=== PATIENT | female | born 1955 | race Two or more races ===

== ENCOUNTER 2020-07-03 10:24 | Outpatient (REF) | payer OTHER, SELFPAY ==
--- NOTE | ~2020-07-03 | XR_ITS ---
EXAMINATION: XR CHEST XR KNEE, LEFT XR SHOULDER, LEFT CLINICAL INFORMATION: Pain left knee and left shoulder. Chest pain. COMPARISON: None TECHNIQUE: 2 views chest. 4 views left knee and 4 views left shoulder. FINDINGS: LEFT SHOULDER: The glenohumeral joint space is normal. There is mild reduction of left AC joint space. No fracture, dislocation, loose bodies, or soft tissue calcification seen. LEFT KNEE: There is mild loss of medial and patellofemoral compartment joint space. No visible acute fracture, dislocation or lytic process seen. No abnormal joint effusion seen. CHEST 2 VIEWS: The lungs are well expanded and clear. The heart size and pulmonary vascularity are normal. There is cement augmentation of T12, T9 and T8 vertebrae for compression fracture. XR/XR chest 2V IMPRESSION: Mild degenerative changes left AC joint. The left shoulder joint is otherwise unremarkable. Mild degenerative changes medial and patellofemoral compartment left knee. No acute fracture, dislocation or subluxation seen. No acute cardiopulmonary process seen in the chest. There is cement augmentation for compression fractures, as described above.
--- NOTE | ~2020-07-03 | XR_ITS ---
EXAMINATION: XR CHEST XR KNEE, LEFT XR SHOULDER, LEFT CLINICAL INFORMATION: Pain left knee and left shoulder. Chest pain. COMPARISON: None TECHNIQUE: 2 views chest. 4 views left knee and 4 views left shoulder. FINDINGS: LEFT SHOULDER: The glenohumeral joint space is normal. There is mild reduction of left AC joint space. No fracture, dislocation, loose bodies, or soft tissue calcification seen. LEFT KNEE: There is mild loss of medial and patellofemoral compartment joint space. No visible acute fracture, dislocation or lytic process seen. No abnormal joint effusion seen. CHEST 2 VIEWS: The lungs are well expanded and clear. The heart size and pulmonary vascularity are normal. There is cement augmentation of T12, T9 and T8 vertebrae for compression fracture. XR/XR knee LT 4V IMPRESSION: Mild degenerative changes left AC joint. The left shoulder joint is otherwise unremarkable. Mild degenerative changes medial and patellofemoral compartment left knee. No acute fracture, dislocation or subluxation seen. No acute cardiopulmonary process seen in the chest. There is cement augmentation for compression fractures, as described above.
--- NOTE | ~2020-07-03 | XR_ITS ---
EXAMINATION: XR CHEST XR KNEE, LEFT XR SHOULDER, LEFT CLINICAL INFORMATION: Pain left knee and left shoulder. Chest pain. COMPARISON: None TECHNIQUE: 2 views chest. 4 views left knee and 4 views left shoulder. FINDINGS: LEFT SHOULDER: The glenohumeral joint space is normal. There is mild reduction of left AC joint space. No fracture, dislocation, loose bodies, or soft tissue calcification seen. LEFT KNEE: There is mild loss of medial and patellofemoral compartment joint space. No visible acute fracture, dislocation or lytic process seen. No abnormal joint effusion seen. CHEST 2 VIEWS: The lungs are well expanded and clear. The heart size and pulmonary vascularity are normal. There is cement augmentation of T12, T9 and T8 vertebrae for compression fracture. XR/XR shoulder LT min 2V IMPRESSION: Mild degenerative changes left AC joint. The left shoulder joint is otherwise unremarkable. Mild degenerative changes medial and patellofemoral compartment left knee. No acute fracture, dislocation or subluxation seen. No acute cardiopulmonary process seen in the chest. There is cement augmentation for compression fractures, as described above.
[2020-07-03 10:58] LABS: Basophils Percent Auto 0.2 % (0-2); Eosinophils Absolute Auto 0.6 X10*3/uL (0.0-0.4); Eosinophils Percent Auto 9.5 % (0-4); Hematocrit 43.4 % (37-47); Hemoglobin 14.1 g/dl (12.0-16.0); Imm Gran Abs Auto 0.03 X10*3/uL (0.00-0.03); Imm Gran Pct Auto 0.5 % (0.0-0.4); Lymphocytes Absolute Auto 0.7 X10*3/uL (1.2-4.9); Lymphocytes Percent Auto 10.6 % (20-40); MANUAL DIFF FLAG SCAN; Mean Corpuscular HGB Conc 32.5 g/dl (31.0-35.0); Mean Corpuscular Hemoglobin 30.8 pg (27.0-33.0); Mean Corpuscular Volume 94.8 fL (80-98); Mean Platelet Volume 10.2 fL (9.4-12.3); Monocytes Absolute Auto 0.5 X10*3/uL (0.1-1.2); Monocytes Percent Auto 6.9 % (2-11); Neutrophils Absolute Auto 4.7 X10*3/uL (2.0-8.3); Neutrophils Percent Auto 72.3 % (45-73); Platelet Count 158 X10*3/uL (160-400); Red Blood Count 4.58 X10*6/uL (4.20-5.50); Red Cell Distribution Width 12.6 % (11.0-16.0); SCAN SMEAR FLAG 1; White Blood Count 6.5 X10*3/uL (4.8-10.8)
[2020-07-03 11:27] LABS: Alanine Aminotransferase 16 U/L (0-31); Albumin Level 4.3 g/dL (3.5-5.0); Alkaline Phosphatase 92 U/L (39-117); Anion Gap 15 (12-20); Aspartate Amino Transferase 19 U/L (5-31); Bilirubin Total 0.7 mg/dL (0.0-1.0); Blood Urea Nitrogen 15 mg/dL (9-16); Calcium 9.1 mg/dL (8.4-10.2); Carbon Dioxide 25 mmol/L (22-29); Chloride 106 mmol/L (96-108); Estimated Glomerular Filt Rate > 60; Glucose Random 109 mg/dL (60-115); Magnesium 1.8 mg/dL (1.6-2.6); Potassium 4.1 mmol/L (3.3-5.1); Sodium 142 mmol/L (135-145); Total Protein 7.2 g/dL (6.5-8.0)
[2020-07-03 11:28] LABS: SLIDE REVIEW VERIFIED
[2020-07-03 11:51] LABS: TSH reflex Free T4 0.83 uIU/mL (0.32-4.0)
[2020-07-03 12:03] LABS: Erythrocyte Sedimentation Rate 21 MM/HR (0-20)
== END 2020-07-03 10:25 | disposition home or self-care (01) ==
LOC: HO.LAB 10:24
PROVIDERS: PCP Physician Assistant; Visit Provider Internal Medicine
DX: R25.2 Cramp and spasm (principal); R07.89 Other chest pain; M25.562 Pain in left knee; M25.512 Pain in left shoulder; I10 Essential (primary) hypertension; M79.7 Fibromyalgia; E78.00 Pure hypercholesterolemia, unspecified
CPT/HCPCS: 36415; 71046; 73030; 73564; 80053; 83735; 84443; 85025; 85652

== ENCOUNTER 2021-01-08 10:02 | Outpatient (REF) | payer OTHER, SELFPAY ==
[2021-01-08 11:13] LABS: B Type Natriuretic Peptide 43 pg/mL (<100)
[2021-01-08 11:27] LABS: Alanine Aminotransferase 34 U/L (0-31); Albumin Level 4.3 g/dL (3.5-5.0); Alkaline Phosphatase 75 U/L (39-117); Anion Gap 13 (12-20); Aspartate Amino Transferase 39 U/L (5-31); Bilirubin Total 0.2 mg/dL (0.0-1.0); Blood Urea Nitrogen 18 mg/dL (9-16); C Reactive Protein 0.55 mg/dL (< or = 0.50); Calcium 9.7 mg/dL (8.4-10.2); Carbon Dioxide 25 mmol/L (22-29); Chloride 109 mmol/L (96-108); Cholesterol 222 mg/dL; Estimated Glomerular Filt Rate > 60; Glucose Fasting 105 mg/dL (60-99); HDL Cholesterol 56 mg/dL; LDL Cholesterol Calculated 130 mg/dl; Rheumatoid Factor < 15.0 IU/mL (<15.0); Sodium 142 mmol/L (135-145); Total Protein 7.2 g/dL (6.5-8.0); Triglycerides 184 mg/dL
[2021-01-08 11:38] LABS: TSH reflex Free T4 0.76 uIU/mL (0.32-4.0)
[2021-01-08 11:44] LABS: Erythrocyte Sedimentation Rate 13 MM/HR (0-20)
[2021-01-11 19:41] LABS: Anti Nuclear Antibody Pattern Nuclear, Homogeneous; Anti Nuclear Antibody Screen POSITIVE (NEGATIVE); Anti Nuclear Antibody Titer 1:40 titer
== END 2021-01-08 10:03 | disposition home or self-care (01) ==
LOC: HO.LAB 10:02
PROVIDERS: PCP Physician Assistant; Visit Provider Physician Assistant
DX: J42 Unspecified chronic bronchitis (principal); M35.3 Polymyalgia rheumatica; I10 Essential (primary) hypertension; E66.9 Obesity, unspecified
CPT/HCPCS: 36415; 80053; 80061; 83880; 84443; 85652; 86038; 86039; 86140; 86431

== ENCOUNTER 2021-01-24 14:53 | Outpatient (REF) | payer OTHER, SELFPAY ==
--- NOTE | ~2021-01-24 | MM_ITS ---
EXAMINATION: MM SCREENING DIGITAL BREAST TOMOSYNTHESIS, BILATERAL CLINICAL INFORMATION: Screening. Asymptomatic. The lifetime risk of breast cancer based on the Tyrer-Cuzick Model is 5%. COMPARISON: Mammography: 03/14/2018, 12/10/2015 TECHNIQUE: Digital breast tomosynthesis is performed in both the craniocaudal and mediolateral oblique views along with computer-aided detection (CAD). Synthesized 2D images are generated from the tomosynthesis. Additional left MLO view is provided. FINDINGS: There are scattered areas of fibroglandular density (ACR BI-RADS breast composition Category b). There are no significant masses, abnormal calcifications, or other abnormalities. Parenchymal pattern is similar to prior study. The axilla and skin contours are unremarkable. MM/MM tomosynthesis screening BI IMPRESSION: No mammographic evidence of malignancy. ASSESSMENT: BI-RADS 1: Negative RECOMMENDATION: Routine annual mammography screening. This patient's information was entered into a reminder system with a target due date for their next mammogram.
== END 2021-01-24 14:54 | disposition home or self-care (01) ==
LOC: HO.MAMMO 14:53
PROVIDERS: Visit Provider Physician Assistant
DX: Z12.31 Encounter for screening mammogram for malignant neoplasm of breast (principal)
CPT/HCPCS: 77063; 77067

== ENCOUNTER 2021-03-02 10:05 | Outpatient (REF) | payer OTHER, SELFPAY ==
--- NOTE | ~2021-03-02 | XR_ITS ---
EXAMINATION: XR CHEST CLINICAL INFORMATION: Chronic bronchitis COMPARISON: Previous chest x-ray June 2020 TECHNIQUE: 2 views of the chest were obtained. FINDINGS: The cardiac and mediastinal contours are stable. The lungs are clear. There is no pleural effusion or pneumothorax. There is increased thoracic kyphosis. There are multiple old thoracic vertebral body compression fractures and post vertebroplasty change. This is similar to most recent exam June 2020. XR/XR chest 2V IMPRESSION: No evidence for acute disease in the chest.
[2021-03-02 11:21] LABS: C Reactive Protein 5.91 mg/dL (< or = 0.50)
[2021-03-02 12:02] LABS: Erythrocyte Sedimentation Rate 44 MM/HR (0-20)
== END 2021-03-02 10:06 | disposition home or self-care (01) ==
LOC: HO.XRAY 10:05
PROVIDERS: PCP Physician Assistant; Visit Provider Physician Assistant
DX: M35.3 Polymyalgia rheumatica (principal); J42 Unspecified chronic bronchitis
CPT/HCPCS: 36415; 71046; 85652; 86140

== ENCOUNTER 2021-06-03 13:40 | Outpatient (REF) | payer OTHER, SELFPAY ==
[2021-06-03 14:31] LABS: C Reactive Protein 1.11 mg/dL (< or = 0.50)
[2021-06-03 14:46] LABS: Erythrocyte Sedimentation Rate 23 MM/HR (0-20)
== END 2021-06-03 13:41 | disposition home or self-care (01) ==
LOC: HO.LAB 13:40
PROVIDERS: PCP Physician Assistant; Visit Provider Physician Assistant
DX: M35.3 Polymyalgia rheumatica (principal)
CPT/HCPCS: 36415; 85652; 86140

== ENCOUNTER → 2021-07-15 09:29 | Outpatient (REF) | payer OTHER, SELFPAY ==
--- NOTE | 2021-07-15 09:32 | CA_ITS ---
Acquisition Time: 2021-07-15 09:47:41 Total Exercise Time: 00:01:21 Test Indications: sob Medications: SEE CHART Protocol: GRAHAM Max HR: 130 BPM 84% of Pred: 154 BPM Max BP: 225/090 mmHG Max Work Load: 3.4 METS Exercise stress test with exercise 1 min 21 sec of Graham protocol, achieving 85% MPHR, with severe shortness of breath and need to stop exercise, no chest discomfort, with isolated PVC, with hypertensive response to exercise with max BP 225/90, with nondiagnostic EKG for ischemia due to suboptimal exercise time, however no ischemic changes noted at achieved workload. In recovery her breathing gradually improved to baseline. BP normalized. Test reviewed with Dr aLke. Message sent to Neville Cosby with report and recommendation for a pharmacological nuclear stress test. Referred By: Carlos Cosby Overread By: CARLA CHANDLER
== END ==
LOC: HO.CARD 09:29
PROVIDERS: PCP Physician Assistant; Visit Provider Physician Assistant
DX: R06.02 Shortness of breath (principal)
CPT/HCPCS: 93017

== ENCOUNTER 2021-08-29 15:21 | Outpatient (REF) | payer OTHER, SELFPAY ==
--- NOTE | 2021-08-29 08:25 | PFT_ITS ---
FLOWS: FEV1 of 42% of predicted at 0.85 L. FVC of 62% of predicted at 1.61 L. FEV1 to FVC ratio of 0.53. No bronchodilator response. LUNG VOLUMES: Total lung capacity 83% of predicted at 3.73 L. Residual volume 115% of predicted at 2.21 L. Slow vital capacity 60% of predicted at 1.52 L. Expiratory reserve volume 34% of predicted at 0.20 L. Diffusion capacity is severely decreased, diffusion capacity adjust to being moderately decreased after correction for alveolar ventilation. IMPRESSION: Severe obstructive ventilatory defect with no bronchodilator response. Decreased expiratory reserve volume suggests extrathoracic restriction likely secondary to abdominal obesity. Decreased diffusion capacity suggests emphysema. MD ADA Marquez/MODL / [id number]
== END 2021-08-29 15:22 | disposition home or self-care (01) ==
LOC: HO.RESP 15:21
PROVIDERS: PCP Physician Assistant; Visit Provider Physician Assistant
DX: J42 Unspecified chronic bronchitis (principal); R06.02 Shortness of breath
CPT/HCPCS: 94060; 94618; 94727; 94729

== ENCOUNTER → 2021-08-30 15:22 | Outpatient (BNVA) | payer OTHER, SELFPAY | PROVIDERS: PCP Physician Assistant; Visit Provider Internal Medicine Pulmonary Disease | DX: J42 Unspecified chronic bronchitis (principal) ==

== ENCOUNTER → 2021-10-06 10:44 | Outpatient (BNVA) | payer OTHER, SELFPAY | PROVIDERS: PCP Physician Assistant; Visit Provider Internal Medicine Pulmonary Disease | DX: J42 Unspecified chronic bronchitis (principal) | CPT/HCPCS: 94618 ==

== ENCOUNTER 2021-11-25 10:43 | Outpatient (REF) | payer OTHER, SELFPAY ==
--- NOTE | ~2021-11-25 | XR_ITS ---
EXAMINATION: XR CHEST XR SCAPULA-LEFT XR THORACIC SPINE CLINICAL INFORMATION: Unspecified chronic bronchitis and radiculopathy thoracic region. COMPARISON: Chest radiograph done on 03/02/2021. TECHNIQUE: 2 views of the chest, 2 views, 3 images of the thoracic spine and 2 views of the left scapula were obtained. FINDINGS: CHEST: Persistent stable prominent bronchovascular markings are present bilaterally throughout both lung burr, may represent peribronchiolar thickening related to clinically known chronic bronchitis. No evidence of any superimposed dense airspace consolidation. The cardiac mediastinal silhouette is within normal limit. No evidence of any pleural effusion or pneumothorax. Overall, no significant change. THORACIC SPINE: Post vertebral augmentation-related changes are noted at mid to lower thoracic spine, similar to prior study dated 03/02/2021. Moderate diffuse osteopenia. No evidence of any new compression fracture. Multilevel moderate degenerative spondylosis. The posterior appendages are intact. The paraspinal soft tissues are unremarkable. LEFT SCAPULA: Moderate diffuse osteopenia. The scapula is intact. Soft tissues are unremarkable. XR/XR thoracic spine 2V IMPRESSION: 1. The chest radiograph shows no significant change since most recent prior study dated 03/02/2021. Reidentified diffuse bronchovascular prominence, most consistent with clinically known chronic bronchitis. 2. The radiographs of the thoracic spine and the left scapula shows moderate diffuse osteopenia and superimposed post vertebral augmentation-related changes at mid to lower thoracic spine, similar to prior study dated 03/02/2021. 3. Specifically, no radiographic evidence of any new compression fracture at the thoracic spine or displaced left scapular fracture.
--- NOTE | ~2021-11-25 | XR_ITS ---
EXAMINATION: XR CHEST XR SCAPULA-LEFT XR THORACIC SPINE CLINICAL INFORMATION: Unspecified chronic bronchitis and radiculopathy thoracic region. COMPARISON: Chest radiograph done on 03/02/2021. TECHNIQUE: 2 views of the chest, 2 views, 3 images of the thoracic spine and 2 views of the left scapula were obtained. FINDINGS: CHEST: Persistent stable prominent bronchovascular markings are present bilaterally throughout both lung burr, may represent peribronchiolar thickening related to clinically known chronic bronchitis. No evidence of any superimposed dense airspace consolidation. The cardiac mediastinal silhouette is within normal limit. No evidence of any pleural effusion or pneumothorax. Overall, no significant change. THORACIC SPINE: Post vertebral augmentation-related changes are noted at mid to lower thoracic spine, similar to prior study dated 03/02/2021. Moderate diffuse osteopenia. No evidence of any new compression fracture. Multilevel moderate degenerative spondylosis. The posterior appendages are intact. The paraspinal soft tissues are unremarkable. LEFT SCAPULA: Moderate diffuse osteopenia. The scapula is intact. Soft tissues are unremarkable. XR/XR scapula LT IMPRESSION: 1. The chest radiograph shows no significant change since most recent prior study dated 03/02/2021. Reidentified diffuse bronchovascular prominence, most consistent with clinically known chronic bronchitis. 2. The radiographs of the thoracic spine and the left scapula shows moderate diffuse osteopenia and superimposed post vertebral augmentation-related changes at mid to lower thoracic spine, similar to prior study dated 03/02/2021. 3. Specifically, no radiographic evidence of any new compression fracture at the thoracic spine or displaced left scapular fracture.
--- NOTE | ~2021-11-25 | XR_ITS ---
EXAMINATION: XR CHEST XR SCAPULA-LEFT XR THORACIC SPINE CLINICAL INFORMATION: Unspecified chronic bronchitis and radiculopathy thoracic region. COMPARISON: Chest radiograph done on 03/02/2021. TECHNIQUE: 2 views of the chest, 2 views, 3 images of the thoracic spine and 2 views of the left scapula were obtained. FINDINGS: CHEST: Persistent stable prominent bronchovascular markings are present bilaterally throughout both lung burr, may represent peribronchiolar thickening related to clinically known chronic bronchitis. No evidence of any superimposed dense airspace consolidation. The cardiac mediastinal silhouette is within normal limit. No evidence of any pleural effusion or pneumothorax. Overall, no significant change. THORACIC SPINE: Post vertebral augmentation-related changes are noted at mid to lower thoracic spine, similar to prior study dated 03/02/2021. Moderate diffuse osteopenia. No evidence of any new compression fracture. Multilevel moderate degenerative spondylosis. The posterior appendages are intact. The paraspinal soft tissues are unremarkable. LEFT SCAPULA: Moderate diffuse osteopenia. The scapula is intact. Soft tissues are unremarkable. XR/XR chest 2V IMPRESSION: 1. The chest radiograph shows no significant change since most recent prior study dated 03/02/2021. Reidentified diffuse bronchovascular prominence, most consistent with clinically known chronic bronchitis. 2. The radiographs of the thoracic spine and the left scapula shows moderate diffuse osteopenia and superimposed post vertebral augmentation-related changes at mid to lower thoracic spine, similar to prior study dated 03/02/2021. 3. Specifically, no radiographic evidence of any new compression fracture at the thoracic spine or displaced left scapular fracture.
== END 2021-11-25 10:44 | disposition home or self-care (01) ==
LOC: HO.XRAY 10:43
PROVIDERS: PCP Physician Assistant; Visit Provider Physician Assistant
DX: M54.14 Radiculopathy, thoracic region (principal); J42 Unspecified chronic bronchitis
CPT/HCPCS: 71046; 72070; 73010

== ENCOUNTER 2022-02-17 14:29 | Outpatient (REF) | payer MEDICARE, SELFPAY ==
--- NOTE | ~2022-02-17 | CT_ITS ---
EXAMINATION: CT CHEST SCREENING CLINICAL INFORMATION: Former smoker. Quit 3 years ago. 48 pack year history. COMPARISON: Previous chest x-ray November 2021 TECHNIQUE: Multidetector volumetric CT imaging of the chest is performed without contrast using low dose technique. Additional 2D coronal and sagittal reformatted images and axial 3D maximum intensity projection (MIP) images are generated on the CT workstation. This CT examination was performed using dose optimization techniques as appropriate, variously including the following: *Automated exposure control *Adjustment of mA and/or kV according to patient size (this includes techniques or standardized protocols for targeted exams where dose is matched to indication/reason for exam; i.e. extremities or head) *Use of iterative reconstruction technique DLP: 63 mGy-cm FINDINGS: LUNGS: Emphysema. Azygos lobe. Multiple small calcified pulmonary nodules suggestive of calcified granulomas largest measuring 2 to 3 mm. 2 small 2 mm noncalcified left upper lobe nodules axial image 72 and 75 series 5. 3 mm peripheral or subpleural right upper lobe nodule adjacent to the fissure axial image 216 series 5. Scarring or subsegmental atelectasis in the anterior segment of the right upper lobe. Volume loss to the right middle lobe and atelectasis. Segmental atelectasis at the left lung base in the left lower lobe and lingula. MEDIASTINUM: The mediastinum is normal. CORONARY ARTERY CALCIFICATION: Mild PLEURA: There is no pleural effusion. No pleural mass or thickening. AXILLA: No lymphadenopathy. UPPER ABDOMEN: Low-attenuation lesions exophytic to the lateral right kidney, question representing cysts. These are new from previous CT of the abdomen and pelvis October 2012 OSSEOUS STRUCTURES: T12, T9 and T8 vertebral body impression fractures and augmentation. There is posterior extrusion of cement at the T9 level. T10 mild to moderate compression fracture. CT/CT lung screening IMPRESSION: Emphysema. Small calcified and noncalcified pulmonary nodules. Volume loss and atelectasis of the right middle lobe. Subsegmental versus right upper lobe and left lung base. New low-attenuation lesions exophytic to the lateral right kidney. Follow-up renal ultrasound recommended. Multiple compression fractures and evidence of cement augmentation. ASSESSMENT: Lung-RADS category 2: Benign Previous cement augmentation. RECOMMENDATION: Annual low-dose chest CT follow-up recommended
== END 2022-02-17 14:30 | disposition home or self-care (01) ==
LOC: HO.CT 14:29
PROVIDERS: Visit Provider Physician Assistant Medical
DX: Z12.2 Encounter for screening for malignant neoplasm of respiratory organs (principal); Z87.891 Personal history of nicotine dependence
CPT/HCPCS: 71271; G0296

== ENCOUNTER 2022-03-15 09:28 | Outpatient (REF) | payer MEDICARE, SELFPAY ==
--- NOTE | ~2022-03-15 | MM_ITS ---
EXAMINATION: BONE DENSITOMETRY CLINICAL INDICATION: Asymptomatic menopausal state. Status post vertebral augmentation 3 levels thoracic spine. COMPARISON: Previous BD dated 07/25/2018 and baseline BD dated 12/10/2015. CT chest 02/17/2022. TECHNIQUE: Using a [employer] DXA System (software version: 13.1) manufactured by [employer], dual-energy x-ray absorptiometry was performed of the lumbar spine and left hip. The images are of good technical quality. Summary results are attached. FINDINGS: AP SPINE L1-L4: Current: BMD 0.770 g/cm2, Z-score -2.2, T-score -3.4, osteoporosis, 0.9% increase from previous, 8.7% decrease from baseline (<5% change is not significant). Prior: BMD 0.763 g/cm2. Baseline: BMD 0.843 g/cm2. LEFT FEMUR, NECK: Current: BMD 0.725 g/cm2, Z-score -1.0, T-score -2.3, osteopenia. Prior: BMD 0.696 g/cm2. Baseline: BMD 0.818 g/cm2. LEFT FEMUR, TOTAL: Current: BMD 0.746 g/cm2, Z-score -1.1, T-score -2.1, osteopenia, 1.2% increase from previous, 9.2% decrease from baseline (<5% change is not significant). Prior: BMD 0.737 g/cm2. Baseline: BMD 0.822 g/cm2. IDENTIFIED RISK FACTORS: Osteoporosis. Secondary osteoporosis (early menopause). HISTORY OF FRACTURE: Compression fracture thoracic spine with vertebral augmentation T8, T9, T12. MEDICATIONS: None listed. MM/XR DEXA axial skeleton IMPRESSION: 1. DIAGNOSIS: Severe osteoporosis based on the lowest T-score value of -3.4 in the lumbar spine and history thoracic vertebral compression fractures applying World Health Organization criteria. 2. 10-YEAR FRACTURE RISK PREDICTION, FRAX: According to the guidelines, FRAX calculation should only be performed on patients in the osteopenia bone density category.?Therefore, FRAX was not performed on this patient.? 3. Treatment Recommendations: NOF guidelines recommend consideration for treatment in postmenopausal women and men age 50 and older presenting with the following: -A hip or vertebral (clinical or morphometric) fracture. -T-score less than or equal to -2.5 at the femoral neck or spine after appropriate evaluation to exclude secondary causes. -Low bone mass at the hip or spine and a 10-year fracture probability by FRAX of greater than or equal to 3% for hip fracture or greater than or equal to 20% for major osteoporotic fracture based on the [place] adapted WHO algorithm. 4. Other Recommendations: All treatment decisions require clinical judgment and consideration of individual patient factors, including patient preferences, comorbidities, previous drug use, risk factors not captured in the FRAX model (e.g. frailty, falls, vitamin D deficiency, increased bone turnover, interval significant decline in bone density) and possible under or overestimation of fracture risk by FRAX. Additional medical evaluation for secondary cause of low bone mineral density may be appropriate. FUTURE SCAN RECOMMENDATION: People with diagnosed cases of osteoporosis or at high risk for fracture should have regular bone mineral density tests. For patients eligible for Medicare, routine testing is allowed once every 2 years. The testing frequency can be increased to one year for patients who have rapidly progressing disease, those who are receiving or discontinuing medical therapy to restore bone mass, or have additional risk factors.
--- NOTE | 2022-03-15 10:11 | ECG_ITS ---
Test Reason : z00.00 Blood Pressure : / mmHG Vent. Rate : 096 BPM Atrial Rate : 096 BPM P-R Int : 124 ms QRS Dur : 098 ms QT Int : 354 ms P-R-T Axes : 073 -23 038 degrees QTc Int : 447 ms Normal sinus rhythm Incomplete right bundle branch block Borderline ECG When compared to the previous EKG of Incomplete right bundle branch block is present Referred By: Carlos Cosby Electronically Signed By:BASILIO LUIS MD
== END 2022-03-15 09:29 | disposition home or self-care (01) ==
LOC: HO.MAMMO 09:28
PROVIDERS: PCP Physician Assistant; Visit Provider Physician Assistant
DX: M80.00XD Age-related osteoporosis with current pathological fracture, unspecified site, subsequent encounter for fracture with routine healing (principal); Z78.0 Asymptomatic menopausal state; Z13.6 Encounter for screening for cardiovascular disorders
CPT/HCPCS: 77080; 93005

== ENCOUNTER 2022-03-28 10:18 | Outpatient (REF) | payer MEDICARE, SELFPAY ==
--- NOTE | ~2022-03-28 | MM_ITS ---
EXAMINATION: MM SCREENING DIGITAL BREAST TOMOSYNTHESIS, BILATERAL CLINICAL INFORMATION: Screening. Asymptomatic. The lifetime risk of breast cancer based on the Tyrer-Cuzick Model is 3.3%. COMPARISON: Mammography: January 24, 2021 and studies dating back to August 01, 2014 TECHNIQUE: Digital breast tomosynthesis is performed in both the craniocaudal and mediolateral oblique views along with computer-aided detection (CAD). Synthesized 2D images are generated from the tomosynthesis. FINDINGS: There are scattered areas of fibroglandular density (ACR BI-RADS breast composition Category b). There are no significant masses, abnormal calcifications, or other abnormalities. MM/MM tomosynthesis screening BI IMPRESSION: No significant change. ASSESSMENT: BI-RADS 1: Negative RECOMMENDATION: Routine annual mammography screening. This patient's information was entered into a reminder system with a target due date for their next mammogram.
== END 2022-03-28 10:19 | disposition home or self-care (01) ==
LOC: HO.MAMMO 10:18
PROVIDERS: Visit Provider Physician Assistant
DX: Z12.31 Encounter for screening mammogram for malignant neoplasm of breast (principal)
CPT/HCPCS: 77063; 77067

== ENCOUNTER → 2022-05-10 10:16 | Outpatient (BNVA) | payer MEDICARE, SELFPAY | PROVIDERS: PCP Physician Assistant; Visit Provider Nurse Practitioner Family | DX: Z12.11 Encounter for screening for malignant neoplasm of colon (principal); R19.7 Diarrhea, unspecified | CPT/HCPCS: 99202 ==

== ENCOUNTER → 2022-06-14 09:54 | Outpatient (BNVA) | payer MEDICARE, SELFPAY | PROVIDERS: PCP Physician Assistant; Referring Provider Physician Assistant; Visit Provider Nurse Practitioner Family | DX: Z01.818 Encounter for other preprocedural examination (principal); K59.04 Chronic idiopathic constipation | CPT/HCPCS: 99212 ==

== ENCOUNTER → 2022-07-06 11:38 | Outpatient (BNVA) | payer MEDICARE, SELFPAY | PROVIDERS: PCP Physician Assistant; Visit Provider Internal Medicine Pulmonary Disease | DX: Z01.811 Encounter for preprocedural respiratory examination (principal); J42 Unspecified chronic bronchitis; M54.9 Dorsalgia, unspecified; Z99.81 Dependence on supplemental oxygen | CPT/HCPCS: 99212 ==

== ENCOUNTER → 2022-08-22 10:33 | Outpatient (BNVA) | payer MEDICARE, SELFPAY | PROVIDERS: PCP Physician Assistant; Referring Provider Physician Assistant; Visit Provider Nurse Practitioner Family | DX: Z12.11 Encounter for screening for malignant neoplasm of colon (principal); K59.04 Chronic idiopathic constipation | CPT/HCPCS: 99212 ==

== ENCOUNTER 2022-09-09 10:15 | Outpatient (REF) | payer MEDICARE, SELFPAY ==
[2022-09-09 10:43] LABS: Hematocrit 43.4 % (37.0-47.0); Mean Corpuscular HGB Conc 32.3 g/dl (31.0-35.0); Mean Corpuscular Hemoglobin 31.4 pg (27.0-33.0); Mean Corpuscular Volume 97.3 fL (80.0-98.0); Mean Platelet Volume 10.3 fL (9.4-12.3); Platelet Count 179 X10*3/uL (160-400); Red Blood Count 4.46 X10*6/uL (4.20-5.50); Red Cell Distribution Width 12.4 % (11.0-16.0); White Blood Count 5.8 X10*3/uL (4.8-10.8)
[2022-09-09 11:21] LABS: Alanine Aminotransferase 20 U/L (0-31); Albumin Level 4.2 g/dL (3.5-5.0); Alkaline Phosphatase 93 U/L (39-117); Anion Gap 15 (12-20); Aspartate Amino Transferase 30 U/L (5-31); Bilirubin Total 0.5 mg/dL (0.0-1.0); Blood Urea Nitrogen 28 mg/dL (9-16); Calcium 9.6 mg/dL (8.4-10.2); Carbon Dioxide 23 mmol/L (22-29); Chloride 111 mmol/L (96-108); Estimated Glomerular Filt Rate 49; Glucose Fasting 121 mg/dL (60-99); Potassium 4.7 mmol/L (3.3-5.1); Sodium 144 mmol/L (135-145)
[2022-09-09 11:38] LABS: TSH reflex Free T4 0.98 uIU/mL (0.32-4.0)
[2022-09-09 12:01] LABS: Creatinine Urine 226.56 mg/dL; Microalbum/Creatinine Ratio Ur 35.7 ug/mg cr
== END 2022-09-09 10:16 | disposition home or self-care (01) ==
LOC: HO.XRAY 10:15
PROVIDERS: PCP Physician Assistant; Visit Provider Physician Assistant
DX: E66.9 Obesity, unspecified (principal); R53.83 Other fatigue; I10 Essential (primary) hypertension
CPT/HCPCS: 36415; 80053; 82043; 84443; 85027

== ENCOUNTER 2022-09-11 12:42 | Outpatient (REF) | payer MEDICARE, SELFPAY ==
--- NOTE | ~2022-09-11 | XR_ITS ---
EXAMINATION: XR SHOULDER, LEFT CLINICAL INFORMATION: M77.8 - Other enthesopathies, not elsewhere classified COMPARISON: None available. TECHNIQUE: AP external rotation, Grashey, scapular Y, and axillary views of the left shoulder. FINDINGS: Partially imaged mid thoracic kyphoplasty or vertebroplasty cement. The bones and soft tissues otherwise appear unremarkable. No fracture appreciated. Glenohumeral and acromioclavicular alignment is anatomic with normal joint space. No abnormal soft tissue calcifications. XR/XR shoulder LT min 2V IMPRESSION: Unremarkable plain film examination of the left shoulder.
== END 2022-09-11 12:43 | disposition home or self-care (01) ==
LOC: HO.XRAY 12:42
PROVIDERS: PCP Physician Assistant; Visit Provider Physician Assistant
DX: M77.8 Other enthesopathies, not elsewhere classified (principal)
CPT/HCPCS: 73030

== ENCOUNTER → 2022-09-26 11:14 | Outpatient (BNVA) | payer MEDICARE, SELFPAY | PROVIDERS: PCP Physician Assistant; Visit Provider Internal Medicine Pulmonary Disease | DX: J44.9 Chronic obstructive pulmonary disease, unspecified (principal); Z79.899 Other long term (current) drug therapy; Z99.81 Dependence on supplemental oxygen | CPT/HCPCS: 99212 ==

== ENCOUNTER 2022-11-30 10:36 | Outpatient (AMB) | payer MEDICARE, SELFPAY ==
[2022-11-30 10:39] VITALS: BP 130/72; PULSE 90; O2SAT 96; BMI 35.3
--- NOTE | 2022-11-30 10:39 | A.OFFPC_ITS ---
Vital Signs 11/30/22 10:39 Height 4 ft 10.27 in Weight 170 lb 8 oz BMI 35.3 BP 130/72 Blood Pressure Location Lt brachial Position Sitting Pulse 90 Pulse Source Pulse Oximeter Pulse Oximetry (%) 96 Oxygen Delivery Method Room Air Intake Visit Reasons: f/u HTN Intake Note: Patient is here to follow up on HTN. 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 Accompanied by: Self / Same As Patient Allergies morphine Allergy (Unknown, Verified 11/30/22 11:06) Unknown Medication List - Last Reconciled 11/30/22 by Carlos Cosby PA-C acetaminophen ER (Mapap Arthritis Pain) 650 mg PO Q8H PRN albuterol sulfate 90 mcg/actuation 2 puffs inhalation Q6H PRN 30 days alendronate (Fosamax) 70 mg PO QWEEK 12 weeks aspirin 81 mg PO DAILY bisacodyl (Dulcolax (bisacodyl)) 10 mg (2 x 5 mg) PO ONCE 1 day blood pressure monitor As directed blood pressure test kit-medium As directed ibuprofen 600 mg PO TID PRN 30 days lisinopril-hydrochlorothiazide 20-12.5 mg 1 tab PO DAILY 90 days polyethylene glycol 3350 (Miralax) 238 grams PO ONCE sertraline 50 mg PO DAILY 90 days Stiolto Respimat 2.5-2.5 mcg/actuation (tiotropium-olodaterol) 2 puffs inhalation DAILY 30 days NS tramadol 50 mg PO BEDTIME 10 days Tobacco use date assessed: 08/28/22 Fall risk assessment: No Falls in past year Last assessed Fall Risk: 11/30/22 Dental Screening Dental Screen Date: 11/30/22 Did you have a dental visit in the last 12 months?: Yes Did you have a dental problem in the last 6 months where you did not have access to dental care?: No Was dental information given to patient?: Patient has dentist HPI f/u HTN HPI Details Patient is a 66-year-old female here today for follow-up visit.? Patient's past medical history significant for hypertension, bilateral shoulder pain, COPD, lumbar Radiculopathy, obesity. Patient recently send for cardiac stress test though was able to finish the test due to shortness of breath and hypertensive response. Now has repeat nuclear cardiac stress pending. Concern--> has been physical therapy for left shoulder which has been getting better. reports not having right shoulder pain and decreased range of motion is asking to go to physical therapy for right shoulder. .. Hypertension:? At last visit we are noted elevated blood pressure. Started on lisinopril hydrochlorothiazide as combo agent. Blood pressure much improved and will continue this medication. l .. COPD:? Was a former smoker.? Patient has followed up with pulmonology and was started on an oral and supplemental oxygen.? 6 minute walking test showed hypoxemia and need for supplemental oxygen.? Has been started on maintenance inh aler and feels her breathing has been much improved. ? Has not been able to wear her supplemental oxygen due to still working in her O2 canister is too large.? Does use supplemental oxygen at home. [facility] Medical History (Updated 11/30/22 @ 12:45 by Carlos Cosby PA-C) Anxiety Back pain COPD (chronic obstructive pulmonary disease) Fatigue HTN (hypertension) Knee osteoarthritis Lumbar radiculopathy, chronic Obesity (BMI 30-39.9) Osteoporosis (~2015) Personal history of nicotine dependence PMR (polymyalgia rheumatica) Supplemental oxygen dependent Surgical History History of kyphoplasty (~2016) History of tubal ligation Family History Father Heart disease Diabetes mellitus Mother Stroke Social History Housing: House Alcohol intake: never Patient Tobacco Use Status: Former Tobacco user (2019) Quit Date: 2019 e-Cigarette/Vaping Use: Never Used Second Hand Smoke Exposure: No service: No Current occupational status: employed Cognitive needs: No Hearing needs: No Vision needs: No Questionnaire Thrive Questionnaire Date Thrive assessed: 08/28/22 FANG-7 AMB Questionnaire FANG-7 Date FANG - 7 assessed: 08/28/22 Source: Developed by Drs. Lester Pompa, Angeli Huerta, Colin Hugo and colleagues, with an educational grupo from [employer]. Review of Systems Const Denies headache(s) Eyes Denies loss of vision ENT Denies vertigo, Denies dizziness, Denies headache(s) and Denies sore throat Card Denies chest pain, Denies leg edema and Denies lightheadedness Resp Denies cough, Denies hemoptysis and Denies wheezing GI Denies abdominal pain, Denies melena, Denies constipation, Denies diarrhea and Denies vomiting Denies urinary frequency, Denies dysuria and Denies urinary urgency Musc Denies arthralgias, Denies joint swelling, Denies numbness and Denies tingling Neuro Denies Abnormal speech present, Denies behavioral changes, Denies vertigo, Denies dizziness, Denies headache(s), Denies loss of vision, Denies memory loss, Denies numbness and Denies tingling Psych Denies anxiety, Denies behavioral changes, Denies depression, Denies memory loss and Denies panic attacks Herberth/Lymph Denies easy bleeding and Denies easy bruising Aller/Immun Denies wheezing Physical exam (Primary Care) Vital Signs: Last Vital Signs Pulse 90 11/30/22 10:39 BP 130/72 11/30/22 10:39 Pulse Ox 96 11/30/22 10:39 Oxygen Delivery Method Room Air 11/30/22 10:39 BMI result Body Mass Index 35.3 Tobacco/Smoking Status: Tobacco use Status Tobacco use date assessed 08/28/22 11/30/22 10:40 Patient Tobacco Use Status Former Tobacco user (2019) 11/30/22 10:40 e-Cigarette/Vaping Use Never Used 11/30/22 10:40 Thrive Assessment: Date of Thrive Assessment Date Thrive assessed 08/28/22 11/30/22 10:40 Const General: healthy appearing, no acute distress, alert and awake Nutritional Appearance: well nourished Orientation/consciousness: oriented to person, oriented to place and oriented to time [facility] Ears: TM's normal bilaterally General nose exam: Normal nasal mucous membranes and turbinates present Eyes Conjunctivae: conjunctivae normal Sclerae: sclerae normal Pupils: Equal, round and reactive pupils present Neck Neck: Yes no lymphadenopathy and Yes no JVD Thyroid: Thyroid normal Carotids: no bruits Resp Effort & Inspection: normal respiratory effort and not tachypneic Auscultation: no crackles, no rales, no rhonchi and no wheezes Cardio Rate: regular rate Rhythm: regular rhythm Heart sounds: no murmurs and normal S1 and S2 GI Palpation (GI): Soft to palpation, nontender, no hepatomegaly and no splenomegaly Auscultation: normal bowel sounds Skin General skin exam: no rashes or lesions noted and dry skin Neuro General: oriented to person, oriented to place and oriented to time Cranial nerves: Yes Equal, round and reactive pupils present Speech: No Abnormal speech present Gait exam (Neuro): Normal gait present Motor exam (neuro): no tremor noted Extrem Right upper extremity: full ROM Left upper extremity: full ROM Right lower extremity: full ROM; no edema Left lower extremity: full ROM; no edema Psych Mental Status: mental status grossly normal Speech and movement: Normal speech and movement present Affect: normal affect Attitude: cooperative Thought process: Normal thought process present Assessment and Plan Assessment & Plan (1) HTN (hypertension): Code(s): I10 - Essential (primary) hypertension Qualifiers: Hypertension type: primary hypertension Qualified Code(s): I10 - Essential (primary) hypertension Plan: Patient's blood pressure much improved since adjusting her blood pressure medication. Reports less shortness of breath and chest discomfort. Of note did Graham protocol stress test that did show hypertensive response and shortness of breath. Has been rescheduled for nuclear stress test. (2) Right shoulder tendinitis: Code(s): M77.8 - Other enthesopathies, not elsewhere classified Plan: Patient has been in physical therapy for her left shoulder tendinitis which has been getting better. Unfortunately has started having right shoulder pain and d ecreased range of motion and would like to do physical therapy for right shoulder. (3) COPD (chronic obstructive pulmonary disease): Code(s): J44.9 - Chronic obstructive pulmonary disease, unspecified Qualifiers: COPD type: chronic bronchitis Chronic bronchitis type: unspecified Qualified Code(s): J42 - Unspecified chronic bronchitis Plan: Patient has stop smoking. Is followed by pulmonology. Continues on maintenance inhaler and only p.r.n. use of her albuterol inhaler. Patient denies any recent exacerbations in her COPD. (4) Borderline high cholesterol: Code(s): E78.9 - Disorder of lipoprotein metabolism, unspecified Plan: Most recent lipid panel showing borderline high total cholesterol. Will recheck fasting lipid panel (5) Abnormal stress test: Code(s): R94.39 - Abnormal result of other cardiovascular function study Plan: As per HPI patient did our abnormal stress test for with symptoms of shortness of breath and hypertensive response. Now will be going for nuclear stress test. Orders: Orders PT Evaluation and Treatment Today M77.8 - Other enthesopathies, not elsewhere classified Microalbumin, Random (w Creat) Today I10 - Essential (primary) hypertension Comprehensive [place]. Panel Fast Today I10 - Essential (primary) hypertension Lipid Panel Today E78.9 - Disorder of lipoprotein metabolism, unspecified Medications: Discontinued polyethylene glycol 3350 (Miralax) As directed by gastroenterology department at [facility] Discontinued Reason: Doctor's Order 238 grams PO ONCE 238 grams 0RF Z12.11 - Encounter for screening for malignant neoplasm of colon Coding Level of Care Code Est Pt Level 4 (85860) Diagnoses HTN (hypertension) I10 Hypertension type: primary hypertension Right shoulder tendinitis M77.8 COPD (chronic obstructive pulmonary disease) J42 COPD type: chronic bronchitis Chronic bronchitis type: unspecified Borderline high cholesterol E78.9 Abnormal stress test R94.39
== END 2022-11-30 11:24 | disposition home or self-care (01) ==
PROVIDERS: Visit Provider Physician Assistant
DX: I10 Essential (primary) hypertension (principal); M77.8 Other enthesopathies, not elsewhere classified; J42 Unspecified chronic bronchitis; E78.9 Disorder of lipoprotein metabolism, unspecified; R94.39 Abnormal result of other cardiovascular function study
CPT/HCPCS: 99214

== ENCOUNTER 2022-12-01 12:00 | Outpatient (RCR) | payer MEDICARE, SELFPAY ==
--- NOTE | 2022-09-28 13:56 | MHC.PT.DC ---
[facility] [place] [facility] [place] Office [place] Office [address] Romeo Wynn [facility] [phone] F: [phone] F: [phone] F: [phone] F: [phone] Physical Therapy Discharge Report Diagnosis: other enthesopathies, not elsewhere classified Left shoulder tendonitis Date of Surgery: N/A Date of Evaluation: 09/27/22 Date of Discharge: Treatments to Date: 1 Cancellations to Date: No Shows to Date: Discharge Status: Discharge Summary: Pt is a pleasant 67yo F who presents to PT with L shoulder pain. She presents to PT with current impairments in pain, decreased L shoulder ROM, decreased L shoulder strength, soft tissue restrictions and impaired posture. She is limited functionally by lifting, overhead ADLs, reaching behind her back, and sleeping. She is an excellent candidate for skilled PT in order to address current impairments to facilitate return to PLOF. She is recommended to be seen 2x/week for 4 weeks and will be reassessed at that time. Electronically signed by: Please sign and return to therapist. Thank you for your referral.
--- NOTE | 2022-12-14 14:51 | MHC.PT.DC ---
[facility] [place] Office [place] Office [place] Office [address] Romeo Wynn [address] [phone] F: [phone] F: [phone] F: [phone] F: [phone] Physical Therapy Discharge Report Diagnosis: other enthesopathies, not elsewhere classified Left shoulder tendonitis Date of Surgery: N/A Date of Evaluation: 09/27/22 Date of Discharge: 12/14/22 Treatments to Date: 16 Cancellations to Date: No Shows to Date: Discharge Status: Improved Function Independent with HEP Discharge Summary: Pt was seen for skilled PT from 09/27/22-12/01/22. Her last scheduled and attended appointment was 12/01/22. She made progress with skilled PT however she continued to have some discomfort throughout L shoulder. She improved her score on SPADI outcome measure from 104/130 on initial PT evaluation to 24/130 at D/C. She is I with HEP. She has reached a functional plateau with skilled PT and is being D/C to HEP. Electronically signed by: Yary Davis, PT, DPT Please sign and return to therapist. Thank you for your referral.
== END 2022-12-14 14:50 | disposition home or self-care (01) ==
LOC: HO.PT 12:00
PROVIDERS: PCP Physician Assistant; Visit Provider Physician Assistant
DX: M77.8 Other enthesopathies, not elsewhere classified (principal)
CPT/HCPCS: 97110; 97112; 97140; 97162

== ENCOUNTER → 2022-12-08 09:52 | Outpatient (REF) | payer MEDICARE, SELFPAY ==
--- NOTE | ~2022-12-08 | NM_ITS ---
Lexiscan Myocardial perfusion study Indication: Abnormal stress test Technique: The patient was brought in for a Lexiscan perfusion study on 12/08/2022 and was injected 0.4 mg of Lexiscan intravenously. Within a minute of this injection 30 mCi of sestamibi was given intravenously. Images were obtained using the SPECT gamma camera interlaced with the gating device. Images were obtained in supine position. Resting perfusion study was performed on 12/12/2022. Patient was administered 30 mCi of sestamibi intravenously at rest. Images were then obtained in supine position. Images were processed with the software and compared side to side in short axis, horizontal long axis and vertical long axis views. Total DLP 160mGy-cm. Findings: Raw acquisition reviewed. Arms by the patient's side. The stress perfusion study showed no significant perfusion defects. Both uncorrected as well as CT attenuation corrected images were reviewed. The gated study shows normal LV systolic function with calculated LVEF of 71%. LV cavity is normal in size. The gated study shows normal wall thickening and contraction of segments. Resting study shows no significant perfusion defects. Gating at rest reveals normal wall motion with ejection fraction at 57%. The findings are consistent with no clear reversible or fixed perfusion defects. NM/NM cardiolite stress test Impression: 1. Myocardial perfusion imaging study shows normal myocardial perfusion. No evidence of any ischemia or infarction. 2. Gated LVEF is 71% during stress and 57% during rest. 3. Transient ischemic dilatation not present. EKG component of the test reported separately.
--- NOTE | 2022-12-08 09:55 | CA_ITS ---
Acquisition Time: 2022-12-08 09:55:45 Total Exercise Time: 00:02:00 Test Indications: Abnormal Treadmill Test Medications: ALBUTEROL ASA FOSAMAX LISINOPRIL/HCTZ SERTRALINE Protocol: LEXISCAN Max HR: 127 BPM 83% of Pred: 153 BPM Max BP: 146/084 mmHG Max Work Load: 1.0 METS Pharmacological stress test with Lexiscan injection while sitting and kicking her legs, with mild SOB, no chest discomfort, with isolated PVCs, with normotensve response to injection, with nondiagnostic EKGs. Aminophylline 75mg IVp given to reverse Lexiscan. Nuclear images pending. Test reviewed with Dr Connor. Referred By: Carlos Cosby Overread By: Annmarie Bowman
== END ==
LOC: HO.CARD 09:52
PROVIDERS: PCP Physician Assistant; Visit Provider Physician Assistant
DX: R94.39 Abnormal result of other cardiovascular function study (principal)
CPT/HCPCS: 78452; 93017; A9500; J0280; J2785

== ENCOUNTER → 2022-12-08 09:55 | Outpatient (BNV) | payer MEDICARE, SELFPAY | PROVIDERS: PCP Physician Assistant; Visit Provider Nurse Practitioner | DX: R06.02 Shortness of breath (principal); R94.39 Abnormal result of other cardiovascular function study | CPT/HCPCS: 78452; 93016; 93018 ==

== ENCOUNTER 2023-01-10 11:02 | Outpatient (AMB) | payer MEDICARE, SELFPAY ==
[2023-01-10 11:16] VITALS: BP 119/64; PULSE 99; O2SAT 89
--- NOTE | 2023-01-10 11:16 | A.OFFVIS_ITS ---
Intake Vital Signs 01/10/23 11:16 Weight 173 lb 1.006 oz BP 119/64 Blood Pressure Location Lt brachial Position Sitting Pulse 99 Pulse Source Doppler Pulse Oximetry (%) 89 L Oxygen Delivery Method Room Air Intake Visit Reasons: Asthma Allergies morphine Allergy (Unknown, Verified 01/10/23 11:20) Unknown HPI Asthma HPI Details 67-year-old lady, active 30+ pack-year s moker with underlying severe COPD supplemental oxygen 2-3 L dependent.? Patient previously has been using Stiolto with good control of his symptoms, however recently she is not able to use the set up appropriately. Though she denies any recent exacerbations. [facility] Medical History (Updated 11/30/22 @ 12:45 by Carlos Cosby PA-C) Fatigue Back pain Osteoporosis (~2015) Personal history of nicotine dependence Supplemental oxygen dependent PMR (polymyalgia rheumatica) HTN (hypertension) COPD (chronic obstructive pulmonary disease) Knee osteoarthritis Lumbar radiculopathy, chronic Obesity (BMI 30-39.9) Anxiety Surgical History History of kyphoplasty (~2016) History of tubal ligation Family History Father Heart disease Diabetes mellitus Mother Stroke Social History Housing: House Alcohol intake: never Patient Tobacco Use Status: Former Tobacco user (2019) Quit Date: 2019 e-Cigarette/Vaping Use: Never Used Second Hand Smoke Exposure: No service: No Current occupational status: employed Cognitive needs: No Hearing needs: No Vision needs: No Review of Systems Const Denies daytime sleepiness, Denies excessive sweating, Denies fatigue, Denies fever(s), Denies lethargy, Denies malaise, Denies night sweats, Denies snoring and Denies weight loss Eyes Denies blurry vision and Denies itchy eyes ENT Denies nasal congestion, Denies post nasal drip, Denies sinus pain, Denies sinus pressure and Denies other ( Thrush) Card Denies chest pain, Denies pedal edema, Denies dyspnea, Denies orthopnea and Denies paroxysmal nocturnal dyspnea Resp Denies cough, Denies hemoptysis, Denies excessive phlegm production, Denies dyspnea, Denies snoring and Denies wheezing GI Denies abdominal pain and Denies heartburn Musc Denies myalgias, Denies arthralgias and Denies joint swelling Skin/Breast Denies rash Neuro Denies memory loss and Denies seizure-like activity Psych Denies abnormal sleep pattern, Denies anxiety and Denies memory loss Endo Denies excessive sweating, Denies fatigue and Denies heat intolerance Herberth/Lymph Denies easy bruising Aller/Immun Denies itchy eyes, Denies seasonal rhinorrhea and Denies wheezing Physical Exam Vital Signs: Last Vital Signs Pulse 99 01/10/23 11:16 BP 119/64 01/10/23 11:16 Pulse Ox 89 L 01/10/23 11:16 Oxygen Delivery Method Room Air 01/10/23 11:16 Const General: no acute distress and alert Nutritional Appearance: not obese Orientation/consciousness: Other orientation findings ( oriented) HEENT Head: Yes atraumatic Eyes General: appearance normal, both eyes and all related structures Sclerae: sclerae normal EOM: EOMs intact bilaterally Neck Neck: Yes supple Lymphatic: no lymphadenopathy noted Resp Effort & Inspection: normal respiratory effort and no use of accessory muscles Auscultation: clear to auscultation bilaterally Cardio Rate: regular rate Rhythm: regular rhythm Heart sounds: no gallops, no murmurs and no rubs Skin General skin exam: other ( warm) Extrem General: No clubbing, No cyanosis and No edema Assessment & Plan Assessment & Plan (1) COPD (chronic obstructive pulmonary disease): Code(s): J44.9 - Chronic obstructive pulmonary disease, unspecified Qualifiers: COPD type: chronic bronchitis Chronic bronchitis type: unspecified Qualified Code(s): J42 - Unspecified chronic bronchitis Plan: Will switch Stiolto to BrezTri. Continue albuterol MDI. (2) Supplemental oxygen dependent: Code(s): Z99.81 - Dependence on supplemental oxygen Plan: Continues for mental oxygen to maintain O2 saturation of 88-92%. Medications: New Breztri Aerosphere 160-9-4.8 mcg/actuation (eegbafmlvo-ohmascqt-mslcmqwzzi) 2 inhalations inhalation BID 10.7 grams 6RF 30 days NS Discontinued Stiolto Respimat 2.5-2.5 mcg/actuation (tiotropium-olodaterol) Discontinued Reason: Doctor's Order 2 puffs inhalation DAILY 4 grams 6RF 30 days NS Coding Level of Care Code Est Pt Level 4 (39338) Diagnoses Chronic bronchitis, unspecified chronic bronchitis type J42 COPD type: chronic bronchitis Chronic bronchitis type: unspecified Supplemental oxygen dependent Z99.81
== END 2023-01-10 11:31 | disposition home or self-care (01) ==
PROVIDERS: PCP Physician Assistant; Visit Provider Internal Medicine Pulmonary Disease
DX: J42 Unspecified chronic bronchitis (principal); Z99.81 Dependence on supplemental oxygen
CPT/HCPCS: 99214

== ENCOUNTER → 2023-01-10 11:02 | Outpatient (BNVA) | payer MEDICARE, SELFPAY | PROVIDERS: Visit Provider Internal Medicine Pulmonary Disease | DX: J44.9 Chronic obstructive pulmonary disease, unspecified (principal); Z99.81 Dependence on supplemental oxygen | CPT/HCPCS: 99212 ==

== ENCOUNTER 2023-02-07 11:00 | Outpatient (RCR) | payer MEDICARE, SELFPAY ==
[2022-12-27 10:53] VITALS: BP 133/65; PULSE 82; O2SAT 88
--- NOTE | 2022-12-27 15:00 | MHC.PT.EP ---
[facility] [place] Office [place] Office [place] Office [address] [phone] F: [phone] F: [phone] F: [phone] F: [phone] Physical Therapy Plan of Care Date of Evaluation: 12/27/22 Date of Surgery: Diagnosis: RIGHT shoulder tendonitis (MD Dx) RIGHT shoulder subacromial impingement syndrome, adhesive capsulitis (PT Dx) (likely OA also present, and cannot rule out RTC tear) Assessment: Patient is a pleasant 67 y.o. female with PMHx of HTN, osteoporosis, and COPD on supplemental oxygen, who is referred to PT by Carlos Cosby PA-C. with Dx of RIGHT shoulder tendonitis. PT diagnosis is RIGHT shoulder subacromial impingement syndrome, adhesive capsulitis. likely OA also present, and cannot rule out RTC tear, would need imaging to confirm or refute. Patient impairments include pain, tightness, limited ROM in RIGHT shoulder, weakness R shoulder. Patient current functional limitations are lifting overhead, styling hair, unable to cook/clean, putting on undershirts. Patient will benefit from skilled PT to address aforementioned impairments and functional limitations to meet established goals. Frequency and Duration: The patient will be seen 2x/week for 4 weeks Short Term Goals: 2 weeks Patient demonstrates consistency and independence with HEP to self manage symptoms. Permastone Mechanic Goals: 4 weeks Patient presents with increased R shoulder flexion AROM 125 degrees to reach to style her hair. Patient presentes with increased R shoulder flexion 4/5 to be able to put items in refrigerator. Treatment Plan: Modalities to reduce pain, spasms and effusion. Manual therapy to restore motion and function. Therapeutic exercise to improve strength and flexibility. Neuromuscular re-education for posture and balance. Therapeutic activities to return to functional activities of daily living. Electronically signed by: Zeynep Mart, PT, DPT Please sign and return to therapist. Thank you for your referral.
--- NOTE | 2023-02-07 13:21 | MHC.PT.DC ---
[facility] [place] Office [place] Office [place] Office [address] Romeo Wynn [address] [phone] F: [phone] F: [phone] F: [phone] F: [phone] Physical Therapy Discharge Report Diagnosis: RIGHT shoulder tendonitis (MD Dx) RIGHT shoulder subacromial impingement syndrome, adhesive capsulitis (PT Dx) (likely OA also present, and cannot rule out RTC tear) Date of Surgery: Date of Evaluation: 12/27/22 Date of Discharge: 02/07/23 Treatments to Date: 8 Cancellations to Date: No Shows to Date: Discharge Status: Achieved Goals Improved Function Discharge Summary: Since patient has not brought in her supplemental oxygen and on RA her O2 SAT is 88-90% I have not had her perform exercises in PT. She does have an exercise program to improve posture, stretch neck and work on strengthening scapular stabilizers to improve GHJ mobility. We discuss that not using her oxygen causes more accessory muscle use and therefore overusing UT/LS and other muscles that help in respiration which makes them chronically tight, effecting her shoulder. She completed course of approved PT visits by insurance and has HEP. She does exhibit both improved R shoulder AROM and strength. Electronically signed by: Zeynep Mart, PT, DPT Please sign and return to therapist. Thank you for your referral.
== END 2023-02-07 13:21 | disposition home or self-care (01) ==
LOC: HO.PT 11:00
PROVIDERS: PCP Physician Assistant; Visit Provider Physician Assistant
DX: M77.8 Other enthesopathies, not elsewhere classified (principal)
CPT/HCPCS: 97035; 97110; 97140; 97162

== ENCOUNTER 2023-02-28 10:25 | Outpatient (AMB) | payer MEDICARE, SELFPAY ==
[2023-02-28 10:39] VITALS: BP 124/70; PULSE 88; O2SAT 92; BMI 35.2
--- NOTE | 2023-02-28 10:39 | AM.OFFVISMDC ---
Intake Vital Signs 02/28/23 10:39 Height 4 ft 10.27 in Weight 170 lb 2 oz BMI 35.2 BP 124/70 Blood Pressure Location Lt brachial Position Sitting Pulse 88 Pulse Source Pulse Oximeter Pulse Oximetry (%) 92 Oxygen Delivery Method Room Air Intake Visit Reasons: AWV Blanking Machine Operator Required: No Accompanied by: Self / Same As Patient Allergies morphine Allergy (Unknown, Verified 02/28/23 10:39) Unknown HPI AWV HPI Details Patient is a 67-year-old female here today for annual wellness visits. Concern--> reports she suffered a mechanical fall while moving into a new house and injuring her right flank and upper back. Has osteoporosis thus will get x-rays to evaluate for any fractures. Reviewed patient's tangirnaq of care Also reviewed and given a MOLST form Colonoscopy: Has not been able to be scheduled as she needed clearance from pulmonology due to her pulmonary disease. Mammogram: Has upcoming mammogram Vaccines: Needs pneumonia vaccine, up-to-date with flu, COVID HPI Comments History of Present Illness Details reviewed past medical history- yes reviewed surgical / hospitalization history- yes reviewed current medications- yes reviewed family history- yes home safety throw rugs? grab bars? raised toilet seat? working smoke detectors? activities of daily living difficulty bathing or showering? difficulty dressing? difficulty using the toilet? difficulty getting in and out of bed? difficulty walking? receives help from other person's with any of the above tasks? instrumental activities of daily living uses telephone - gets to place out of walking distance- go shopping for groceries- repairs own meals- does own minor home maintenance- does own laundry- does own housework- manages own money- currently takes medication- end of life planning discussed advanced directives- yes advanced directives on file? discussed wishes expressed in advanced directives. fall risk have you had any falls with injuries in the past year? have you had 2 or more falls in the past year? fall risk assessment: [facility] Medical History Fatigue Back pain Osteoporosis (~2015) Personal history of nicotine dependence Supplemental oxygen dependent PMR (polymyalgia rheumatica) HTN (hypertension) COPD (chronic obstructive pulmonary disease) Knee osteoarthritis Lumbar radiculopathy, chronic Obesity (BMI 30-39.9) Anxiety Surgical History History of kyphoplasty (~2017) History of tubal ligation Family History Father Heart disease Diabetes mellitus Mother Stroke Housing: House Alcohol intake: never Patient Tobacco Use Status: Former Tobacco user (2019) Quit Date: 2019 e-Cigarette/Vaping Use: Never Used Second Hand Smoke Exposure: No service: No Current occupational status: employed Cognitive needs: No Hearing needs: No Vision needs: No Questionnaire Medicare Wellness Checkup What [age] 65-69 What gender do you identify with?: female During the past 4 weeks, how much have you been bothered by emotional problems such as feeling anxious, depressed, irritable, sad or downhearted, and blue?: not at all During the past 4 weeks, has your physical & emotional health limited your social activities with family, friends, neighbors, or groups?: not at all During the past 4 weeks, how much bodily pain have you generally had?: moderate pain During the past 4 weeks, was someone available to help you if you needed & wanted help?: no, not at all During the past 4 weeks, what was the hardest physical activity you could do for at least 2 minutes?: very light Can you get to places out of walking distance without help? (For eg., can you travel alone on buses, taxis or drive your car?): No Can you go shopping for groceries or clothes without someone's help?: No Can you prepare your own meals?: No Can you do your housework without help?: No Because of any health problems, do you need the help of another person with your personal care needs such as eating, bathing, dressing or getting around the house?: No Can you handle your own money without help?: Yes During the past 4 weeks, how would you rate your health in general?: good During the past 4 weeks how have things been going for you?: good & bad parts about equal Are you having difficulties driving your car?: no Do you always fasten your seat belt when you are in a car?: yes, usually During past 4 weeks, have you been bothered by the following: never: Sexual problems?, Teeth or denture problems? and Problems using the telephone? and sometimes: Falling or dizzy when standing up, Trouble eating well? and Tiredness or fatigue? Have you fallen 2 or more times in the past year?: Yes Are you afraid of falling?: Yes Are you a smoker?: no During the past 4 weeks, how many drinks of wine, beer, or other alcoholic beverages did you have?: no alcohol at all Do you exercise for about 20 minutes 3 or more times a week?: no, I usually do not exercise this much Have you been given information to help with the following?: yes: Keeping track of your medications? and no: Hazards in your house that might hurt you? How often do you have trouble taking medicines the way you have been told to take them?: I always take medicine as prescribed How confident are you that you can control & manage most of your health problems?: I do not have any health problems What is your race?: or origin or descent Mini Mental State Exam (MMSE) Orientation What is the (year) (season) (date) (day) (month)?: year, season and date Where are we (state) (county) (town or city) (hospital) (floor)?: county and town or city Attention & Calculation (CHOOSE ONE) Spell WORLD backwards (DLROW): 5 letters Score Score: 10 Activity of Daily Living Bathing - sponge bath, tub bath or shower: receives no assistance (gets in/out by self, if usual bathing means Dressing - getting clothes from closets & drawers, including inner/outer garments & fasteners.: gets clothes & gets completely dressed without help Toileting - going to the 'toilet room' for urine/bowel elimination & cleaning self/arranging clothes: goes to toilet room, cleans self, arranges clothes without help Transfer: moves in & out of bed and chair without help (may use support object) Continence: controls urination/bowel movements completely by self Feeding: feeds self without help Total Score: 0 Information obtained from: patient Using telephone: independent Traveling: independent Shopping: independent Preparing meals: independent Housework: independent Taking medicine: independent Managing money: independent PHQ-9 Over the last 2 weeks, how often have you been bothered by any of the following problems? 1. Little interest or pleasure in doing things: several days 2. Feeling down, depressed, or hopeless: not at all 3. Trouble falling or staying asleep, or sleeping too much: several days 4. Feeling tired or having little energy: not at all 5. Poor appetite or overeating: several days 6. Feeling bad about yourself - or that you are a failure or have let yourself or your family down: not at all 7. Trouble concentrating on things, such as reading the newspaper or watching television: not at all 8. Moving or speaking so slowly that other people could have noticed. Or the opposite - being so fidgety or restless that you have been moving around a lot more than usual: not at all 9. Thoughts that you would be better off or of hurting yourself in some way: not at all Total score: 3 Depression Screening Interpretation: Negative Depression Screening Done: Yes 31317 - PHQ-9 Billing: Yes Source: Developed by Drs. Lester Pompa, Angeli Huerta, Colin Hugo and colleagues, with an educational grupo from [employer]. Physical Exam Vital Signs: Last Vital Signs Pulse 88 02/28/23 10:39 BP 124/70 02/28/23 10:39 Pulse Ox 92 02/28/23 10:39 Oxygen Delivery Method Room Air 02/28/23 10:39 BMI result Body Mass Index 35.2 HEENT Other: hearing screening whisper test- pass Eyes Other: vision screening- 20/ 20 OS OD OU Other: urinary incontinence? no Neuro Other: balance Romberg- normal tandem walk test- able walk-in turned test- able rise from sit to stand- within 2 sec Immunizations pneumoc 20-abraham conj-dip cr(PF) 0.5 mL IM syringe Performing Provider: Carlos Cosby PA-C [facility] Administered by: EMA George on 02/28/23 11:28 Dose Route Admin Location Dispensed Lot Number Expiration Date NDC Psychological Examiner 0.5 mL IM Left Deltoid 0.5 mL [id number] 01/07/24 [employer]/Moped VIS Given Date VIS Provided VIS Publication Date 02/28/23 Single Vaccine 21 Eligibility Eligibility Date Funding Source Not [facility] Eligible 02/28/23 Private Assessment & Plan Assessment & Plan (1) Medicare annual wellness visit, initial: Code(s): Z00.00 - Encounter for general adult medical examination without abnormal findings (2) Rib pain on left side: Code(s): R07.81 - Pleurodynia Plan: Injured left-sided ribs status post fall. (3) Thoracic spine pain: Code(s): M54.6 - Pain in thoracic spine (4) Osteoporosis: Onset Date: ~2015 Comment: (Bone Dexa Lumbar T-score: -2.8 on 12/10/15, -3.5 on 07/25/18), T-score -3.4- 02/2022- Code(s): M81.0 - Age-related osteoporosis without current pathological fracture Qualifiers: Encounter type: subsequent encounter Fracture healing: with routine healing Osteoporosis type: age-related Presence of current pathological fracture: with current pathological fracture Qualified Code(s): M80.00XD - Age-related osteoporosis with current pathological fracture, unspecified site, subsequent encounter for fracture with routine healing Plan: Advised to continue on weekly alendronate. Will recheck bone density in 2023 Orders: Orders XR ribs LT min 3V w CXR1V Today R07.81 - Pleurodynia XR thoracic spine 3V Today M54.6 - Pain in thoracic spine Pneumococcal 20 Immunization Today Z23 - Encounter for immunization Medications: Refilled tramadol 50 mg PO BEDTIME 10 days 10 tabs 0RF M54.14 - Radiculopathy, thoracic region alendronate (Fosamax) Take with water 30 minutes before 1st food for drink and avoid lying down 30 minutes after 70 mg PO QWEEK 12 weeks 12 tabs 2RF M80.00XD - Age-related osteoporosis with current pathological fracture, unspecified site, subsequent encounter for fracture with routine healing Quality Reporting (2019) Depression/Bipolar (159/160/161/177) PHQ-9: Total score: 3 Coding Level of Care Code Medicare First (G0438) Est Pt Level 3 (71232) Diagnoses Medicare annual wellness visit, initial Z00.00 Rib pain on left side R07.81 Thoracic spine pain M54.6 Age-related osteoporosis with current pathological fracture with routine healing, subsequent encounter M80.00XD Encounter type: subsequent encounter Fracture healing: with routine healing Osteoporosis type: age-related Presence of current pathological fracture: with current pathological fracture CPT Codes Advance Care Planning - Time spent: 1-15 minutes, not on file ([id number]) Advance Care Planning Advance Care Planning discussion: Exists, not on file Date of discussion: 02/28/23 Forms completed: [facility] Time spent: 1-15 minutes, not on file Actual minutes spent: 5 Did not discuss due to Cultural/Spiritual beliefs: No
== END 2023-02-28 11:27 | disposition home or self-care (01) ==
PROVIDERS: Visit Provider Physician Assistant
DX: Z00.00 Encounter for general adult medical examination without abnormal findings (principal); R07.81 Pleurodynia; M54.6 Pain in thoracic spine; M80.00XD Age-related osteoporosis with current pathological fracture, unspecified site, subsequent encounter for fracture with routine healing; Z23 Encounter for immunization
CPT/HCPCS: 1124F; 90471; 90677; 99213; G0438

== ENCOUNTER 2023-03-28 11:30 | Outpatient (AMB) | payer MEDICARE, SELFPAY ==
[2023-03-28 11:31] VITALS: BP 136/72; PULSE 88; O2SAT 92; BMI 35.1
--- NOTE | 2023-03-28 11:31 | A.OFFVIS_ITS ---
Intake Vital Signs 03/28/23 11:31 Height 4 ft 10.27 in Weight 169 lb 12.095 oz BMI 35.1 BP 136/72 Blood Pressure Location Lt brachial Position Sitting Pulse 88 Pulse Source Doppler Pulse Oximetry (%) 92 Oxygen Delivery Method Room Air Intake Visit Reasons: hypoxia Talent Acquisition Consultant Required: Yes Talent Acquisition Consultant Name: Nanci Castaneda Allergies morphine Allergy (Unknown, Verified 03/28/23 11:35) Unknown HPI hypoxia HPI Details 68-year-old lady, active 30+ pack-year s moker with underlying severe COPD supplemental oxygen 2-3 L dependent.? She continues on BrezTri and albuterol MDI with good control of her symptoms. She denies any recent exacerbations. [facility] Medical History (Updated 03/28/23 @ 11:35 by Shawn Garcia MD) Personal history of nicotine dependence Fatigue Back pain Osteoporosis (~2015) Supplemental oxygen dependent PMR (polymyalgia rheumatica) HTN (hypertension) COPD (chronic obstructive pulmonary disease) Knee osteoarthritis Lumbar radiculopathy, chronic Obesity (BMI 30-39.9) Anxiety Surgical History History of kyphoplasty (~2016) History of tubal ligation Family History Father Heart disease Diabetes mellitus Mother Stroke Social History Housing: House Alcohol intake: never Patient Tobacco Use Status: Former Tobacco user (2019) Quit Date: 2019 e-Cigarette/Vaping Use: Never Used Second Hand Smoke Exposure: No service: No Current occupational status: employed Cognitive needs: No Hearing needs: No Vision needs: No Review of Systems Const Denies daytime sleepiness, Denies excessive sweating, Denies fatigue, Denies fever(s), Denies lethargy, Denies malaise, Denies night sweats, Denies snoring and Denies weight loss Eyes Denies blurry vision and Denies itchy eyes ENT Denies nasal congestion, Denies post nasal drip, Denies sinus pain, Denies sinus pressure and Denies other ( Thrush) Card Denies chest pain, Denies pedal edema, Denies dyspnea, Denies orthopnea and Denies paroxysmal nocturnal dyspnea Resp Denies cough, Denies hemoptysis, Denies excessive phlegm production, Denies dyspnea, Denies snoring and Denies wheezing GI Denies abdominal pain and Denies heartburn Musc Denies myalgias, Denies arthralgias and Denies joint swelling Skin/Breast Denies rash Neuro Denies memory loss and Denies seizure-like activity Psych Denies abnormal sleep pattern, Denies anxiety and Denies memory loss Endo Denies excessive sweating, Denies fatigue and Denies heat intolerance Herberth/Lymph Denies easy bruising Aller/Immun Denies itchy eyes, Denies seasonal rhinorrhea and Denies wheezing Physical Exam Vital Signs: Last Vital Signs Pulse 88 03/28/23 11:31 BP 136/72 03/28/23 11:31 Pulse Ox 92 03/28/23 11:31 Oxygen Delivery Method Room Air 03/28/23 11:31 BMI result Body Mass Index 35.1 Const General: no acute distress and alert Nutritional Appearance: not obese Orientation/consciousness: Other orientation findings ( oriented) HEENT Head: Yes atraumatic Eyes General: appearance normal, both eyes and all related structures Sclerae: sclerae normal EOM: EOMs intact bilaterally Neck Neck: Yes supple Lymphatic: no lymphadenopathy noted Resp Effort & Inspection: normal respiratory effort and no use of accessory muscles Auscultation: clear to auscultation bilaterally Cardio Rate: regular rate Rhythm: regular rhythm Heart sounds: no gallops, no murmurs and no rubs Skin General skin exam: other ( warm) Extrem General: No clubbing, No cyanosis and No edema Assessment & Plan Assessment & Plan (1) COPD (chronic obstructive pulmonary disease): Code(s): J44.9 - Chronic obstructive pulmonary disease, unspecified Qualifiers: COPD type: chronic bronchitis Chronic bronchitis type: unspecified Qualified Code(s): J42 - Unspecified chronic bronchitis Plan: Well controlled on BrezTri and albuterol MDI. Will refer to Pulmonary Rehab. Continue current regimen. (2) Personal history of nicotine dependence: Comment: (former smoker - onset 21, 1/2ppd x 43yrs, 20pyh - quit 2020) Code(s): Z87.891 - Personal history of nicotine dependence Plan: Lung cancer screening CT chest ordered. (3) Supplemental oxygen dependent: Code(s): Z99.81 - Dependence on supplemental oxygen Plan: Continue supplemental oxygen to maintain O2 saturation of 88-92%. Orders: Orders CT lung screening Today Z87.891 - Personal history of nicotine dependence Coding Level of Care Code Est Pt Level 4 (25104) Diagnoses Chronic bronchitis, unspecified chronic bronchitis type J42 COPD type: chronic bronchitis Chronic bronchitis type: unspecified Personal history of nicotine dependence Z87.891 Supplemental oxygen dependent Z99.81
== END 2023-03-28 11:43 | disposition home or self-care (01) ==
PROVIDERS: PCP Physician Assistant; Visit Provider Internal Medicine Pulmonary Disease
DX: J42 Unspecified chronic bronchitis (principal); Z87.891 Personal history of nicotine dependence; Z99.81 Dependence on supplemental oxygen
CPT/HCPCS: 99214

== ENCOUNTER → 2023-03-28 11:30 | Outpatient (BNVA) | payer MEDICARE, SELFPAY | PROVIDERS: PCP Physician Assistant; Visit Provider Internal Medicine Pulmonary Disease | DX: J42 Unspecified chronic bronchitis (principal); Z87.891 Personal history of nicotine dependence; Z99.81 Dependence on supplemental oxygen | CPT/HCPCS: 99212 ==

== ENCOUNTER → 2023-04-04 10:45 | Outpatient (BNV) | payer MEDICARE, SELFPAY | PROVIDERS: PCP Physician Assistant; Visit Provider Radiology Diagnostic Radiology | DX: Z12.31 Encounter for screening mammogram for malignant neoplasm of breast (principal) | CPT/HCPCS: 77063; 77067 ==

== ENCOUNTER 2023-04-04 10:46 | Outpatient (REF) | payer MEDICARE, SELFPAY | END 2023-04-04 10:47 | disposition home or self-care (01) | LOC: HO.MAMMO 10:46 | PROVIDERS: PCP Physician Assistant; Visit Provider Physician Assistant | DX: Z12.31 Encounter for screening mammogram for malignant neoplasm of breast (principal) | CPT/HCPCS: 77063; 77067 ==

== ENCOUNTER 2023-05-07 12:44 | Outpatient (REF) | payer MEDICARE, SELFPAY ==
--- NOTE | ~2023-05-07 | CT_ITS ---
EXAMINATION: CT CHEST SCREENING CLINICAL INFORMATION: Former smoker, 50 pack year history, quit 1 year ago. COMPARISON: Previous CTs, most recent, 02/17/2022. TECHNIQUE: Multidetector volumetric CT imaging of the chest is performed without contrast using low dose technique. Additional 2D coronal and sagittal reformatted images and axial 3D maximum intensity projection (MIP) images are generated on the CT workstation. This CT examination was performed using dose optimization techniques as appropriate, variously including the following: *Automated exposure control *Adjustment of mA and/or kV according to patient size (this includes techniques or standardized protocols for targeted exams where dose is matched to indication/reason for exam; i.e. extremities or head) *Use of iterative reconstruction technique DLP: 56 mGy-cm FINDINGS: IRRIGATIONIST DESIGNER: No acute cardiopulmonary disease. Vertebroplasties. LUNGS: Trachea and bronchi are patent. Underlying emphysema and scattered atelectasis. Right middle lobe and lingular atelectasis. Scattered 2 mm nodules. No new or enlarging pulmonary nodules. MEDIASTINUM: Unremarkable thyroid. Nonenlarged heart. No pericardial effusion. Atherosclerotic calcifications nonaneurysmal aorta. Nonenlarged pulmonary arteries. CORONARY ARTERY CALCIFICATION: Mild. PLEURA: There is no pleural effusion. No pleural mass. Possible unchanged bilateral major fissural thickening, right greater than left, in association with right middle lobe and regular atelectasis. AXILLA: No lymphadenopathy. UPPER ABDOMEN: Tiny calcification right renal cortex, question nonobstructing renal calculus. Redemonstration right lateral exophytic low density renal lesions, likely cysts. OSSEOUS STRUCTURES: Stable T8, T9 and T12 compression deformities with vertebroplasty cement. Unchanged moderate T10 compression fracture. CT/CT lung screening IMPRESSION: Stable scattered 2 mm or less pulmonary nodules, emphysema, atelectasis. No new or enlarging pulmonary nodules. Nonobstructing right renal calculus and redemonstration exophytic right lateral renal lesions, likely cysts. ASSESSMENT: Lung-RADS category 2: Benign RECOMMENDATION: Routine annual low-dose CT screening in 12 months. Consider renal ultrasound for probable right cysts and nonobstructing renal calculus.
== END 2023-05-07 12:45 | disposition home or self-care (01) ==
LOC: HO.CT 12:44
PROVIDERS: PCP Physician Assistant; Visit Provider Internal Medicine Pulmonary Disease
DX: Z87.891 Personal history of nicotine dependence (principal)
CPT/HCPCS: 71271

== ENCOUNTER 2023-05-21 10:38 | Outpatient (AMB) | payer MEDICARE, SELFPAY ==
[2023-05-21 10:41] VITALS: BP 104/62; PULSE 94; O2SAT 90; BMI 35.0
--- NOTE | 2023-05-21 10:41 | MHC.OFFVIS ---
Intake Vital Signs 05/21/23 10:41 Height 4 ft 10.27 in Weight 169 lb BMI 35.0 BP 104/62 Blood Pressure Location Lt brachial Position Sitting Pulse 94 Pulse Source Doppler Pulse Oximetry (%) 90 L Oxygen Delivery Method Room Air Intake Visit Reasons: hypoxia Allergies morphine Allergy (Unknown, Verified 05/21/23 10:51) Unknown HPI hypoxia HPI Details 68-year-old lady, active 30+ pack-year smoker with underlying severe COPD supplemental oxygen 2-3 L dependent.? She continues on BrezTri and albuterol MDI with good control of her symptoms. She denies any recent exacerbations. She does complain that she can not use via oxygen tanks, they are too heavy for her. Patient also complains today of unrestful sleep, snoring, and daytime sleepiness. [facility] Medical History (Updated 05/21/23 @ 11:00 by Shawn Garcia MD) Personal history of nicotine dependence Fatigue Back pain Osteoporosis (~2015) Supplemental oxygen dependent PMR (polymyalgia rheumatica) HTN (hypertension) COPD (chronic obstructive pulmonary disease) Knee osteoarthritis Lumbar radiculopathy, chronic Obesity (BMI 30-39.9) Anxiety Surgical History History of kyphoplasty (~2016) History of tubal ligation Family History Father Heart disease Diabetes mellitus Mother Stroke Social History Housing: House Alcohol intake: never Patient Tobacco Use Status: Former Tobacco user (2019) Quit Date: 2019 e-Cigarette/Vaping Use: Never Used Second Hand Smoke Exposure: No service: No Current occupational status: employed Cognitive needs: No Hearing needs: No Vision needs: No Review of Systems Const Reports daytime sleepiness, Denies excessive sweating, Reports fatigue, Denies fever(s), Reports lethargy, Denies malaise, Denies night sweats, Reports snoring and Denies weight loss Eyes Denies blurry vision and Denies itchy eyes ENT Denies nasal congestion, Denies post nasal drip, Denies sinus pain, Denies sinus pressure and Denies other ( Thrush) Card Denies chest pain, Denies pedal edema, Denies dyspnea, Denies orthopnea and Denies paroxysmal nocturnal dyspnea Resp Denies cough, Denies hemoptysis, Denies excessive phlegm production, Denies dyspnea, Reports snoring and Denies wheezing GI Denies abdominal pain and Denies heartburn Musc Denies myalgias, Denies arthralgias and Denies joint swelling Skin/Breast Denies rash Neuro Denies memory loss and Denies seizure-like activity Psych Denies abnormal sleep pattern, Denies anxiety and Denies memory loss Endo Denies excessive sweating, Reports fatigue and Denies heat intolerance Herberth/Lymph Denies easy bruising Aller/Immun Denies itchy eyes, Denies seasonal rhinorrhea and Denies wheezing Physical Exam Vital Signs: Last Vital Signs Pulse 94 05/21/23 10:41 BP 104/62 05/21/23 10:41 Pulse Ox 90 L 05/21/23 10:41 Oxygen Delivery Method Room Air 05/21/23 10:41 BMI result Body Mass Index 35.0 Const General: no acute distress and alert Nutritional Appearance: obese Orientation/consciousness: Other orientation findings ( oriented) HEENT Head: Yes atraumatic Eyes General: appearance normal, both eyes and all related structures Sclerae: sclerae normal EOM: EOMs intact bilaterally Neck Neck: Yes supple Lymphatic: no lymphadenopathy noted Resp Effort & Inspection: normal respiratory effort and no use of accessory muscles Auscultation: clear to auscultation bilaterally Cardio Rate: regular rate Rhythm: regular rhythm Heart sounds: no gallops, no murmurs and no rubs Skin General skin exam: other ( warm) Extrem General: No clubbing, No cyanosis and No edema Assessment & Plan Assessment & Plan (1) COPD (chronic obstructive pulmonary disease): Code(s): J44.9 - Chronic obstructive pulmonary disease, unspecified Qualifiers: COPD type: chronic bronchitis Chronic bronchitis type: unspecified Qualified Code(s): J42 - Unspecified chronic bronchitis Plan: Baseline controlled on BrezTri and albuterol MDI. Continue current regimen. (2) Supplemental oxygen dependent: Code(s): Z99.81 - Dependence on supplemental oxygen Plan: Continue supplemental oxygen to maintain O2 saturation of 88-92%. Updated order for B-cylinders placed with [employer]. (3) MIKAYLA (obstructive sleep apnea): Code(s): G47.33 - Obstructive sleep apnea (adult) (pediatric) Plan: Unrestful sleep, snoring, daytime sleepiness. Drummond Sleepiness scale score of 15, will obtain home sleep study. Orders: Orders RT home sleep study Today G47.33 - Obstructive sleep apnea (adult) (pediatric) Coding Level of Care Code Est Pt Level 4 (74709) Diagnoses Chronic bronchitis, unspecified chronic bronchitis type J42 COPD type: chronic bronchitis Chronic bronchitis type: unspecified Supplemental oxygen dependent Z99.81 MIKAYLA (obstructive sleep apnea) G47.33
== END 2023-05-21 11:00 | disposition home or self-care (01) ==
PROVIDERS: PCP Physician Assistant; Visit Provider Internal Medicine Pulmonary Disease
DX: J42 Unspecified chronic bronchitis (principal); Z99.81 Dependence on supplemental oxygen; G47.33 Obstructive sleep apnea (adult) (pediatric)
CPT/HCPCS: 99214

== ENCOUNTER → 2023-05-21 10:38 | Outpatient (BNVA) | payer MEDICARE, SELFPAY | PROVIDERS: PCP Physician Assistant; Visit Provider Internal Medicine Pulmonary Disease | DX: J42 Unspecified chronic bronchitis (principal); G47.33 Obstructive sleep apnea (adult) (pediatric); Z99.81 Dependence on supplemental oxygen; Z87.891 Personal history of nicotine dependence | CPT/HCPCS: 99212 ==

== ENCOUNTER 2023-05-31 10:34 | Outpatient (AMB) | payer MEDICARE, SELFPAY ==
[2023-05-31 10:50] VITALS: BP 120/80; PULSE 90; O2SAT 95; BMI 34.4
--- NOTE | 2023-05-31 10:50 | MHC.PC.OV ---
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 Accompanied by: Self / Same As Patient Allergies morphine Allergy (Unknown, Verified 05/31/23 10:57) Unknown Medication List - Last Reconciled 05/31/23 by Carlos Cosby PA-C acetaminophen ER 650 mg PO Q8H PRN alendronate (Fosamax) 70 mg PO QWEEK 12 weeks bisacodyl (Dulcolax (bisacodyl)) 10 mg (2 x 5 mg) PO ONCE 1 day blood pressure monitor As directed blood pressure test kit-medium As directed [employer] 160-9-4.8 mcg/actuation (dzmmzjeagd-pcfxuzll-rqxnfxunbl) 2 inhalations inhalation BID 30 days NS ibuprofen 600 mg PO TID PRN 30 days lisinopril-hydrochlorothiazide 20-12.5 mg 1 tab PO DAILY 90 days sertraline 50 mg PO DAILY 90 days tramadol 50 mg PO BEDTIME 10 days Tobacco use date assessed: 05/31/23 Fall risk assessment: No Falls in past year Last assessed Fall Risk: 05/31/23 Dental Screening Dental Screen Date: 05/31/23 Did you have a dental visit in the last 12 months?: No Did you have a dental problem in the last 6 months where you did not have access to dental care?: No Was dental information given to patient?: No HPI f/u COPD/ IGM HPI Details Patient is a 68-year-old female here today for follow-up visit.? Patient's past medical history significant for hypertension, bilateral shoulder pain, COPD, lumbar Radiculopathy, obesity. Patient recently send for cardiac stress test though was able to finish the test due to shortness of breath and hypertensive response. Concern--> reports she continues to have frequent loose stools over the last year. She is concerned about this. She denies any upper abdominal pain vomiting or lower abdominal pain. Has tried tikm-yfy-sdexelh antidiarrhea medication though have not been effective. We reviewed her medication list and noted Fosamax may be a potential culprit for loose stool. .. Hypertension:? Patient's blood pressure acceptable today in office. Patient continues on lisinopril hydrochlorothiazide with good effect. .. COPD:? Was a former smoker.? Patient has followed up with pulmonology and was started on an oral and supplemental oxygen.? 6 minute walking test showed hypoxemia and need for supplemental oxygen.? Has been started on maintenance inhaler and feels her breathing has been much improved. ? Has not been able to wear her supplemental oxygen due to still working in her O2 canister is too large.? Does use supplemental oxygen at home. Has recently seen her auto bench mechanic order smaller oxygen canisters [facility] Medical History Personal history of nicotine dependence Fatigue Back pain Osteoporosis (~2015) Supplemental oxygen dependent PMR (polymyalgia rheumatica) HTN (hypertension) COPD (chronic obstructive pulmonary disease) Knee osteoarthritis Lumbar radiculopathy, chronic Obesity (BMI 30-39.9) Anxiety Surgical History History of kyphoplasty (~2016) History of tubal ligation Family History Father Heart disease Diabetes mellitus Mother Stroke Social History Housing: House Alcohol intake: never Patient Tobacco Use Status: Former Tobacco user (2019) Quit Date: 2019 e-Cigarette/Vaping Use: Never Used Second Hand Smoke Exposure: No service: No Current occupational status: employed Cognitive needs: No Hearing needs: No Vision needs: No Questionnaire PHQ-9 Over the last 2 weeks, how often have you been bothered by any of the following problems? 1. Little interest or pleasure in doing things: not at all 2. Feeling down, depressed, or hopeless: not at all 3. Trouble falling or staying asleep, or sleeping too much: not at all 4. Feeling tired or having little energy: not at all 5. Poor appetite or overeating: not at all 6. Feeling bad about yourself - or that you are a failure or have let yourself or your family down: not at all 7. Trouble concentrating on things, such as reading the newspaper or watching television: not at all 8. Moving or speaking so slowly that other people could have noticed. Or the opposite - being so fidgety or restless that you have been moving around a lot more than usual: not at all 9. Thoughts that you would be better off or of hurting yourself in some way: not at all Total score: 0 Depression Screening Interpretation: Negative Depression Screening Done: Yes 93734 - PHQ-9 Billing: Yes Source: Developed by Drs. Lester Pompa, Angeli Huerta, Colin Hugo and colleagues, with an educational grupo from [employer]. Thrive Questionnaire Date Thrive assessed: 05/31/23 I am a: Patient What is your living situation today?: I have a steady place to live Within the past 12 months, did the food you bought not last and you didn't have the money to get more?: Never true Within the past 12 months, did you worry whether your food would run out before you got money to buy more?: Never true Do you have trouble paying for medicines?: No Do you have trouble getting transportation to medical appointments?: No Do you have trouble paying your heating and electricity bill?: No Do you have trouble taking care of your child, family member or friend?: No Do you have trouble with day-to-day activities such as bathing, preparing meals, shopping, managing finances, etc.?: No Are you currently unemployed and looking for a job?: No Are you interested in more education?: No Please select the resources that you would like help with: None Currently or been in a relationship where the following occur: no concerns reported THRIVE Score: 0 AUDIT C Alcohol Use Questionnaire (AUDIT-C) 1. How often do you have a drink containing alcohol?: Never 3. How often do you have six or more drinks on one occasion?: Never Total Score: 0 FANG-7 AMB Questionnaire FANG-7 Date FANG - 7 assessed: 05/31/23 Feeling nervous, anxious, or on edge: 0 = Not at all Not being able to stop or control worryin = Not at all Worrying too much about different things: 0 = Not at all Trouble relaxin = Not at all Being so restless that it is hard to sit still: 0 = Not at all Becoming easily annoyed or irritable: 0 = Not at all Feeling afraid as if something awful might happen: 0 = Not at all Total FANG-7 score (0-4 normal; 5-9 mild; 10-14 moderate; 15-21 severe): 0 Source: Developed by Drs. Lester Pompa, Angeli Huerta, Colin Hugo and colleagues, with an educational grupo from [employer]. FANG-7 Assessment Billing FANG-7 Assessment Tool: FANG-7 Assessment 61591 Review of Systems Const Denies headache(s) Eyes Denies loss of vision ENT Denies vertigo, Denies dizziness, Denies headache(s) and Denies sore throat Card Denies chest pain, Denies leg edema and Denies lightheadedness Resp Denies cough, Denies hemoptysis and Denies wheezing GI Reports diarrhea and Reports loose stools Denies urinary frequency, Denies dysuria and Denies urinary urgency Musc Denies arthralgias, Denies joint swelling, Denies numbness and Denies tingling Neuro Denies Abnormal speech present, Denies behavioral changes, Denies vertigo, Denies dizziness, Denies headache(s), Denies loss of vision, Denies memory loss, Denies numbness and Denies tingling Psych Denies anxiety, Denies behavioral changes, Denies depression, Denies memory loss and Denies panic attacks Herberth/Lymph Denies easy bleeding and Denies easy bruising Aller/Immun Denies wheezing Physical exam (Primary Care) Vital Signs: Last Vital Signs Pulse 90 05/31/23 10:50 BP 120/80 05/31/23 10:50 Pulse Ox 95 05/31/23 10:50 Oxygen Delivery Method Room Air 05/31/23 10:50 BMI result Body Mass Index 34.4 Tobacco/Smoking Status: Tobacco use Status Tobacco use date assessed 05/31/23 05/31/23 10:54 Patient Tobacco Use Status Former Tobacco user (2019) 05/31/23 10:54 e-Cigarette/Vaping Use Never Used 05/31/23 10:54 PHQ-9: PHQ-9 Score PHQ-9: Total score 0 05/31/23 11:00 Depression Screening Interpretation: Negative Thrive Assessment: Date of Thrive Assessment Date Thrive assessed 05/31/23 05/31/23 10:54 Currently or been in a relationship where the following occur: no concerns reported Const General: healthy appearing, no acute distress, alert and awake Nutritional Appearance: well nourished Orientation/consciousness: oriented to person, oriented to place and oriented to time HENMT Ears: TM's normal bilaterally General nose exam: Normal nasal mucous membranes and turbinates present Eyes Conjunctivae: conjunctivae normal Sclerae: sclerae normal Pupils: Equal, round and reactive pupils present Neck Neck: Yes no lymphadenopathy and Yes no JVD Thyroid: Thyroid normal Carotids: no bruits Resp Effort & Inspection: normal respiratory effort and not tachypneic Auscultation: no crackles, no rales, no rhonchi and no wheezes Cardio Rate: regular rate Rhythm: regular rhythm Heart sounds: no murmurs and normal S1 and S2 GI Palpation (GI): Soft to palpation, nontender, no hepatomegaly and no splenomegaly Auscultation: normal bowel sounds Skin General skin exam: no rashes or lesions noted and dry skin Neuro General: oriented to person, oriented to place and oriented to time Cranial nerves: Yes Equal, round and reactive pupils present Speech: No Abnormal speech present Gait exam (Neuro): Normal gait present Motor exam (neuro): no tremor noted Extrem Right upper extremity: full ROM Left upper extremity: full ROM Right lower extremity: full ROM; no edema Left lower extremity: full ROM; no edema Psych Mental Status: mental status grossly normal Speech and movement: Normal speech and movement present Affect: normal affect Attitude: cooperative Thought process: Normal thought process present Assessment and Plan Assessment & Plan (1) HTN (hypertension): Code(s): I10 - Essential (primary) hypertension Qualifiers: Hypertension type: primary hypertension Qualified Code(s): I10 - Essential (primary) hypertension Plan: Patient's blood pressure much improved since adjusting her blood pressure medication. Reports less shortness of breath and chest discomfort. Blood pressures to remain below 140/90 (2) Frequent loose stools: Code(s): R19.7 - Diarrhea, unspecified Qualifiers: Diarrhea type: unspecified type Qualified Code(s): R19.7 - Diarrhea, unspecified Plan: Reports a year history of frequent loose stools. Has not been able to schedule colonoscopy with GI specialty. Has tried ljok-ano-lmboanc meds though have not been helpful. Reviewed patient's medication and noted Fosamax good have a side effect of loose stool. Will hold off on Fosamax for now and see if loose stools resolved. Will supply patient with loperamide and advised on stool bulking agent Metamucil to use on a daily basis. (3) COPD (chronic obstructive pulmonary disease): Code(s): J44.9 - Chronic obstructive pulmonary disease, unspecified Qualifiers: COPD type: chronic bronchitis Chronic bronchitis type: unspecified Qualified Code(s): J42 - Unspecified chronic bronchitis Plan: Patient has stop smoking. Is followed by pulmonology. Patient does desaturate upon exertion. She does use home supplemental oxygen. Continues on maintenance inhaler and only p.r.n. use of her albuterol inhaler. Patient denies any recent exacerbations in her COPD. (4) Borderline high cholesterol: Code(s): E78.9 - Disorder of lipoprotein metabolism, unspecified Plan: Most recent lipid panel showing borderline high total cholesterol. Will recheck fasting lipid panel Medications: New loperamide 2 mg PO Q8H 30 days 90 caps 0RF loose stool R19.7 - Diarrhea, unspecified Changed From acetaminophen ER (Mapap Arthritis Pain) 650 mg PO Q8H PRN 90 tabs 2RF pain To acetaminophen ER 650 mg PO Q8H PRN 90 tabs 2RF pain Refilled sertraline 50 mg PO DAILY 90 days 90 caps 2RF F41.9 - Anxiety disorder, unspecified lisinopril-hydrochlorothiazide 20-12.5 mg 1 tab PO DAILY 90 days 90 tabs 1RF I10 - Essential (primary) hypertension ibuprofen 600 mg PO TID 30 days PRN 90 tabs 1RF pain M77.8 - Other enthesopathies, not elsewhere classified Coding Level of Care Code Est Pt Level 4 (54379) Diagnoses Primary hypertension I10 Hypertension type: primary hypertension Diarrhea, unspecified type R19.7 Diarrhea type: unspecified type Chronic bronchitis, unspecified chronic bronchitis type J42 COPD type: chronic bronchitis Chronic bronchitis type: unspecified Borderline high cholesterol E78.9 Additional Codes FANG-7 Assessment Billing - FANG-7 Assessment Tool: FANG-7 Assessment 51229 ([id number])
== END 2023-05-31 11:12 | disposition home or self-care (01) ==
PROVIDERS: PCP Physician Assistant; Visit Provider Physician Assistant
DX: I10 Essential (primary) hypertension (principal); R19.7 Diarrhea, unspecified; J42 Unspecified chronic bronchitis; E78.9 Disorder of lipoprotein metabolism, unspecified
CPT/HCPCS: 99214

== ENCOUNTER 2023-09-13 07:46 | Outpatient (REF) | payer MEDICARE, SELFPAY ==
[2023-09-13 09:15] LABS: Creatinine Urine 110.24 mg/dL; Microalbum/Creatinine Ratio Ur 21.7 ug/mg cr (<30)
[2023-09-13 09:16] LABS: Alanine Aminotransferase 15 U/L (0-31); Albumin Level 4.2 g/dL (3.5-5.0); Alkaline Phosphatase 82 U/L (39-117); Anion Gap 15 (12-20); Aspartate Amino Transferase 24 U/L (5-31); Bilirubin Total 0.2 mg/dL (0.0-1.0); Blood Urea Nitrogen 29 mg/dL (9-16); Calcium 9.4 mg/dL (8.4-10.2); Carbon Dioxide 20 mmol/L (22-29); Chloride 114 mmol/L (96-108); Cholesterol 245 mg/dL (<200); Estimated Glomerular Filt Rate 55; Glucose Fasting 111 mg/dL (60-99); HDL Cholesterol 49 mg/dL (>40); LDL Cholesterol Calculated 155 mg/dL (<100); Potassium 4.9 mmol/L (3.3-5.1); Sodium 144 mmol/L (135-145); Total Protein 7.3 g/dL (6.5-8.0); Triglycerides 206 mg/dL (<150)
== END 2023-09-13 07:47 | disposition home or self-care (01) ==
LOC: HO.LAB 07:46
PROVIDERS: PCP Physician Assistant; Visit Provider Physician Assistant
DX: I10 Essential (primary) hypertension (principal); E78.9 Disorder of lipoprotein metabolism, unspecified
CPT/HCPCS: 36415; 80053; 80061; 82043; 82570

== ENCOUNTER 2023-09-20 11:21 | Outpatient (AMB) | payer MEDICARE, SELFPAY ==
--- NOTE | 2023-09-20 11:24 | MHC.PC.OV ---
Vital Signs 09/20/23 11:25 Height 4 ft 10.27 in Weight 165 lb BMI 34.2 BP 138/70 Blood Pressure Location Lt brachial Position Sitting Pulse 71 Pulse Source Pulse Oximeter Pulse Oximetry (%) 98 Oxygen Delivery Method Room Air Intake Visit Reasons: f/u COPD/ HTN Allergies morphine Allergy (Unknown, Verified 09/20/23 11:37) Unknown Medication List - Last Reconciled 09/20/23 by Carlos Cosby PA-C acetaminophen ER 650 mg PO Q8H PRN alendronate (Fosamax) 70 mg PO QWEEK 12 weeks bisacodyl (Dulcolax (bisacodyl)) 10 mg (2 x 5 mg) PO ONCE 1 day blood pressure monitor As directed blood pressure test kit-medium As directed [employer] 160-9-4.8 mcg/actuation (xxakbtlafw-knouyicx-azcppcmkul) 2 inhalations inhalation BID 30 days NS ibuprofen 600 mg PO TID PRN 30 days lisinopril-hydrochlorothiazide 20-12.5 mg 1 tab PO DAILY 90 days loperamide 2 mg PO Q8H 30 days sertraline 50 mg PO DAILY 90 days tramadol 50 mg PO BEDTIME 10 days Tobacco use date assessed: 05/31/23 Fall risk assessment: No Falls in past year Last assessed Fall Risk: 09/20/23 Dental Screening Dental Screen Date: 05/31/23 HPI f/u COPD/ HTN HPI Details Patient is a 68-year-old female here today for follow-up visit.? Patient's past medical history significant for hypertension, bilateral shoulder pain, COPD, lumbar Radiculopathy, obesity. Concern--> reports having left flank pain over the last several weeks. She reports the flank pain is very sharp and short-lived. Will send for ultrasound of the left kidney do evaluate nephrolithiasis. She does report having myalgias legs worse at night. Does have hypechloremia which could be causing her myalgias. ---> Will discontinue hydrochlorothiazide .. Hypertension:? Patient's blood pressure acceptable today in office. Patient continues on lisinopril hydrochlorothiazide with good effect. .. COPD:? Was a former smoker.? Patient has followed up with pulmonology and was started on an oral and supplemental oxygen.? 6 minute walking test showed hypoxemia and need for supplemental oxygen.? Has been started on maintenance inhaler and feels her breathing has been much improved. ? Has not been able to wear her supplemental oxygen due to still working in her O2 canister is too large.? Does use supplemental oxygen at home. 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 [facility] Medical History Personal history of nicotine dependence Fatigue Back pain Osteoporosis (~2016) Supplemental oxygen dependent PMR (polymyalgia rheumatica) HTN (hypertension) COPD (chronic obstructive pulmonary disease) Knee osteoarthritis Lumbar radiculopathy, chronic Obesity (BMI 30-39.9) Anxiety Surgical History History of kyphoplasty (~2017) History of tubal ligation Family History Father Heart disease Diabetes mellitus Mother Stroke Social History Housing: House Alcohol intake: never Patient Tobacco Use Status: Former Tobacco user (2019) Tobacco use type: Cigarette e-Cigarette/Vaping Use: Never Used Second Hand Smoke Exposure: No service: No Current occupational status: employed Cognitive needs: No Hearing needs: No Vision needs: No Questionnaire PHQ-9 Over the last 2 weeks, how often have you been bothered by any of the following problems? 1. Little interest or pleasure in doing things: not at all 2. Feeling down, depressed, or hopeless: not at all 3. Trouble falling or staying asleep, or sleeping too much: not at all 4. Feeling tired or having little energy: not at all 5. Poor appetite or overeating: not at all 6. Feeling bad about yourself - or that you are a failure or have let yourself or your family down: not at all 7. Trouble concentrating on things, such as reading the newspaper or watching television: not at all 8. Moving or speaking so slowly that other people could have noticed. Or the opposite - being so fidgety or restless that you have been moving around a lot more than usual: not at all 9. Thoughts that you would be better off or of hurting yourself in some way: not at all Total score: 0 Depression Screening Interpretation: Negative Depression Screening Done: Yes 01070 - PHQ-9 Billing: Yes Source: Developed by Drs. Lester Pompa, Angeli Huerta, Colin Hugo and colleagues, with an educational grupo from [employer]. Thrive Questionnaire Date Thrive assessed: 05/31/23 AUDIT C Alcohol Use Questionnaire (AUDIT-C) 1. How often do you have a drink containing alcohol?: Never 3. How often do you have six or more drinks on one occasion?: Never Total Score: 0 FANG-7 AMB Questionnaire FANG-7 Date FANG - 7 assessed: 05/31/23 Source: Developed by Drs. Lester Pompa, Angeli Huerta, Colin Hugo and colleagues, with an educational grupo from [employer]. Review of Systems Const Denies headache(s) Eyes Denies loss of vision ENT Denies vertigo, Denies dizziness, Denies headache(s) and Denies sore throat Card Denies chest pain, Denies leg edema and Denies lightheadedness Resp Denies cough, Denies hemoptysis and Denies wheezing GI Denies abdominal pain, Denies melena, Denies constipation, Denies diarrhea and Denies vomiting Denies urinary frequency, Denies dysuria and Denies urinary urgency Musc Denies arthralgias, Denies joint swelling, Denies numbness and Denies tingling Neuro Denies Abnormal speech present, Denies behavioral changes, Denies vertigo, Denies dizziness, Denies headache(s), Denies loss of vision, Denies memory loss, Denies numbness and Denies tingling Psych Denies anxiety, Denies behavioral changes, Denies depression, Denies memory loss and Denies panic attacks Herberth/Lymph Denies easy bleeding and Denies easy bruising Aller/Immun Denies wheezing Physical exam (Primary Care) Vital Signs: Last Vital Signs Pulse 71 09/20/23 11:25 BP 138/70 09/20/23 11:25 Pulse Ox 98 09/20/23 11:25 Oxygen Delivery Method Room Air 09/20/23 11:25 BMI result Body Mass Index 34.2 Tobacco/Smoking Status: Tobacco use Status Tobacco use date assessed 05/31/23 09/20/23 11:30 Patient Tobacco Use Status Former Tobacco user (2020) 09/20/23 11:30 Tobacco use type Cigarette 09/20/23 11:30 e-Cigarette/Vaping Use Never Used 09/20/23 11:30 PHQ-9: PHQ-9 Score PHQ-9: Total score 0 09/20/23 11:37 Depression Screening Interpretation: Negative Thrive Assessment: Date of Thrive Assessment Date Thrive assessed 05/31/23 09/20/23 11:30 Const General: healthy appearing, no acute distress, alert and awake Nutritional Appearance: well nourished Orientation/consciousness: oriented to person, oriented to place and oriented to time HENMT Ears: TM's normal bilaterally General nose exam: Normal nasal mucous membranes and turbinates present Eyes Conjunctivae: conjunctivae normal Sclerae: sclerae normal Pupils: Equal, round and reactive pupils present Neck Neck: Yes no lymphadenopathy and Yes no JVD Thyroid: Thyroid normal Carotids: no bruits Resp Effort & Inspection: normal respiratory effort and not tachypneic Auscultation: no crackles, no rales, no rhonchi and no wheezes Cardio Rate: regular rate Rhythm: regular rhythm Heart sounds: no murmurs and normal S1 and S2 GI Palpation (GI): Soft to palpation, nontender, no hepatomegaly and no splenomegaly Auscultation: normal bowel sounds Skin General skin exam: no rashes or lesions noted and dry skin Neuro General: oriented to person, oriented to place and oriented to time Cranial nerves: Yes Equal, round and reactive pupils present Speech: No Abnormal speech present Gait exam (Neuro): Normal gait present Motor exam (neuro): no tremor noted Extrem Right upper extremity: full ROM Left upper extremity: full ROM Right lower extremity: full ROM; no edema Left lower extremity: full ROM; no edema Psych Mental Status: mental status grossly normal Speech and movement: Normal speech and movement present Affect: normal affect Attitude: cooperative Thought process: Normal thought process present Assessment and Plan Assessment & Plan (1) HTN (hypertension): Code(s): I10 - Essential (primary) hypertension Qualifiers: Hypertension type: primary hypertension Qualified Code(s): I10 - Essential (primary) hypertension Plan: Patient's blood pressure much improved since adjusting her blood pressure medication. Reports less shortness of breath and chest discomfort. Unfortunately does have hyperchloremia and some myalgias. Will discontinue hydrochlorothiazide to see if symptoms improve. Blood pressures to remain below 140/90 (2) Frequent loose stools: Code(s): R19.7 - Diarrhea, unspecified Qualifiers: Diarrhea type: unspecified type Qualified Code(s): R19.7 - Diarrhea, unspecified Plan: Has mostly resolved with the use of loperamide (3) COPD (chronic obstructive pulmonary disease): Code(s): J44.9 - Chronic obstructive pulmonary disease, unspecified Qualifiers: COPD type: chronic bronchitis Chronic bronchitis type: unspecified Qualified Code(s): J42 - Unspecified chronic bronchitis Plan: Patient has stop smoking. Is followed by pulmonology. Patient does desaturate upon exertion. She does use home supplemental oxygen. Continues on maintenance inhaler and only p.r.n. use of her albuterol inhaler. Patient denies any recent exacerbations in her COPD. (4) Myalgia, lower leg: Code(s): M79.18 - Myalgia, other site Plan: Reports having myalgias in lower extremities, will discontinue hydrochlorothiazide. Will add on magnesium to help with muscle pain. (5) Left flank pain: Code(s): R10.9 - Unspecified abdominal pain (6) HLD (hyperlipidemia): Code(s): E78.5 - Hyperlipidemia, unspecified Qualifiers: Hyperlipidemia type: mixed hyperlipidemia Qualified Code(s): E78.2 - Mixed hyperlipidemia Plan: Patient's most recent lipid panel showing elevated total cholesterol and LDL. She will try to make dietary modifications in her diet and will recheck lipid panel before next visit. If cholesterol remains elevated will consider low-dose statin therapy. Orders: Orders US renal LT Today R10.9 - Unspecified abdominal pain Comprehensive [place]. Panel Fast 3 Months E78.9 - Disorder of lipoprotein metabolism, unspecified Lipid Panel 3 Months E78.9 - Disorder of lipoprotein metabolism, unspecified Complete Blood Count no Diff 3 Months E78.9 - Disorder of lipoprotein metabolism, unspecified Medications: New lisinopril 20 mg PO DAILY 90 tabs 1RF 90 days I10 - Essential (primary) hypertension magnesium oxide 400 mg PO DAILY 90 tabs 1RF 90 days M79.18 - Myalgia, other site Refilled sertraline 50 mg PO DAILY 90 caps 2RF 90 days F41.9 - Anxiety disorder, unspecified Discontinued tramadol Discontinued Reason: Doctor's Order 50 mg PO BEDTIME 10 days 10 tabs 0RF M54.14 - Radiculopathy, thoracic region lisinopril-hydrochlorothiazide 20-12.5 mg Discontinued Reason: Doctor's Order 1 tab PO DAILY 90 days 90 tabs 1RF I10 - Essential (primary) hypertension Patient Instructions: Goal: Blood pressure to remain below 140/90 Barrier: Adherence to physical activity and healthy eating habits Coding Level of Care Code Est Pt Level 4 (94843) Complex EM visit Add On [id number] Diagnoses Primary hypertension I10 Hypertension type: primary hypertension Diarrhea, unspecified type R19.7 Diarrhea type: unspecified type Chronic bronchitis, unspecified chronic bronchitis type J42 COPD type: chronic bronchitis Chronic bronchitis type: unspecified Myalgia, lower leg M79.18 Left flank pain R10.9 Mixed hyperlipidemia E78.2 Hyperlipidemia type: mixed hyperlipidemia
[2023-09-20 11:25] VITALS: BP 138/70; PULSE 71; O2SAT 98; BMI 34.2
== END 2023-09-20 11:58 | disposition home or self-care (01) ==
PROVIDERS: PCP Physician Assistant; Visit Provider Physician Assistant
DX: I10 Essential (primary) hypertension (principal); R19.7 Diarrhea, unspecified; J42 Unspecified chronic bronchitis; M79.18 Myalgia, other site; R10.9 Unspecified abdominal pain; E78.2 Mixed hyperlipidemia
CPT/HCPCS: 99214; G2211

== ENCOUNTER → 2023-10-02 12:24 | Outpatient (REF) | payer MEDICARE, SELFPAY | LOC: HO.SL 12:24 | PROVIDERS: PCP Physician Assistant; Visit Provider Internal Medicine Pulmonary Disease | DX: G47.33 Obstructive sleep apnea (adult) (pediatric) (principal) | CPT/HCPCS: 95806 ==

== ENCOUNTER → 2023-10-02 13:30 | Outpatient (BNV) | payer MEDICARE, SELFPAY | PROVIDERS: PCP Physician Assistant; Visit Provider Internal Medicine | DX: R06.83 Snoring (principal); R40.0 Somnolence | CPT/HCPCS: 95806 ==

== ENCOUNTER 2023-10-05 10:54 | Outpatient (REF) | payer MEDICARE, SELFPAY ==
--- NOTE | ~2023-10-05 | US_ITS ---
EXAMINATION: US RETROPERITONEAL LIMITED (RENAL ONLY) CLINICAL INFORMATION: Left flank pain. Evaluate for nephrolithiasis and left side. COMPARISON: Renal ultrasound 03/14/2018. CT abdomen and pelvis 03/01/2018. TECHNIQUE: Real-time imaging of the left kidney. FINDINGS: LEFT KIDNEY: 8.6 x 4.1 x 5.3 cm (SAG x AP x TRV). The kidney is normal in size, contour, and echogenicity. Renal cortical thickness is normal. No renal calculi or hydronephrosis. 3.4 x 2.8 x 3.2 cm exophytic lower pole and a 1.2 x 1.0 x 1.0 cm lower pole cortical cyst are seen, no imaging follow-up is recommended. US/US renal LT IMPRESSION: 1. Prior right nephrectomy. 2. No calculi or hydronephrosis within the left kidney.
== END 2023-10-05 10:55 | disposition home or self-care (01) ==
LOC: HO.HMGCX 10:54
PROVIDERS: PCP Physician Assistant; Visit Provider Physician Assistant
DX: R10.9 Unspecified abdominal pain (principal)
CPT/HCPCS: 76775

== ENCOUNTER 2023-10-16 11:23 | Outpatient (AMB) | payer MEDICARE, SELFPAY ==
[2023-10-16 11:26] VITALS: BP 122/62; PULSE 82; O2SAT 92; BMI 34.7
--- NOTE | 2023-10-16 11:26 | A.OFFVIS_ITS ---
Vital Signs 10/16/23 11:26 Height 4 ft 10.27 in Weight 167 lb 8.821 oz BMI 34.7 BP 122/62 Blood Pressure Location Rt brachial Position Sitting Pulse 82 Pulse Source Doppler Pulse Oximetry (%) 92 Oxygen Delivery Method Room Air Intake Visit Reasons: hypoxia Retail Personal Banker Required: Yes Retail Personal Banker Name: Nanci Sheth Tonya Allergies morphine Allergy (Unknown, Verified 09/20/23 11:37) Unknown HPI HPI hypoxia: Details: 68-year-old lady, active 30+ pack-year smoker with underlying severe COPD supplemental oxygen 2-3 L dependent.? She continues on BrezTri and albuterol MDI with good control of her symptoms. She denies any recent exacerbations. She does complain that she can not use via oxygen tanks, they are too heavy for her. She has completed her sleep study that showed no underlying obstructive sleep apnea, but significant nocturnal hypoxia. [facility] Medical History Personal history of nicotine dependence Fatigue Back pain Osteoporosis (~2015) Supplemental oxygen dependent PMR (polymyalgia rheumatica) HTN (hypertension) COPD (chronic obstructive pulmonary disease) Knee osteoarthritis Lumbar radiculopathy, chronic Obesity (BMI 30-39.9) Anxiety Surgical History History of kyphoplasty (~2016) History of tubal ligation Family History Father Heart disease Diabetes mellitus Mother Stroke Social History Housing: House Alcohol intake: never Patient Tobacco Use Status: Former Tobacco user (2019) Tobacco use type: Cigarette e-Cigarette/Vaping Use: Never Used Second Hand Smoke Exposure: No service: No Current occupational status: employed Cognitive needs: No Hearing needs: No Vision needs: No Review of Systems Const Denies daytime sleepiness, Denies excessive sweating, Denies fatigue, Denies fever(s), Denies lethargy, Denies malaise, Denies night sweats, Denies snoring and Denies weight loss Eyes Denies blurry vision and Denies itchy eyes ENT Denies nasal congestion, Denies post nasal drip, Denies sinus pain, Denies sinus pressure and Denies other ( Thrush) Card Denies chest pain, Denies pedal edema, Denies dyspnea, Denies orthopnea and Denies paroxysmal nocturnal dyspnea Resp Denies cough, Denies hemoptysis, Denies excessive phlegm production, Denies dyspnea, Denies snoring and Denies wheezing GI Denies abdominal pain and Denies heartburn Musc Denies myalgias, Denies arthralgias and Denies joint swelling Skin/Breast Denies rash Neuro Denies memory loss and Denies seizure-like activity Psych Denies abnormal sleep pattern, Denies anxiety and Denies memory loss Endo Denies excessive sweating, Denies fatigue and Denies heat intolerance Herberth/Lymph Denies easy bruising Aller/Immun Denies itchy eyes, Denies seasonal rhinorrhea and Denies wheezing Physical Exam Vital Signs: Last Vital Signs Pulse 82 10/16/23 11:26 BP 122/62 10/16/23 11:26 Pulse Ox 92 10/16/23 11:26 Oxygen Delivery Method Room Air 10/16/23 11:26 BMI result Body Mass Index 34.7 Const General: no acute distress and alert Nutritional Appearance: not obese Orientation/consciousness: Other orientation findings ( oriented) HEENT Head: Yes atraumatic Eyes General: appearance normal, both eyes and all related structures Sclerae: sclerae normal EOM: EOMs intact bilaterally Neck Neck: Yes supple Lymphatic: no lymphadenopathy noted Resp Effort & Inspection: normal respiratory effort and no use of accessory muscles Auscultation: clear to auscultation bilaterally Cardio Rate: regular rate Rhythm: regular rhythm Heart sounds: no gallops, no murmurs and no rubs Skin General skin exam: other ( warm) Extrem General: No clubbing, No cyanosis and No edema Assessment & Plan Assessment & Plan (1) MIKAYLA (obstructive sleep apnea): Code(s): G47.33 - Obstructive sleep apnea (adult) (pediatric) Category: Medical Plan: Results of sleep study reviewed, patient does not have underlying obstructive sleep apnea, but nocturnal hypoxia. Patient to start using supplemental oxygen at night at 2 L continuous flow. (2) COPD (chronic obstructive pulmonary disease): Code(s): J44.9 - Chronic obstructive pulmonary disease, unspecified Category: Medical Qualifiers: COPD type: chronic bronchitis Chronic bronchitis type: unspecified Qualified Code(s): J42 - Unspecified chronic bronchitis Plan: Suboptimal control as patient has been using her BrezTri sporadically. Patient has been encouraged to use her BrezTri on regular basis. Continue albuterol MDI. (3) Supplemental oxygen dependent: Code(s): Z99.81 - Dependence on supplemental oxygen Category: Medical Plan: Continue supplemental oxygen to maintain O2 saturation of 88-92%. Medications: New albuterol sulfate 90 mcg/actuation 2 puffs inhalation Q4-6H PRN 1 ea 6RF shortness of breath or wheezing Coding Level of Care Code Est Pt Level 4 (14843) Diagnoses MIKAYLA (obstructive sleep apnea) G47.33 Chronic bronchitis, unspecified chronic bronchitis type J42 COPD type: chronic bronchitis Chronic bronchitis type: unspecified Supplemental oxygen dependent Z99.81
== END 2023-10-16 11:49 | disposition home or self-care (01) ==
PROVIDERS: PCP Physician Assistant; Visit Provider Internal Medicine Pulmonary Disease
DX: G47.33 Obstructive sleep apnea (adult) (pediatric) (principal); J42 Unspecified chronic bronchitis; Z99.81 Dependence on supplemental oxygen
CPT/HCPCS: 99214

== ENCOUNTER → 2023-10-16 11:23 | Outpatient (BNVA) | payer MEDICARE, SELFPAY | PROVIDERS: PCP Physician Assistant; Visit Provider Internal Medicine Pulmonary Disease | DX: J44.9 Chronic obstructive pulmonary disease, unspecified (principal); G47.33 Obstructive sleep apnea (adult) (pediatric); Z87.891 Personal history of nicotine dependence; Z99.81 Dependence on supplemental oxygen | CPT/HCPCS: 99212 ==

== ENCOUNTER 2023-12-26 11:51 | Outpatient (AMB) | payer MEDICARE, SELFPAY ==
--- NOTE | 2023-12-26 11:52 | A.OFFPC_ITS ---
Vital Signs 12/26/23 11:58 Height 4 ft 10.27 in Weight 165 lb 6 oz BMI 34.2 BP 130/58 L Blood Pressure Location Rt brachial Position Sitting Pulse 90 Pulse Source Pulse Oximeter Pulse Oximetry (%) 89 L Oxygen Delivery Method Room Air Intake Visit Reasons: f/u HTN/ HLD Core Analysis Operator Required: No Accompanied by: Self / Same As Patient Allergies morphine Allergy (Unknown, Verified 12/26/23 12:24) Unknown Medication List - Last Reconciled 12/26/23 by Carlos Cosby PA-C acetaminophen ER 650 mg PO Q8H PRN albuterol sulfate 90 mcg/actuation 2 puffs inhalation Q4-6H PRN alendronate (Fosamax) 70 mg PO QWEEK 12 weeks bisacodyl (Dulcolax (bisacodyl)) 10 mg (2 x 5 mg) PO ONCE 1 day blood pressure monitor As directed blood pressure test kit-medium As directed Breztri Aerosphere 160-9-4.8 mcg/actuation ([id number]) 2 inhalations inhalation BID 30 days NS ibuprofen 600 mg PO TID PRN 30 days lisinopril 20 mg PO DAILY 90 days loperamide 2 mg PO Q8H 30 days magnesium oxide 400 mg PO DAILY 90 days sertraline 50 mg PO DAILY 90 days Tobacco use date assessed: 05/31/23 Fall risk assessment: No Falls in past year Last assessed Fall Risk: 12/26/23 Dental Screening Dental Screen Date: 05/31/23 HPI f/u HTN/ HLD HPI Details Patient is a 68-year-old female here today for follow-up visit.? Patient's past medical history significant for hypertension, bilateral shoulder pain, COPD, lumbar Radiculopathy, obesity. Concern--> reports falling 2 weeks ago landing on her left side. She reports some moderate to severe pain at times over her shoulder blade, upper back radiating down into her left hip and lateral left thigh. She has not really used any Tylenol or ibuprofen for her pain. Of note she does have osteoporosis thus will send for x-rays of her affected areas to rule out any fractures. .. Hypertension:? Patient's blood pressure acceptable today in office. Patient continues on lisinopril hydrochlorothiazide with good effect. .. COPD:? Was a former smoker.? Patient has followed up with pulmonology and was started on an oral and supplemental oxygen.? 6 minute walking test showed hypoxemia and need for supplemental oxygen.? Has been started on maintenance inhaler and feels her breathing has been much improved. ? Has not been able to wear her supplemental oxygen due to still working in her O2 canister is too large.? Does use supplemental oxygen at home. Has recently seen her manager environmental health order smaller oxygen canisters. [facility] Medical History Personal history of nicotine dependence Fatigue Back pain Osteoporosis (~2015) Supplemental oxygen dependent PMR (polymyalgia rheumatica) HTN (hypertension) COPD (chronic obstructive pulmonary disease) Knee osteoarthritis Lumbar radiculopathy, chronic Obesity (BMI 30-39.9) Anxiety Surgical History History of kyphoplasty (~2016) History of tubal ligation Family History Father Heart disease Diabetes mellitus Mother Stroke Social History Housing: House Alcohol intake: never Patient Tobacco Use Status: Former Tobacco user (2019) Tobacco use type: Cigarette e-Cigarette/Vaping Use: Never Used Second Hand Smoke Exposure: No service: No Current occupational status: employed Cognitive needs: No Hearing needs: No Vision needs: No Questionnaire Thrive Questionnaire Date Thrive assessed: 05/31/23 FANG-7 AMB Questionnaire FANG-7 Date FANG - 7 assessed: 05/31/23 Source: Developed by Drs. Lester Pompa, Angeli Huerta, Colin Hugo and colleagues, with an educational grupo from [employer]. Review of Systems Const Denies headache(s) Eyes Denies loss of vision ENT Denies vertigo, Denies dizziness, Denies headache(s) and Denies sore throat Card Denies chest pain, Denies leg edema and Denies lightheadedness Resp Denies cough, Denies hemoptysis and Denies wheezing GI Denies abdominal pain, Denies melena, Denies constipation, Denies diarrhea and Denies vomiting Denies urinary frequency, Denies dysuria and Denies urinary urgency Musc Details: + LEFT FLANK PAIN Reports back pain, Denies arthralgias, Denies joint swelling, Denies numbness and Denies tingling Neuro Denies Abnormal speech present, Denies behavioral changes, Denies vertigo, Denies dizziness, Denies headache(s), Denies loss of vision, Denies memory loss, Denies numbness and Denies tingling Psych Denies anxiety, Denies behavioral changes, Denies depression, Denies memory loss and Denies panic attacks Herberth/Lymph Denies easy bleeding and Denies easy bruising Aller/Immun Denies wheezing Physical exam (Primary Care) Vital Signs: Last Vital Signs Pulse 90 12/26/23 11:58 BP 130/58 L 12/26/23 11:58 Pulse Ox 89 L 12/26/23 11:58 Oxygen Delivery Method Room Air 12/26/23 11:58 BMI result Body Mass Index 34.2 Tobacco/Smoking Status: Tobacco use Status Tobacco use date assessed 05/31/23 12/26/23 11:53 Patient Tobacco Use Status Former Tobacco user (2019) 12/26/23 11:53 Tobacco use type Cigarette 12/26/23 11:53 e-Cigarette/Vaping Use Never Used 12/26/23 11:53 Thrive Assessment: Date of Thrive Assessment Date Thrive assessed 05/31/23 12/26/23 11:53 Const General: healthy appearing, no acute distress, alert and awake Nutritional Appearance: well nourished Orientation/consciousness: oriented to person, oriented to place and oriented to time HENMT Ears: TM's normal bilaterally General nose exam: Normal nasal mucous membranes and turbinates present Eyes Conjunctivae: conjunctivae normal Sclerae: sclerae normal Pupils: Equal, round and reactive pupils present Neck Neck: Yes no lymphadenopathy and Yes no JVD Thyroid: Thyroid normal Carotids: no bruits Resp Effort & Inspection: normal respiratory effort and not tachypneic Auscultation: no crackles, no rales, no rhonchi and no wheezes Cardio Rate: regular rate Rhythm: regular rhythm Heart sounds: no murmurs and normal S1 and S2 GI Palpation (GI): Soft to palpation, nontender, no hepatomegaly and no splenomegaly Auscultation: normal bowel sounds Skin General skin exam: no rashes or lesions noted and dry skin Neuro General: oriented to person, oriented to place and oriented to time Cranial nerves: Yes Equal, round and reactive pupils present Speech: No Abnormal speech present Gait exam (Neuro): Normal gait present Motor exam (neuro): no tremor noted Extrem Right upper extremity: full ROM Left upper extremity: full ROM Right lower extremity: full ROM; no edema Left lower extremity: full ROM; no edema Psych Mental Status: mental status grossly normal Speech and movement: Normal speech and movement present Affect: normal affect Attitude: cooperative Thought process: Normal thought process present Assessment and Plan Assessment & Plan (1) Left hip pain: Code(s): M25.552 - Pain in left hip Plan: As per HPI patient fell and injured her left side including her hip and left upper torso region. (2) Greater trochanteric bursitis of left hip: Code(s): M70.62 - Trochanteric bursitis, left hip Plan: Patient does report some localize lateral hip pain which radiates down lateral left thigh. Symptoms most consistent with a greater trochanteric bursitis. We did discuss options of treatment though patient is not interested in physical therapy. Will try an anti-inflammatory and cool compress. (3) HTN (hypertension): Code(s): I10 - Essential (primary) hypertension Qualifiers: Hypertension type: primary hypertension Qualified Code(s): I10 - Essential (primary) hypertension Plan: Patient's blood pressure acceptable today in office. Will continue current dose of lisinopril.. Will discontinue hydrochlorothiazide to see if symptoms improve. Blood pressures to remain below 140/90 (4) COPD (chronic obstructive pulmonary disease): Code(s): J44.9 - Chronic obstructive pulmonary disease, unspecified Qualifiers: COPD type: chronic bronchitis Chronic bronchitis type: unspecified Qualified Code(s): J42 - Unspecified chronic bronchitis Plan: Patient has stop smoking. Is followed by pulmonology. Patient does desaturate upon exertion. She does use home supplemental oxygen. Continues on maintenance inhaler and only p.r.n. use of her albuterol inhaler. Patient denies any recent exacerbations in her COPD. (5) HLD (hyperlipidemia): Code(s): E78.5 - Hyperlipidemia, unspecified Qualifiers: Hyperlipidemia type: mixed hyperlipidemia Qualified Code(s): E78.2 - Mixed hyperlipidemia Plan: Patient's most recent lipid panel showing elevated total cholesterol and LDL. She will try to make dietary modifications in her diet and will recheck lipid panel before next visit. If cholesterol remains elevated will consider low-dose statin therapy. (6) Lumbar back pain: Code(s): M54.50 - Low back pain, unspecified Plan: Patient reports some lower back pain which seems to be a chronic issue though has been worsening since her fall 2 weeks ago. Will send for x-ray of her lower back to evaluate for any advanced arthritis or any fractures due to recent in jury. Will call with x-ray results Orders: Orders XR lumbar spine 4V min 12/26/23 M54.50 - Low back pain, unspecified XR hip LT 1V 12/26/23 M25.552 - Pain in left hip XR thoracic spine 3V 12/26/23 M54.6 - Pain in thoracic spine Medications: Refilled ibuprofen 600 mg PO TID 30 days PRN 90 tabs 1RF pain M77.8 - Other enthesopathies, not elsewhere classified Coding Level of Care Code Est Pt Level 4 (22633) Diagnoses Left hip pain M25.552 Greater trochanteric bursitis of left hip M70.62 Primary hypertension I10 Hypertension type: primary hypertension Chronic bronchitis, unspecified chronic bronchitis type J42 COPD type: chronic bronchitis Chronic bronchitis type: unspecified Mixed hyperlipidemia E78.2 Hyperlipidemia type: mixed hyperlipidemia Lumbar back pain M54.50
[2023-12-26 11:58] VITALS: BP 130/58; PULSE 90; O2SAT 89; BMI 34.2
== END 2023-12-26 12:36 | disposition home or self-care (01) ==
PROVIDERS: PCP Physician Assistant; Visit Provider Physician Assistant
DX: M25.552 Pain in left hip (principal); M70.62 Trochanteric bursitis, left hip; I10 Essential (primary) hypertension; J42 Unspecified chronic bronchitis; E78.2 Mixed hyperlipidemia; M54.50 Low back pain, unspecified

== ENCOUNTER → 2023-12-26 11:51 | Outpatient (BNVA) | payer MEDICARE, SELFPAY | PROVIDERS: PCP Physician Assistant; Visit Provider Physician Assistant | DX: M25.552 Pain in left hip (principal); I10 Essential (primary) hypertension; M70.62 Trochanteric bursitis, left hip; J42 Unspecified chronic bronchitis; E78.2 Mixed hyperlipidemia; M54.50 Low back pain, unspecified | CPT/HCPCS: 99212 ==

== ENCOUNTER 2024-01-03 12:02 | Outpatient (REF) | payer MEDICARE, SELFPAY ==
--- NOTE | ~2024-01-03 | XR_ITS ---
EXAMINATION: XR LUMBOSACRAL SPINE CLINICAL INFORMATION: M54.50 - Low back pain, unspecified COMPARISON: No relevant prior. TECHNIQUE: AP, lateral, coned-down lateral, and both oblique views of the lumbosacral spine. FINDINGS: There is diffuse osteopenia. No fracture, dislocation, or focal suspicious bony abnormality. Kyphoplasty cement redemonstrated in T8, T9, and T12. Chronic appearing mild inferior endplate compression deformity of T10. Minimal superior endplate concavity of L2. No additional compression deformities. No scoliosis. Normal lordosis. Normal alignment. No subluxations. Oblique views demonstrate no evidence of pars defects. Mild to moderate multilevel degenerative disc changes present. Moderate facet degeneration and hypertrophy spanning L3-S1. Soft tissues demonstrate vascular calcifications. XR/XR lumbar spine 4V min IMPRESSION: 1. No acute bony abnormalities of the lumbar spine. 2. Osteopenia with mild to moderate degenerative changes. No subluxations. 3. Minimal superior endplate concavity of L2, chronic appearance. 4. Mild inferior endplate concavity of T10, chronic appearance. 5. Vertebroplasty cement in T8, T9, and T12. Electronically signed by: Rohan Bowman MD 03/11/2024 03:56 PM [facility]
--- NOTE | ~2024-01-03 | XR_ITS ---
EXAMINATION: XR HIP, LEFT CLINICAL INFORMATION: M25.552 - Pain in left hip COMPARISON: None available. TECHNIQUE: Two views of the left hip. FINDINGS: No fracture. Alignment is anatomic. Hip joint space is maintained. Normal femoral head contour. Soft tissues demonstrate vascular calcifications but are otherwise normal. XR/XR hip LT min 2V IMPRESSION: Normal left hip. Electronically signed by: Rohan Bowman MD 03/11/2024 03:45 PM [facility]
--- NOTE | ~2024-01-03 | XR_ITS ---
EXAMINATION: XR THORACIC SPINE CLINICAL INFORMATION: M54.6 - Pain in thoracic spine COMPARISON: 11/25/2021. TECHNIQUE: 3 views of the thoracic spine were obtained. FINDINGS: Diffuse osteopenia. There is no scoliosis. There is a mildly exaggerated thoracic kyphosis. Vertebroplasties noted T8, T9, and T12. Mild compression deformity inferior endplate T10, stable. No additional compression seen. Alignment is anatomic. Mild to moderate diffuse disc degeneration and mild facet degeneration. Imaged lungs and soft tissues appear normal. XR/XR thoracic spine 3V IMPRESSION: 1. No acute findings in the thoracic spine. 2. Osteopenia with vertebroplasty cement present in T8, T9, and T12. 3. Mild inferior endplate compression deformity T10, unchanged. No new compression seen. 4. Degenerative changes. Electronically signed by: Rohan Bowman MD 03/11/2024 03:51 PM [facility]
== END 2024-01-03 12:03 | disposition home or self-care (01) ==
LOC: HO.XRAY 12:02
PROVIDERS: PCP Physician Assistant; Visit Provider Physician Assistant
DX: M54.50 Low back pain, unspecified (principal); M25.552 Pain in left hip; M54.6 Pain in thoracic spine
CPT/HCPCS: 72072; 72110; 73502

== ENCOUNTER → 2024-01-03 12:07 | Outpatient (BNV) | payer MEDICARE, SELFPAY | PROVIDERS: PCP Physician Assistant; Visit Provider Radiology Diagnostic Radiology | DX: M54.50 Low back pain, unspecified (principal); M54.6 Pain in thoracic spine; M25.552 Pain in left hip | CPT/HCPCS: 72072; 72110; 73502 ==

== ENCOUNTER 2024-01-05 09:44 | Outpatient (REF) | payer MEDICARE, SELFPAY ==
[2024-01-05 10:48] LABS: Hematocrit 38.5 % (37.0-47.0); Hemoglobin 12.3 g/dl (12.0-16.0); Mean Corpuscular HGB Conc 31.9 g/dl (31.0-35.0); Mean Corpuscular Hemoglobin 31.5 pg (27.0-33.0); Mean Corpuscular Volume 98.5 fL (80.0-98.0); Mean Platelet Volume 10.4 fL (9.4-12.3); Platelet Count 157 X10*3/uL (160-400); Red Blood Count 3.91 X10*6/uL (4.20-5.50); Red Cell Distribution Width 12.5 % (11.0-16.0); White Blood Count 6.4 X10*3/uL (4.8-10.8)
[2024-01-05 11:14] LABS: Alanine Aminotransferase 11 U/L (0-31); Albumin Level 4.1 g/dL (3.5-5.0); Alkaline Phosphatase 96 U/L (39-117); Anion Gap 12 (12-20); Aspartate Amino Transferase 21 U/L (5-31); Bilirubin Total 0.3 mg/dL (0.0-1.0); Blood Urea Nitrogen 30 mg/dL (9-16); Calcium 9.7 mg/dL (8.4-10.2); Carbon Dioxide 22 mmol/L (22-29); Chloride 114 mmol/L (96-108); Cholesterol 227 mg/dL (<200); Estimated Glomerular Filt Rate 52; Glucose Fasting 105 mg/dL (60-99); HDL Cholesterol 44 mg/dL (>40); LDL Cholesterol Calculated 135 mg/dL (<100); Sodium 142 mmol/L (135-145); Total Protein 7.2 g/dL (6.5-8.0); Triglycerides 242 mg/dL (<150)
[2024-01-05 11:22] LABS: Potassium 6.1 mmol/L (3.3-5.1)
== END 2024-01-05 09:45 | disposition home or self-care (01) ==
LOC: HO.LAB 09:44
PROVIDERS: PCP Physician Assistant; Visit Provider Physician Assistant
DX: E78.9 Disorder of lipoprotein metabolism, unspecified (principal)
CPT/HCPCS: 36415; 80053; 80061; 85027

== ENCOUNTER 2024-01-16 11:20 | Outpatient (AMB) | payer MEDICARE, SELFPAY ==
[2024-01-16 11:24] VITALS: BP 132/60; PULSE 92; O2SAT 91; BMI 34.2
--- NOTE | 2024-01-16 11:24 | A.OFFVIS_ITS ---
Vital Signs 01/16/24 11:24 Height 4 ft 10.27 in Weight 165 lb BMI 34.2 BP 132/60 Blood Pressure Location Lt brachial Position Sitting Pulse 92 Pulse Source Doppler Pulse Oximetry (%) 91 L Oxygen Delivery Method Room Air Intake Visit Reasons: Hypoxia Allergies morphine Allergy (Unknown, Verified 12/26/23 12:24) Unknown HPI HPI Hypoxia: Details: 68-year-old lady, active 30+ pack-year smoker with underlying severe COPD supplemental oxygen 2-3 L dependent.? Patient previously used BrezTri and albuterol MDI with reasonable control of her symptoms, however she recently has ran out of BrezTri in her symptoms are no longer well controlled. She denies any recent exacerbations. She does complain that she can not use via oxygen tanks, they are too heavy for her. She has completed her sleep study that showed no underlying obstructive sleep apnea, but significant nocturnal hypoxia. [facility] Medical History Personal history of nicotine dependence Fatigue Back pain Osteoporosis (~2015) Supplemental oxygen dependent PMR (polymyalgia rheumatica) HTN (hypertension) COPD (chronic obstructive pulmonary disease) Knee osteoarthritis Lumbar radiculopathy, chronic Obesity (BMI 30-39.9) Anxiety Surgical History History of kyphoplasty (~2016) History of tubal ligation Family History Father Heart disease Diabetes mellitus Mother Stroke Social History Housing: House Alcohol intake: never Patient Tobacco Use Status: Former Tobacco user (2019) Tobacco use type: Cigarette e-Cigarette/Vaping Use: Never Used Second Hand Smoke Exposure: No service: No Current occupational status: employed Cognitive needs: No Hearing needs: No Vision needs: No Review of Systems Const Denies daytime sleepiness, Denies excessive sweating, Denies fatigue, Denies fever(s), Denies lethargy, Denies malaise, Denies night sweats, Denies snoring and Denies weight loss Eyes Denies blurry vision and Denies itchy eyes ENT Denies nasal congestion, Denies post nasal drip, Denies sinus pain, Denies sinus pressure and Denies other ( Thrush) Card Denies chest pain, Denies pedal edema, Denies dyspnea, Denies orthopnea and Denies paroxysmal nocturnal dyspnea Resp Denies cough, Denies hemoptysis, Denies excessive phlegm production, Denies dyspnea, Denies snoring and Denies wheezing GI Denies abdominal pain and Denies heartburn Musc Denies myalgias, Denies arthralgias and Denies joint swelling Skin/Breast Denies rash Neuro Denies memory loss and Denies seizure-like activity Psych Denies abnormal sleep pattern, Denies anxiety and Denies memory loss Endo Denies excessive sweating, Denies fatigue and Denies heat intolerance Herberth/Lymph Denies easy bruising Aller/Immun Denies itchy eyes, Denies seasonal rhinorrhea and Denies wheezing Physical Exam Vital Signs: Last Vital Signs Pulse 92 01/16/24 11:24 BP 132/60 01/16/24 11:24 Pulse Ox 91 L 01/16/24 11:24 Oxygen Delivery Method Room Air 01/16/24 11:24 BMI result Body Mass Index 34.2 Const General: no acute distress and alert Nutritional Appearance: not obese Orientation/consciousness: Other orientation findings ( oriented) HEENT Head: Yes atraumatic Eyes General: appearance normal, both eyes and all related structures Sclerae: sclerae normal EOM: EOMs intact bilaterally Neck Neck: Yes supple Lymphatic: no lymphadenopathy noted Resp Effort & Inspection: normal respiratory effort and no use of accessory muscles Auscultation: clear to auscultation bilaterally Cardio Rate: regular rate Rhythm: regular rhythm Heart sounds: no gallops, no murmurs and no rubs Skin General skin exam: other ( warm) Extrem General: No clubbing, No cyanosis and No edema Assessment & Plan Assessment & Plan (1) COPD (chronic obstructive pulmonary disease): Code(s): J44.9 - Chronic obstructive pulmonary disease, unspecified Category: Medical Qualifiers: COPD type: chronic bronchitis Chronic bronchitis type: unspecified Qualified Code(s): J42 - Unspecified chronic bronchitis Plan: Restart BrezTri. Continue albuterol MDI. (2) Supplemental oxygen dependent: Code(s): Z99.81 - Dependence on supplemental oxygen Category: Medical Plan: Continue nocturnal supplemental oxygen to maintain O2 saturation above 88%. Will likely require repeat 6 minute walk test at next follow-up. Medications: Refilled Breztri Aerosphere 160-9-4.8 mcg/actuation ([id number]) 2 inhalations inhalation BID 10.7 grams 6RF 30 days NS Coding Level of Care Code Est Pt Level 4 (84552) Complex EM visit Add On G2211 Diagnoses Chronic bronchitis, unspecified chronic bronchitis type J42 COPD type: chronic bronchitis Chronic bronchitis type: unspecified Supplemental oxygen dependent Z99.81
== END 2024-01-16 11:55 | disposition home or self-care (01) ==
PROVIDERS: PCP Physician Assistant; Visit Provider Internal Medicine Pulmonary Disease
DX: J42 Unspecified chronic bronchitis (principal); Z99.81 Dependence on supplemental oxygen
CPT/HCPCS: 99214; G2211

== ENCOUNTER → 2024-01-16 11:20 | Outpatient (BNVA) | payer MEDICARE, SELFPAY | PROVIDERS: PCP Physician Assistant; Visit Provider Internal Medicine Pulmonary Disease | DX: R09.02 Hypoxemia (principal); J42 Unspecified chronic bronchitis; Z99.81 Dependence on supplemental oxygen | CPT/HCPCS: 99212 ==

== ENCOUNTER 2024-01-16 12:00 | Outpatient (REF) | payer MEDICARE, SELFPAY ==
[2024-01-16 14:09] LABS: Potassium 4.5 mmol/L (3.3-5.1)
== END 2024-01-16 12:01 | disposition home or self-care (01) ==
LOC: HO.LAB 12:00
PROVIDERS: PCP Physician Assistant; Visit Provider Physician Assistant
DX: E87.5 Hyperkalemia (principal)
CPT/HCPCS: 36415; 84132

== ENCOUNTER 2024-02-14 13:23 | Outpatient (AMB) | payer MEDICARE, SELFPAY ==
--- NOTE | 2024-02-14 13:33 | A.OFFVIS_ITS ---
Vital Signs 02/14/24 13:41 Height 4 ft 10.27 in Weight 165 lb BMI 34.2 BP 122/62 Blood Pressure Location Rt brachial Position Sitting Pulse 101 H Pulse Source Doppler Pulse Oximetry (%) 91 L Oxygen Delivery Method Room Air Intake Visit Reasons: Hypoxia Allergies morphine Allergy (Unknown, Verified 02/14/24 13:43) Unknown HPI HPI Hypoxia: Details: 68-year-old lady, active 30+ pack-year smoker with underlying severe COPD supplemental oxygen 2-3 L dependent, suboptimally compliant with oxygen therapy.? Patient previously used BrezTri and albuterol MDI with reasonable control of her symptoms, and no recent exacerbations. Patient wanted to have POC evaluation, which was performed during this office visit and showed that POC is insufficient for her underlying supplemental oxygen needs. [facility] Medical History Personal history of nicotine dependence Fatigue Back pain Osteoporosis (~2015) Supplemental oxygen dependent PMR (polymyalgia rheumatica) HTN (hypertension) COPD (chronic obstructive pulmonary disease) Knee osteoarthritis Lumbar radiculopathy, chronic Obesity (BMI 30-39.9) Anxiety Surgical History History of kyphoplasty (~2016) History of tubal ligation Family History Father Heart disease Diabetes mellitus Mother Stroke Social History Housing: House Alcohol intake: never Patient Tobacco Use Status: Former Tobacco user (2019) Tobacco use type: Cigarette e-Cigarette/Vaping Use: Never Used Second Hand Smoke Exposure: No service: No Current occupational status: employed Cognitive needs: No Hearing needs: No Vision needs: No Review of Systems Const Denies daytime sleepiness, Denies excessive sweating, Denies fatigue, Denies fever(s), Denies lethargy, Denies malaise, Denies night sweats, Denies snoring and Denies weight loss Eyes Denies blurry vision and Denies itchy eyes ENT Denies nasal congestion, Denies post nasal drip, Denies sinus pain, Denies sinus pressure and Denies other ( Thrush) Card Denies chest pain, Denies pedal edema, Denies dyspnea, Reports dyspnea on exertion, Denies orthopnea and Denies paroxysmal nocturnal dyspnea Resp Denies cough, Denies hemoptysis, Denies excessive phlegm production, Denies dyspnea, Reports dyspnea on exertion, Denies snoring and Denies wheezing GI Denies abdominal pain and Denies heartburn Musc Denies myalgias, Denies arthralgias and Denies joint swelling Skin/Breast Denies rash Neuro Denies memory loss and Denies seizure-like activity Psych Denies abnormal sleep pattern, Denies anxiety and Denies memory loss Endo Denies excessive sweating, Denies fatigue and Denies heat intolerance Herberth/Lymph Denies easy bruising Aller/Immun Denies itchy eyes, Denies seasonal rhinorrhea and Denies wheezing Physical Exam Vital Signs: Last Vital Signs Pulse 101 H 02/14/24 13:41 BP 122/62 02/14/24 13:41 Pulse Ox 91 L 02/14/24 13:41 Oxygen Delivery Method Room Air 02/14/24 13:41 BMI result Body Mass Index 34.2 Const General: no acute distress and alert Nutritional Appearance: obese Orientation/consciousness: Other orientation findings ( oriented) HEENT Head: Yes atraumatic Eyes General: appearance normal, both eyes and all related structures Sclerae: sclerae normal EOM: EOMs intact bilaterally Neck Neck: Yes supple Lymphatic: no lymphadenopathy noted Resp Effort & Inspection: normal respiratory effort and no use of accessory muscles Auscultation: clear to auscultation bilaterally Cardio Rate: regular rate Rhythm: regular rhythm Heart sounds: no gallops, no murmurs and no rubs Skin General skin exam: other ( warm) Extrem General: No clubbing, No cyanosis and No edema Assessment & Plan Assessment & Plan (1) COPD (chronic obstructive pulmonary disease): Code(s): J44.9 - Chronic obstructive pulmonary disease, unspecified Category: Medical Qualifiers: COPD type: chronic bronchitis Chronic bronchitis type: unspecified Qu alified Code(s): J42 - Unspecified chronic bronchitis Plan: Severe COPD suboptimally controlled as patient is suboptimally compliant with her supplemental oxygen. Patient has been encouraged to be more compliant with her supplemental oxygen. Continue baseline regimen of BrezTri and albuterol MDI. (2) Supplemental oxygen dependent: Code(s): Z99.81 - Dependence on supplemental oxygen Category: Medical Plan: POC evaluation performed. POC does not provide sufficient supplemental oxygen to maintain normal oximetry with exertion. Continue on 3 L of supplemental oxygen. B cylinders requested. Coding Level of Care Code Est Pt Level 4 (42668) Complex EM visit Add On G2211 Diagnoses Chronic bronchitis, unspecified chronic bronchitis type J42 COPD type: chronic bronchitis Chronic bronchitis type: unspecified Supplemental oxygen dependent Z99.81
[2024-02-14 13:41] VITALS: BP 122/62; PULSE 101; O2SAT 91; BMI 34.2
== END 2024-02-14 14:15 | disposition home or self-care (01) ==
LOC: HO.HPS 13:23
PROVIDERS: PCP Physician Assistant; Visit Provider Internal Medicine Pulmonary Disease
DX: J42 Unspecified chronic bronchitis (principal); Z99.81 Dependence on supplemental oxygen
CPT/HCPCS: 99214; G2211

== ENCOUNTER → 2024-02-14 13:23 | Outpatient (BNVA) | payer MEDICARE, SELFPAY | PROVIDERS: PCP Physician Assistant; Visit Provider Internal Medicine Pulmonary Disease | DX: J42 Unspecified chronic bronchitis (principal); R09.02 Hypoxemia; Z87.891 Personal history of nicotine dependence; Z99.81 Dependence on supplemental oxygen | CPT/HCPCS: 99212 ==

== ENCOUNTER 2024-03-21 11:23 | Outpatient (AMB) | payer MEDICARE, SELFPAY ==
--- NOTE | 2024-03-21 11:26 | A.OFFVIS_ITS ---
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 Reports recent fall in December and landed on her left side and had increased left shoulder pain and back pain with radiation into her left buttock and left leg pain. She was referred to our office by her PCP. Back pain is axial and also radiates into her left lower extremity in L5 distribution. She occasional experience right leg pain with tingling in L5-S1 distribution. Pain affects her daily activities and functioning, mobility, movements, sleep, caring for her disabled adult child at home, and quality of life. Pain increases with prolonged activities and especially with bending, lifting or cold. Denies previous spine surgery but reports having back injections over 20 years ago visit. SLR testing today significantly exacerbated her left radicular pain. Patient also became dyspneic with exertion during the back exam. She presented without oxygen today and had mild shows shortness of breath and coughing. Patient reports she left her O2 tank and walker in the car due to parking issues today. For pulse oximetry decreased to 86 and 97% on room air and she received supplemental O2 at 3 L via nasal cannula in the office with increased SaO2 to 92%. Patient has completed physical therapy for shoulder gait last year. Currently she can not pursue formal physical therapy due to doing in his charts significant low back pain, dyspnea on exertion and O2 dependency. Denies any fever or chills, abdominal or groin pain, bladder dysfunction or saddle anesthesia. Location: Lower back radiates down bilateral legs, left leg worse Duration: Chronic pain for many years, recent mechanical fall in December Characteristics of symptom or complaint: Aching, throbbing, shooting, radiating, spasming, cramping, N/T, burning Aggravating or associated factors: Prolonged standing, bending, walking, lifting Relieving factors: Tylenol extra-strength Treatment: Back injections >20 years ago, walker [facility] Medical History Personal history of nicotine dependence Fatigue Back pain Osteoporosis (~2015) Supplemental oxygen dependent PMR (polymyalgia rheumatica) HTN (hypertension) COPD (chronic obstructive pulmonary disease) Knee osteoarthritis Lumbar radiculopathy, chronic Obesity (BMI 30-39.9) Anxiety Surgical History History of kyphoplasty (~2016) History of tubal ligation Family History Father Heart disease Diabetes mellitus Mother Stroke Social History Housing: House Alcohol intake: never Patient Tobacco Use Status: Former Tobacco user (2019) Tobacco use type: Cigarette e-Cigarette/Vaping Use: Never Used Second Hand Smoke Exposure: No service: No Current occupational status: employed Cognitive needs: No Hearing needs: No Vision needs: No Review of Systems Const All systems reviewed & are unremarkable except as noted in HPI and below Reports as per HPI, Denies body aches, Denies chills, Reports difficulty sleeping, Denies fatigue, Denies fever(s), Reports frequent falls (December 2023), Denies malaise, Denies night sweats, Reports weakness (occasional LLE with pain) and Denies weight loss Neuro Reports frequent falls (December 2023) and Reports weakness (occasional LLE with pain) Endo Denies fatigue Physical Exam Vital Signs: Last Vital Signs Pulse 87 03/21/24 11:30 BP 135/81 03/21/24 11:30 Pulse Ox 99 03/21/24 11:30 Oxygen Delivery Method Room Air 03/21/24 11:30 BMI result Body Mass Index 33.5 General: Appears afebrile. Alert and oriented. Mood and affect appropriate. Follows and participates in conversation appropriately. Respiratory effort is unlabored. No cough. Able to transition from sit to stand unassisted. Ambulates with bilaterally normal heel strike and toe off, increased LLE with toe and heel standing. General: Yes no CVA tenderness Back/Spine/Pelvis Other: Limited thoracolumbar ROM due to pain. Antalgic gait with limping. Can flex forward to 65-70 degrees and extend to 5-10 degrees before experiencing lumbar pain. Demonstrates 5/5 right and 4/5 left strength of quadriceps bilaterally as well as flexion/dorsiflexion of bilateral feet against resistance. 2+ pedal pulses bilaterally. Seated straight leg rise with dorsiflexion positive on the left. +1 patellar and achilles reflexes bilaterally. Facet loading test positive bilaterally. Page sign, Esteban?s, Pelvic compression and Stinchfield tests are positive bilaterally, left>right. No groin pain with I/E hip rotations. Valsalva maneuver negative. Back: no CVA tenderness Cervical Spine: loss of normal cervical lordosis, cervical muscular tenderness, pain with cervical ROM and No Cervical spine tenderness Thoracic/Lumbar Spine: thoracic and lumbar spine normal to inspection, Tho racic/lumbar spine scar(s), Lasegue's sign positive on the left and localized, pain with thoraco-lumbar ROM, paraspinal muscle tenderness on the left greater than right, thoraco-lumbar ROM limited, No thoracic spinal tenderness and lumbar spinal tenderness (L4-S1) Pelvis: buttock tenderness on the left and sciatic notch tenderness on the left Sacroiliac joints: bilaterally tender to palpation Extrem General: Yes capillary refill normal, Yes no clubbing, cyanosis or edema and Yes no calf tenderness Results Reviewed Results Reviewed: XR LUMBOSACRAL SPINE 01/03/24 CLINICAL INFORMATION: M54.50 - Low back pain, unspecified FINDINGS: There is diffuse osteopenia. No fracture, dislocation, or focal suspicious bony abnormality. Kyphoplasty cement redemonstrated in T8, T9, and T12. Chronic appearing mild inferior endplate compression deformity of T10. Minimal superior endplate concavity of L2. No additional compression deformities. No scoliosis. Normal lordosis. Normal alignment. No subluxations. Oblique views demonstrate no evidence of pars defects. Mild to moderate multilevel degenerative disc changes present. Moderate facet degeneration and hypertrophy spanning L3-S1. Soft tissues demonstrate vascular calcifications. IMPRESSION: 1. No acute bony abnormalities of the lumbar spine. 2. Osteopenia with mild to moderate degenerative changes. No subluxations. 3. Minimal superior endplate concavity of L2, chronic appearance. 4. Mild inferior endplate concavity of T10, chronic appearance. 5. Vertebroplasty cement in T8, T9, and T12. XR THORACIC SPINE 01/03/24 CLINICAL INFORMATION: M54.6 - Pain in thoracic spine COMPARISON: 11/25/2021. FINDINGS: Diffuse osteopenia. There is no scoliosis. There is a mildly exaggerated thoracic kyphosis. Vertebroplasties noted T8, T9, and T12. Mild compression deformity inferior endplate T10, stable. No additional compression seen. Alignment is anatomic. Mild to moderate diffuse disc degeneration and mild facet degeneration. Imaged lungs and soft tissues appear normal. IMPRESSION: 1. No acute findings in the thoracic spine. 2. Osteopenia with vertebroplasty cement present in T8, T9, and T12. 3. Mild inferior endplate compression deformity T10, unchanged. No new compression seen. 4. Degenerative changes. Assessment & Plan Assessment & Plan (1) Lumbar back pain: Code(s): M54.50 - Low back pain, unspecified Category: Medical (2) Lumbosacral spondylosis: Code(s): M47.817 - Spondylosis without myelopathy or radiculopathy, lumbosacral region Category: Medical (3) Low back pain radiating to left lower extremity: Code(s): M54.50 - Low back pain, unspecified; M79.605 - Pain in left leg Category: Medical (4) Vertebrogenic low back pain: Code(s): M54.51 - Vertebrogenic low back pain Category: Medical Plan MRI of the lumbar spine to assess for neural integrity and compression and follow up on previous xray findings. Patient is unable to tolerate physical therapy at this time due to significant low back pain, dyspnea on exertion and oxygen dependence. Patient will return to the clinic to discuss results of the MRI findings when it is done and consider interventional therapy as indicated. Questions and concerns have been answered with the treatment plan. Follow-up for MRI results and sooner as needed. Orders: Orders MR lumbar spine wo con Today M47.817 - Spondylosis without myelopathy or radiculopathy, lumbosacral region, M54.50 - Low back pain, unspecified, M54.51 - Vertebrogenic low back pain, M79.605 - Pain in left leg Coding Level of Care Code New Pt Level 4 (32708) Complex EM visit Add On G2211 Diagnoses Lumbar back pain M54.50 Lumbosacral spondylosis M47.817 Low back pain radiating to left lower extremity M54.50; M79.605 Vertebrogenic low back pain M54.51
[2024-03-21 11:30] VITALS: BP 135/81; PULSE 87; O2SAT 99; BMI 33.5
[2024-03-21 11:50] VITALS: PULSE 93; RESP 24; O2SAT 86
[2024-03-21 11:51] VITALS: PULSE 88; RESP 20; O2SAT 92
== END 2024-03-21 12:05 | disposition home or self-care (01) ==
PROVIDERS: PCP Physician Assistant; Visit Provider Nurse Practitioner Family
DX: M54.50 Low back pain, unspecified (principal); M47.817 Spondylosis without myelopathy or radiculopathy, lumbosacral region; M79.605 Pain in left leg; M54.51 Vertebrogenic low back pain
CPT/HCPCS: 99204; G2211

== ENCOUNTER → 2024-03-21 11:23 | Outpatient (BNVA) | payer MEDICARE, SELFPAY | PROVIDERS: PCP Physician Assistant; Visit Provider Nurse Practitioner Family | DX: M81.0 Age-related osteoporosis without current pathological fracture (principal); M47.817 Spondylosis without myelopathy or radiculopathy, lumbosacral region; M79.605 Pain in left leg; M54.51 Vertebrogenic low back pain; M17.10 Unilateral primary osteoarthritis, unspecified knee; E66.9 Obesity, unspecified; Z68.33 Body mass index [BMI] 33.0-33.9, adult | CPT/HCPCS: 99202 ==

== ENCOUNTER 2024-03-27 11:12 | Outpatient (AMB) | payer MEDICARE, SELFPAY ==
--- NOTE | 2024-03-27 11:34 | MHC.PC.OV ---
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 Accompanied by: Self / Same As Patient Allergies morphine Allergy (Unknown, Verified 03/27/24 11:59) Unknown Medication List - Last Reconciled 03/27/24 by Carlos Cosby PA-C acetaminophen ER 650 mg PO Q8H PRN albuterol sulfate 90 mcg/actuation 2 puffs inhalation Q4-6H PRN alendronate (Fosamax) 70 mg PO QWEEK 12 weeks bisacodyl (Dulcolax (bisacodyl)) 10 mg (2 x 5 mg) PO ONCE 1 day blood pressure monitor As directed blood pressure test kit-medium As directed Breztri Aerosphere 160-9-4.8 mcg/actuation (vhmhdutqpc-cxajxceu-gvsrunthal) 2 inhalations inhalation BID 30 days NS lisinopril-hydrochlorothiazide 10-12.5 mg 1 tab PO DAILY loperamide 2 mg PO Q8H 30 days magnesium oxide 400 mg PO DAILY 90 days sertraline 50 mg PO DAILY 90 days sodium polystyrene sulfonate 30 grams PO DAILY 2 days Tobacco use date assessed: 05/31/23 Fall risk assessment: No Falls in past year Last assessed Fall Risk: 03/27/24 Dental Screening Dental Screen Date: 05/31/23 HPI f/u COPD/ HLD HPI Details Patient is a 68-year-old female here today for follow-up visit.? Patient's past medical history significant for hypertension, bilateral shoulder pain, COPD, lumbar Radiculopathy, obesity. Concern--> continues to have frequent loose stools on a daily basis. Has tried stool bulking agents such as Metamucil and also try loperamide though has not found any success. She has not lost any significant amount of weight or reports any significant abdominal pain. PLAN: Will try for a CT of the abdomen and pelvis to evaluate for colitis or enteritis. Consider Gastroenterology evaluation for colonoscopy. Lumbar spine pain: patient has followed up with [place] pain management for lower lumbar spine pain and will be getting MRI pretty soon for further evaluation. Of note has a history of compression fracture in her thoracic spine. She continues to have cervical and lower lumbar spine pain. She is interested in trying a muscle relaxer to help her with her pain as well. .. Hypertension:? Patient's blood pressure acceptable today in office. Patient continues on lisinopril hydrochlorothiazide with good effect. .. COPD:? Was a former smoker.? Patient has followed up with pulmonology and was started on an oral and supplemental oxygen.? 6 minute walking test showed hypoxemia and need for supplemental oxygen.? Has been started on maintenance inhaler and feels her breathing has been much improved. ? Has not been able to wear her supplemental oxygen due to still working in her O2 canister is too large.? Does use supplemental oxygen at home. 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 [facility] Medical History Personal history of nicotine dependence Fatigue Back pain Osteoporosis (~2015) Supplemental oxygen dependent PMR (polymyalgia rheumatica) HTN (hypertension) COPD (chronic obstructive pulmonary disease) Knee osteoarthritis Lumbar radiculopathy, chronic Obesity (BMI 30-39.9) Anxiety Surgical History History of kyphoplasty (~2017) History of tubal ligation Family History Father Heart disease Diabetes mellitus Mother Stroke Social History Housing: House Alcohol intake: never Patient Tobacco Use Status: Former Tobacco user (2019) Tobacco use type: Cigarette e-Cigarette/Vaping Use: Never Used Second Hand Smoke Exposure: No service: No Current occupational status: employed Cognitive needs: No Hearing needs: No Vision needs: No Questionnaire Thrive Questionnaire Date Thrive assessed: 05/31/23 FANG-7 AMB Questionnaire FANG-7 Date FANG - 7 assessed: 05/31/23 Source: Developed by Drs. Lester Pompa, Angeli Huerta, Colin Hugo and colleagues, with an educational grupo from [employer]. Review of Systems Const Denies headache(s) Eyes Denies loss of vision ENT Denies vertigo, Denies dizziness, Denies headache(s) and Denies sore throat Card Denies chest pain, Denies leg edema and Denies lightheadedness Resp Denies cough, Denies hemoptysis and Denies wheezing GI Reports diarrhea and Reports loose stools Denies urinary frequency, Denies dysuria and Denies urinary urgency Musc Denies arthralgias, Denies joint swelling, Denies numbness and Denies tingling Neuro Denies Abnormal speech present, Denies behavioral changes, Denies vertigo, Denies dizziness, Denies headache(s), Denies loss of vision, Denies memory loss, Denies numbness and Denies tingling Psych Denies anxiety, Denies behavioral changes, Denies depression, Denies memory loss and Denies panic attacks Herberth/Lymph Denies easy bleeding and Denies easy bruising Aller/Immun Denies wheezing Physical exam (Primary Care) Vital Signs: Last Vital Signs Pulse 91 03/27/24 11:35 BP 130/72 03/27/24 11:35 Pulse Ox 91 L 03/27/24 11:35 BMI result Body Mass Index 33.7 Tobacco/Smoking Status: Tobacco use Status Tobacco use date assessed 05/31/23 03/27/24 11:39 Patient Tobacco Use Status Former Tobacco user (2019) 03/27/24 11:39 Tobacco use type Cigarette 03/27/24 11:39 e-Cigarette/Vaping Use Never Used 03/27/24 11:39 Thrive Assessment: Date of Thrive Assessment Date Thrive assessed 05/31/23 03/27/24 11:39 Const General: healthy appearing, no acute distress, alert and awake Nutritional Appearance: well nourished Orientation/consciousness: oriented to person, oriented to place and oriented to time [facility] Ears: TM's normal bilaterally General nose exam: Normal nasal mucous membranes and turbinates present Eyes Conjunctivae: conjunctivae normal Sclerae: sclerae normal Pupils: Equal, round and reactive pupils present Neck Neck: Yes no lymphadenopathy and Yes no JVD Thyroid: Thyroid normal Carotids: no bruits Resp Effort & Inspection: normal respiratory effort and not tachypneic Auscultation: no crackles, no rales, no rhonchi and no wheezes Cardio Rate: regular rate Rhythm: regular rhythm Heart sounds: no murmurs and normal S1 and S2 GI Palpation (GI): Soft to palpation, nontender, no hepatomegaly and no splenomegaly Auscultation: normal bowel sounds Skin General skin exam: no rashes or lesions noted and dry skin Neuro General: oriented to person, oriented to place and oriented to time Cranial nerves: Yes Equal, round and reactive pupils present Speech: No Abnormal speech present Gait exam (Neuro): Normal gait present Motor exam (neuro): no tremor noted Extrem Right upper extremity: full ROM Left upper extremity: full ROM Right lower extremity: full ROM; no edema Left lower extremity: full ROM; no edema Psych Mental Status: mental status grossly normal Speech and movement: Normal speech and movement present Affect: normal affect Attitude: cooperative Thought process: Normal thought process present Coding Level of Care Code Est Pt Level 4 (55737) Diagnoses Chronic bronchitis, unspecified chronic bronchitis type J42 COPD type: chronic bronchitis Chronic bronchitis type: unspecified Low back pain radiating to left lower extremity M54.50; M79.605 Chronic diarrhea K52.9 Class 1 obesity E66.811 Assessment & Plan Assessment & Plan (1) COPD (chronic obstructive pulmonary disease): Code(s): J44.9 - Chronic obstructive pulmonary disease, unspecified Category: Medical Qualifiers: COPD type: chronic bronchitis Chronic bronchitis type: unspecified Qualified Code(s): J42 - Unspecified chronic bronchitis Plan: Patient followed by pulmonology and continues on maintenance inhalers. She is on so on O2 continuously throughout the day to which she is looking for a smaller oxygen canisters so that she can be more mobile. (2) Low back pain radiating to left lower extremity: Code(s): M54.50 - Low back pain, unspecified; M79.605 - Pain in left leg Category: Medical Plan: As per HPI patient followed by pain management here in [facility]. She is due for an MRI of the lumbar spine as she has been having bilateral lower extremity radicular symptoms. (3) Chronic diarrhea: Code(s): K52.9 - Noninfective gastroenteritis and colitis, unspecified Category: Medical Plan: As per HPI try for CT of abdomen pelvis due to the chronicity of her loose stools and diarrhea. (4) Class 1 obesity: Code(s): E66.811 - Obesity, class 1 Category: Medical Plan: Patient reports she has been having difficulty losing weight and would like to try medication to help her lose weight. She has not been able to be physically active due to her chronic lumbar spine pain. She is willing to try a GLP 1 to help her lose weight. We did discuss the possible GI side effects Orders: Orders CT abdomen pelvis wo/w IV con Today K52.9 - Noninfective gastroenteritis and colitis, unspecified Transglutaminase IgA Today K52.9 - Noninfective gastroenteritis and colitis, unspecified, R14.0 - Abdominal distension (gaseous) Transglutaminase Ab IgG Today K52.9 - Noninfective gastroenteritis and colitis, unspecified, R14.0 - Abdominal distension (gaseous) Endomysial IgA rflx Titer Today K52.9 - Noninfective gastroenteritis and colitis, unspecified, R14.0 - Abdominal distension (gaseous) Medications: New baclofen 10 mg PO BEDTIME 30 tabs 1RF 30 days M47.817 - Spondylosis without myelopathy or radiculopathy, lumbosacral region semaglutide (weight loss) ([place]) administer weeks 1 through 4 of therapy 0.25 mg (0.5 mL) subcut QWEEK 2 mL 0RF 4 weeks E66.811 - Obesity, class 1 Refilled albuterol sulfate 90 mcg/actuation 2 puffs inhalation Q4-6H PRN 1 ea 6RF shortness of breath or wheezing lisinopril-hydrochlorothiazide 10-12.5 mg 1 tab PO DAILY 90 tabs 0RF magnesium oxide 400 mg PO DAILY 90 tabs 1RF 90 days M79.18 - Myalgia, other site sertraline 50 mg PO DAILY 90 caps 2RF 90 days F41.9 - Anxiety disorder, unspecified Discontinued loperamide Discontinued Reason: Doctor's Order 2 mg PO Q8H 30 days 90 caps 0RF loose stool R19.7 - Diarrhea, unspecified
[2024-03-27 11:35] VITALS: BP 130/72; PULSE 91; O2SAT 91; BMI 33.7
== END 2024-03-27 12:16 | disposition home or self-care (01) ==
PROVIDERS: PCP Physician Assistant; Visit Provider Physician Assistant
DX: J42 Unspecified chronic bronchitis (principal); M54.50 Low back pain, unspecified; E66.811 Obesity, class 1; Z68.33 Body mass index [BMI] 33.0-33.9, adult; M79.605 Pain in left leg; K52.9 Noninfective gastroenteritis and colitis, unspecified

== ENCOUNTER → 2024-03-27 11:12 | Outpatient (BNVA) | payer MEDICARE, SELFPAY | PROVIDERS: PCP Physician Assistant; Visit Provider Physician Assistant | DX: J42 Unspecified chronic bronchitis (principal); M79.605 Pain in left leg; M54.50 Low back pain, unspecified; K52.9 Noninfective gastroenteritis and colitis, unspecified; E66.811 Obesity, class 1 | CPT/HCPCS: 99212 ==

== ENCOUNTER 2024-04-07 10:44 | Outpatient (REF) | payer MEDICARE, SELFPAY | END 2024-04-07 10:45 | disposition home or self-care (01) | LOC: HO.MAMMO 10:44 | PROVIDERS: PCP Physician Assistant; Visit Provider Physician Assistant | DX: Z12.31 Encounter for screening mammogram for malignant neoplasm of breast (principal) | CPT/HCPCS: 77063; 77067 ==

== ENCOUNTER → 2024-04-07 10:45 | Outpatient (BNV) | payer MEDICARE, SELFPAY | PROVIDERS: PCP Physician Assistant; Visit Provider Internal Medicine | DX: Z12.31 Encounter for screening mammogram for malignant neoplasm of breast (principal) | CPT/HCPCS: 77063; 77067 ==

== ENCOUNTER 2024-05-24 10:06 | Outpatient (REF) | payer MEDICARE, SELFPAY ==
[2024-05-24 11:03] LABS: Anion Gap 14 (12-20); Blood Urea Nitrogen 31 mg/dL (9-16); Calcium 9.8 mg/dL (8.4-10.2); Carbon Dioxide 24 mmol/L (22-29); Chloride 110 mmol/L (96-108); Estimated Glomerular Filt Rate 49; Glucose Random 103 mg/dL (60-115); Potassium 5.2 mmol/L (3.3-5.1); Sodium 143 mmol/L (135-145)
[2024-05-27 22:42] LABS: Transglutaminase Ab IgG <1.0 U/mL
[2024-05-28 22:14] LABS: Endomysial IgA Antibody Negative (Negative)
== END 2024-05-24 10:07 | disposition home or self-care (01) ==
LOC: HO.LAB 10:06
PROVIDERS: PCP Physician Assistant; Visit Provider Physician Assistant
DX: Z13.89 Encounter for screening for other disorder (principal)
CPT/HCPCS: 36415; 80048; 86231; 86364

== ENCOUNTER → 2024-05-24 11:04 | Outpatient (BNV) | payer MEDICARE, SELFPAY | PROVIDERS: PCP Physician Assistant; Visit Provider Radiology Vascular & Interventional Radiology | DX: M54.50 Low back pain, unspecified (principal) | CPT/HCPCS: 72148 ==

== ENCOUNTER 2024-05-24 11:09 | Outpatient (REF) | payer MEDICARE, SELFPAY ==
--- NOTE | ~2024-05-24 | MR_ITS ---
CLINICAL HISTORY: M54.50 - Low back pain, unspecified MR lumbar spine without gadolinium Comparison: None Findings: Compression fracture at T12 with kyphoplasty cement. No acute compression fracture or acute malalignment. Minimal anterolisthesis of L4 with respect to L5. The conus terminates normally at L1. Cauda equina are unremarkable. Paravertebral soft tissues are within normal limits. Retroperitoneal structures demonstrate multiple renal cysts. Individual levels: L1-L2: Unremarkable. L2-L3: Unremarkable. L3-L4: No central canal stenosis or neural foraminal narrowing. Minimal facet hypertrophy. L4-L5: Minimal left neural foraminal narrowing. No central canal stenosis. L5-S1: Minimal bilateral neural foraminal narrowing. Impression: Old compression fracture at T12. Mild degenerative changes. No acute process. This document has been electronically signed by: Zane Rogers MD on 05/24/2024 13:23:29
== END 2024-05-24 11:10 | disposition home or self-care (01) ==
LOC: HO.MRI 11:09
PROVIDERS: PCP Physician Assistant; Visit Provider Nurse Practitioner Family
DX: M54.50 Low back pain, unspecified (principal); M47.817 Spondylosis without myelopathy or radiculopathy, lumbosacral region; M79.605 Pain in left leg; M54.51 Vertebrogenic low back pain
CPT/HCPCS: 36415; 72148; 80048; 86231; 86364

== ENCOUNTER 2024-05-27 09:44 | Outpatient (REF) | payer MEDICARE, SELFPAY ==
--- NOTE | ~2024-05-27 | CT_ITS ---
CLINICAL HISTORY: K52.9 - Noninfective gastroenteritis and colitis, unspecified CT abdomen and pelvis with contrast Comparison: None Findings: No consolidation or effusion. Several simple right renal cysts are seen measuring up to 2.5 cm. 3.9 cm simple left renal cyst is also noted. Additional subcentimeter hypodensities in bilateral kidneys are too small to characterize. The liver, gallbladder, pancreas, spleen, and bilateral adrenal glands appear within normal limits. Colonic diverticulosis is present without evidence of diverticulitis. There is no evidence of bowel obstruction. The appendix appears normal. There is no pneumoperitoneum or ascites. The urinary bladder is partially distended. There is no adenopathy. Remote T9 and T12 compression fractures are present with evidence of prior vertebroplasty. Remote T10 compression fracture deformity is also noted. No acute osseous abnormality is identified. No aggressive lytic or blastic lesion is seen. IMPRESSION: 1. No acute cardiopulmonary abnormality. 2. Colonic diverticulosis without evidence of diverticulitis. This document has been electronically signed by: Saqib Castellanos on 05/28/2024 09:27:01
--- OUTSIDE RECORDS SUMMARY | 2024-05-27 10:31 | XMS_ITS | Clinical Summary ---
Author Organization [facility] Address [address] [place] [address] Care Team Providers Care Compliance Engineer Products Name Role Phone Carlos Cosby Primary Care Provider [phone]- [phone] Allergies No known active allergies Medications Medication Sig Dispensed Refills Start Date End Date Status TIZANIDINE HCL PO Take 25 mg by mouth 3 (three) times a day. 0 Active alendronate (FOSAMAX) 35 MG tablet Take 35 mg by mouth every 7 days. Take in the morning with a full glass of water, on an empty stomach, and do not take anything else by mouth or lie down for the next 30 min. 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 Compression fracture of T9 vertebra 07/30/2018 Compression fracture of T12 vertebra 07/30/2018 Tobacco abuse 07/30/2018 Social History Tobacco Use Types Packs/Day Years Used Date Smoking Tobacco: Every Day Smokeless Tobacco: Never Alcohol Use Standard Drinks/Week Comments No 0 (1 standard drink = 0.6 oz pur e alcohol) Sex and Gender Information Value Date Recorded Sex Assigned at Not on file Gender Identity Not on file Sexual Orientation Not on file Last Filed Vital Signs Vital Sign Reading Time Taken Comments Blood Pressure 148/74 08/28/2018 3:44 PM EDT Pulse 95 08/28/2018 3:44 PM EDT Temperature 36.7 ??C (98.1 ??F) 08/28/2018 3:44 PM ED T Respiratory Rate - - Oxygen Saturation - - Inhaled Oxygen Concentration - - Weight 71.2 kg (157 lb) 08/28/2018 3:44 PM EDT Height 152.4 cm (5') 08/28/2018 3:44 PM EDT Body Mass Index 30.66 08/28/2018 3:44 PM EDT Plan of Treatment Health Maintenance Due Date Last Done Comments Hepatitis C Screening 1955 COVID-19 Vaccine (#1) 1955 Pneumococcal Vaccine (1 of 2 - PCV) 1961 Depression Screening 1967 Preventative Health Evaluation 1973 DTap / Tdap / Td (1 - Tdap) 1974 Colon Cancer Screening (Colonoscopy) 2000 Breast Cancer Screening (Mammogram) 2005 Shingrix-Zoster Vaccine (1 of 2) 2005 Fall Risk Assessment 2020 Osteoporosis Screening (DEXA Scan) 2020 Influenza Vaccine (#1) 2023 RSV Adult > 60+ Yrs or Pregn ant (1 - 1-dose 75+ series) 2030 Hepatitis B Vaccines Aged Out No long er eligible based on patient's age to complete this topic RSV Ped < 20 months Aged Out No longe r eligible based on patient's age to complete this topic Insurance Payer Benefit Plan / Group Subscriber ID Effective Dates Phone Address [facility] [id number] 2016-Present [address] [facility] [address] [place] [address] [facility] Care Teams Compliance Engineer Products Relationship Specialty Start Date End Date Carlos Cosby PA [address] [place] [address] PCP - General Physician Stained Glass Window Designer 07/30/18
[2024-05-27] MEDS: iohexoL 350 MG/ML 100 ML INFUS..BTL IV (12:53)
[2024-05-27] MEDS: Barium Sulfate Oral (Berry) 450 ML ORAL.SUSP PO ×2 (12:54)
== END 2024-05-27 09:45 | disposition home or self-care (01) ==
LOC: HO.CT 09:44
PROVIDERS: PCP Physician Assistant; Visit Provider Physician Assistant
DX: K52.9 Noninfective gastroenteritis and colitis, unspecified (principal)
CPT/HCPCS: 74177; Q9967

== ENCOUNTER → 2024-05-27 09:45 | Outpatient (BNV) | payer MEDICARE, SELFPAY | PROVIDERS: PCP Physician Assistant; Visit Provider Radiology Vascular & Interventional Radiology | DX: K52.9 Noninfective gastroenteritis and colitis, unspecified (principal) | CPT/HCPCS: 74177 ==

== ENCOUNTER 2024-06-13 11:15 | Outpatient (AMB) | payer MEDICARE, SELFPAY ==
--- NOTE | 2024-06-13 11:31 | A.OFFVIS_ITS ---
Vital Signs 06/13/24 11:32 06/13/24 11:32 Height 4 ft 10 in Weight 165 lb BMI 34.5 BP 155/67 H Blood Pressure Location Rt brachial Position Sitting Pulse 114 H 121 H Pulse Source Pulse Oximeter Pulse Oximeter Pulse Oximetry (%) 86 L 94 Oxygen Delivery Method Room Air Room Air Intake Visit Reasons: follow up MRI results Intake Note: Pain today 01/16 Field Mechanic Required: No Accompanied by: Self / Same As Patient Allergies morphine Allergy (Unknown, Verified 06/13/24 11:33) Unknown HPI Comments Details: Patient presents today for follow up to discuss recent lumbar spine MRI results. She continues to endorse persistent axial low back pain and bilateral foot pain, worse on the left. Denies any recent cough, cold, infection, fever or any significant changes in medical history since last office visit. PRIOR: Patient is a pleasant 69 years female with prior history of osteoporosis, osteopenia, prior multilevel thoracic kyphoplasties (2016), COPD, O2 dependent, knee osteoarthritis, polymyalgia rheumatica, anxiety and obesity, presents today for initial evaluation of chronic low back pain with left sided radiculopathy. Reports recent fall in December and landed on her left side and had increased left shoulder pain and back pain with radiation into her left buttock and left leg pain. She was referred to our office by her PCP. Back pain is axial and also radiates into her left lower extremity in L5 distribution. She occasional experience right leg pain with tingling in L5-S1 distribution. Pain affects her daily activities and functioning, mobility, movements, sleep, caring for her disabled adult child at home, and quality of life. Pain increases with prolonged activities and especially with bending, lifting or cold. Denies previous spine surgery but reports having back injections over 20 years ago visit. SLR testing today significantly exacerbated her left radicular pain. Patient also became dyspneic with exertion during the back exam. She presented without oxygen today and had mild shows shortness of breath and coughing. Patient reports she left her O2 tank and walker in the car due to parking issues today. For pulse oximetry decreased to 86 and 97% on room air and she received supplemental O2 at 3 L via nasal cannula in the office with increased SaO2 to 92%. Patient has completed physical therapy for shoulder gait last year. Currently she can not pursue formal physical therapy due to doing in his charts significant low back pain, dyspnea on exertion and O2 dependency. Denies any fever or chills, abdominal or groin pain, bladder dysfunction or saddle anesthesia. Location: Lower back radiates down bilateral legs, left leg worse Duration: Chronic pain for many years, recent mechanical fall in December Characteristics of symptom or complaint: Aching, throbbing, shooting, radiating, spasming, cramping, N/T, burning Aggravating or associated factors: Prolonged standing, bending, walking, lifting Relieving factors: Tylenol extra-strength Treatment: Back injections >20 years ago, walker [facility] Medical History Personal history of nicotine dependence Fatigue Back pain Osteoporosis (~2015) Supplemental oxygen dependent PMR (polymyalgia rheumatica) HTN (hypertension) COPD (chronic obstructive pulmonary disease) Knee osteoarthritis Lumbar radiculopathy, chronic Obesity (BMI 30-39.9) Anxiety Surgical History History of kyphoplasty (~2016) History of tubal ligation Family History Father Heart disease Diabetes mellitus Mother Stroke Social History Housing: House Alcohol intake: never Patient Tobacco Use Status: Former Tobacco user (2019) Tobacco use type: Cigarette e-Cigarette/Vaping Use: Never Used Second Hand Smoke Exposure: No service: No Current occupational status: employed Cognitive needs: No Hearing needs: No Vision needs: No Review of Systems Const All systems reviewed & are unremarkable except as noted in HPI and below Physical Exam Vital Signs: Last Vital Signs Pulse 121 H 06/13/24 11:32 BP 155/67 H 06/13/24 11:32 Pulse Ox 94 06/13/24 11:32 Oxygen Delivery Method Room Air 06/13/24 11:32 BMI result Body Mass Index 34.5 General: Appears afebrile. Alert and oriented. Mood and affect appropriate. Follows and participates in conversation appropriately. Respiratory effort is unlabored. No cough. Audible wheezes present. Patient left O2 in her car. Able to transition from sit to stand unassisted. Uses walker with ambulation. Ambulates with bilaterally normal heel strike and toe off, increased LLE with toe and heel standing due to pain. General: Yes no CVA tenderness Back/Spine/Pelvis Other: Limited thoracolumbar ROM due to pain. Antalgic gait with limping. Lumbar flexion, bending forward and axial rotation and extension reproduce moderate pain. Demonstrates 5/5 strength of quadriceps bilaterally as well as flexion/dorsiflexion of bilateral feet against resistance. 2+ pedal pulses bilaterally. Seated straight leg rise with dorsiflexion is negative bilaterally. +1 patellar and achilles reflexes bilaterally. Facet loading test positive bilaterally. Page sign, Esteban?s, Pelvic compression and Stinchfield tests are positive bilaterally, left>right. No groin pain with I/E hip rotations. Valsalva maneuver negative. Back: no CVA tenderness Cervical Spine: loss of normal cervical lordosis, cervical muscular tenderness, pain with cervical ROM and No Cervical spine tenderness Thoracic/Lumbar Spine: thoracic and lumbar spine normal to inspection, Thoracic/lumbar spine scar(s), Lasegue's sign negative, straight leg raise negative bilaterally, pain with thoraco-lumbar ROM, paraspinal muscle tenderness on the left greater than right, thoraco-lumbar ROM limited, No thoracic spinal tenderness and lumbar spinal tenderness (L3-S1) Pelvis: buttock tenderness on the left and no sciatic notch tenderness Sacroiliac joints: bilaterally tender to palpation Extrem General: Yes capillary refill normal, Yes no clubbing, cyanosis or edema and Yes no calf tenderness Left lower extremity: foot Results Reviewed Results Reviewed: XR LUMBOSACRAL SPINE 01/03/24 CLINICAL INFORMATION: M54.50 - Low back pain, unspecified FINDINGS: There is diffuse osteopenia. No fracture, dislocation, or focal suspicious bony abnormality. Kyphoplasty cement redemonstrated in T8, T9, and T12. Chronic appearing mild inferior endplate compression deformity of T10. Minimal superior endplate concavity of L2. No additional compression deformities. No scoliosis. Normal lordosis. Normal alignment. No subluxations. Oblique views demonstrate no evidence of pars defects. Mild to moderate multilevel degenerative disc changes present. Moderate facet degeneration and hypertrophy spanning L3-S1. Soft tissues demonstrate vascular calcifications. IMPRESSION: 1. No acute bony abnormalities of the lumbar spine. 2. Osteopenia with mild to moderate degenerative changes. No subluxations. 3. Minimal superior endplate concavity of L2, chronic appearance. 4. Mild inferior endplate concavity of T10, chronic appearance. 5. Vertebroplasty cement in T8, T9, and T12. XR THORACIC SPINE 01/03/24 CLINICAL INFORMATION: M54.6 - Pain in thoracic spine COMPARISON: 11/25/2021. FINDINGS: Diffuse osteopenia. There is no scoliosis. There is a mildly exaggerated thoracic kyphosis. Vertebroplasties noted T8, T9, and T12. Mild compression deformity inferior endplate T10, stable. No additional compression seen. Alignment is anatomic. Mild to moderate diffuse disc degeneration and mild facet degeneration. Imaged lungs and soft tissues appear normal. IMPRESSION: 1. No acute findings in the thoracic spine. 2. Osteopenia with vertebroplasty cement present in T8, T9, and T12. 3. Mild inferior endplate compression deformity T10, unchanged. No new compression seen. 4. Degenerative changes. MR lumbar spine without contrast 05/24/24 Comparison: None Findings: Compression fracture at T12 with kyphoplasty cement. No acute compression fracture or acute malalignment. Minimal anterolisthesis of L4 with respect to L5. The conus terminates normally at L1. Cauda equina are unremarkable. Paravertebral soft tissues are within normal limits. Retroperitoneal structures demonstrate multiple renal cysts. Individual levels: L1-L2: Unremarkable. L2-L3: Unremarkable. L3-L4: No central canal stenosis or neural foraminal narrowing. Minimal facet hypertrophy. L4-L5: Minimal left neural foraminal narrowing. No central canal stenosis. L5-S1: Minimal bilateral neural foraminal narrowing. Impression: Old compression fracture at T12. Mild degenerative changes. No acute process. Assessment & Plan Assessment & Plan (1) Bilateral foot pain: Code(s): M79.671 - Pain in right foot; M79.672 - Pain in left foot Category: Medical (2) Lumbar back pain: Code(s): M54.50 - Low back pain, unspecified Category: Medical (3) Lumbosacral spondylosis: Code(s): M47.817 - Spondylosis without myelopathy or radiculopathy, lumbosacral region Category: Medical (4) Vertebrogenic low back pain: Code(s): M54.51 - Vertebrogenic low back pain Category: Medical Plan MRI of the lumbar spine results were discussed today and consistent with axial low back pain. No central canal stenosis, minimal bilateral neural foraminal narrowing in the lower spine. We will proceed with bilateral diagnostic L3-L4 DR L5 MBB with local and fluoroscopy. Expectations, risks and benefits were reviewed. Patient is aware she will be contacted to schedule this procedure. If she has significant relief from the diagnostic blocks for her axial low back pain, Sprint PNS or RFA depending on her preference. Will avoid steroid injections due to h/o osteoporosis. Podiatry referral for ongoing bilateral foot pain, worse on the left since patient fell in December 2023 and landed on her left side. All questions were answered and the patient is in agreement of plan. Follow-up after injections and sooner as needed. Orders: Referrals Podiatry Referral M79.671 - Pain in right foot, M79.672 - Pain in left foot Coding Level of Care Code Est Pt Level 4 (96072) Complex EM visit Add On G2211 Diagnoses Bilateral foot pain M79.671; M79.672 Lumbar back pain M54.50 Lumbosacral spondylosis M47.817 Vertebrogenic low back pain M54.51
[2024-06-13 11:32] VITALS: BP 155/67; PULSE 114; PULSE 121; O2SAT 86; O2SAT 94; BMI 34.5
--- OUTSIDE RECORDS SUMMARY | 2024-06-13 13:02 | XMS_ITS | Clinical Summary ---
Author Organization [facility] Address [address] [place] [address] Care Team Providers Care Water Mangle Tender Name Role Phone Carlos Cosby Primary Care Provider [phone]- [phone] Allergies No known active allergies Medications Medication [...] Group Subscriber ID Effective Dates Phone Address [facility] [id number] 2016-Present [address] [facility] [address] [place] [address] [facility] Care Teams Water Mangle Tender Relationship Specialty Start Date End Date Carlos Cosby PA [address] [place] [address] PCP - General Physician Slip Laster 07/30/18
== END 2024-06-13 11:51 | disposition home or self-care (01) ==
PROVIDERS: PCP Physician Assistant; Visit Provider Nurse Practitioner Family
DX: M79.671 Pain in right foot (principal); M79.672 Pain in left foot; M54.50 Low back pain, unspecified; M47.817 Spondylosis without myelopathy or radiculopathy, lumbosacral region; M54.51 Vertebrogenic low back pain
CPT/HCPCS: 99214; G2211

== ENCOUNTER → 2024-06-13 11:15 | Outpatient (BNVA) | payer MEDICARE, SELFPAY | PROVIDERS: PCP Physician Assistant; Visit Provider Nurse Practitioner Family | DX: M81.0 Age-related osteoporosis without current pathological fracture (principal); M85.80 Other specified disorders of bone density and structure, unspecified site; M35.3 Polymyalgia rheumatica; M79.671 Pain in right foot; M79.672 Pain in left foot; M54.50 Low back pain, unspecified; M47.817 Spondylosis without myelopathy or radiculopathy, lumbosacral region; M54.51 Vertebrogenic low back pain; E66.9 Obesity, unspecified; Z68.34 Body mass index [BMI] 34.0-34.9, adult | CPT/HCPCS: 99212 ==

== ENCOUNTER 2024-06-25 11:30 | Outpatient (AMB) | payer MEDICARE, SELFPAY ==
--- NOTE | 2024-06-25 11:39 | MHC.PC.OV ---
Vital Signs 06/25/24 11:40 Height 4 ft 11 in Weight 164 lb 8 oz BMI 33.2 BP 118/58 L Blood Pressure Location Lt brachial Position Sitting Pulse 80 Pulse Source Pulse Oximeter Temp 97.4 F Temp Source Temporal Artery Scan Pulse Oximetry (%) 96 Oxygen Delivery Method Nasal Cannula Oxygen Flow Rate 3 Intake Visit Reasons: f/u COPD/ weight check Intake Note: The patient is requesting a prescription for a portable oxygen kit to be sent to [facility]. School Library Media Program Director Required: Yes School Library Media Program Director Language: Director Of Intelligence Name: used tablet- Accompanied by: Self / Same As Patient Allergies morphine Allergy (Unknown, Verified 06/25/24 12:00) Unknown Medication List - Last Reconciled 06/25/24 by Carlos Cosby PA-C acetaminophen ER 650 mg PO Q8H PRN albuterol sulfate 90 mcg/actuation 2 puffs inhalation Q4-6H PRN alendronate (Fosamax) 70 mg PO QWEEK 12 weeks baclofen 10 mg PO BEDTIME 30 days bisacodyl (Dulcolax (bisacodyl)) 10 mg (2 x 5 mg) PO ONCE 1 day blood pressure monitor As directed blood pressure test kit-medium As directed Breztri Aerosphere 160-9-4.8 mcg/actuation (mqosupsdij-dypmsbfk-nykhzqmvcj) 2 inhalations inhalation BID 30 days NS lisinopril-hydrochlorothiazide 10-12.5 mg 1 tab PO DAILY loperamide 2 mg PO Q8H PRN 14 days magnesium oxide 400 mg PO DAILY 90 days psyllium husk (Metamucil) 1 tbsp PO DAILY PRN 30 days semaglutide (weight loss) (Wegovy) 0.25 mg (0.5 mL) subcut QWEEK 4 weeks sertraline 50 mg PO DAILY 90 days sodium polystyrene sulfonate 30 grams PO DAILY 2 days Tobacco use date assessed: 06/25/24 Dental Screening Dental Screen Date: 05/31/23 HPI f/u COPD/ weight check HPI Details Patient is a 69-year-old female here today for follow-up visit.? Patient's past medical history significant for hypertension, bilateral shoulder pain, COPD, lumbar Radiculopathy, obesity. Lumbar spine pain: patient has followed up with [place] pain management and has gotten lumbar MRI that did show a total of 12 old compression fracture. Of note has a history of compression fracture in her thoracic spine. Pain management is considering lumbar spine injection patient is waiting to hear back on insurance coverage for this. .. Hypertension:? Patient's blood pressure acceptable today in office. Patient continues on lisinopril hydrochlorothiazide with good effect. .. COPD:? Was a former smoker.? Patient has followed up with pulmonology and was started on an oral and supplemental oxygen at 3 liters/minute.? 6 minute walking test showed hypoxemia and need for supplemental oxygen.? Has been started on maintenance inhaler and feels her breathing has been much improved. ? Has not been able to wear her supplemental oxygen due to still working in her O2 canister is too large.? Does use supplemental oxygen at home. patient?s COPD management has been complicated by challenges with oxygen equipment?specifically, the use of large B cylinder oxygen tanks that are too cumbersome to move easily in and out of her residence. She aims to acquire smaller, more portable cylinders to better manage her oxygen dependency. [facility] Medical History Personal history of nicotine dependence Fatigue Back pain Osteoporosis (~2015) Supplemental oxygen dependent PMR (polymyalgia rheumatica) HTN (hypertension) COPD (chronic obstructive pulmonary disease) Knee osteoarthritis Lumbar radiculopathy, chronic Obesity (BMI 30-39.9) Anxiety Surgical History History of kyphoplasty (~2017) History of tubal ligation Family History Father Heart disease Diabetes mellitus Mother Stroke Social History Housing: House Alcohol intake: never Patient Tobacco Use Status: Former Tobacco user (2019) Tobacco use type: Cigarette e-Cigarette/Vaping Use: Never Used Second Hand Smoke Exposure: No service: No Current occupational status: employed Cognitive needs: No Hearing needs: No Vision needs: No Questionnaire Thrive Questionnaire Date Thrive assessed: 05/31/23 FANG-7 AMB Questionnaire FANG-7 Date FANG - 7 assessed: 05/31/23 Source: Developed by Angeli Galdamez B.W. Bradley, Colin Hugo and colleagues, with an educational grupo from [employer]. Review of Systems Const Denies headache(s) Eyes Denies loss of vision ENT Denies vertigo, Denies dizziness, Denies headache(s) and Denies sore throat Card Denies chest pain, Denies leg edema and Denies lightheadedness Resp Denies cough, Denies hemoptysis and Denies wheezing GI Denies abdominal pain, Denies melena, Denies constipation, Denies diarrhea and Denies vomiting Denies urinary frequency, Denies dysuria and Denies urinary urgency Musc Denies arthralgias, Denies joint swelling, Denies numbness and Denies tingling Neuro Denies Abnormal speech present, Denies behavioral changes, Denies vertigo, Denies dizziness, Denies headache(s), Denies loss of vision, Denies memory loss, Denies numbness and Denies tingling Psych Denies anxiety, Denies behavioral changes, Denies depression, Denies memory loss and Denies panic attacks Herberth/Lymph Denies easy bleeding and Denies easy bruising Aller/Immun Denies wheezing Physical exam (Primary Care) Vital Signs: Last Vital Signs Temp 97.4 F 06/25/24 11:40 Pulse 80 06/25/24 11:40 BP 118/58 L 06/25/24 11:40 Pulse Ox 96 06/25/24 11:40 Oxygen Delivery Method Nasal Cannula 06/25/24 11:40 Oxygen Flow Rate 3 06/25/24 11:40 BMI result Body Mass Index 33.2 Tobacco/Smoking Status: Tobacco use Status Tobacco use date assessed 06/25/24 06/25/24 11:51 Patient Tobacco Use Status Former Tobacco user (2019) 06/25/24 11:51 Tobacco use type Cigarette 06/25/24 11:51 e-Cigarette/Vaping Use Never Used 06/25/24 11:51 Thrive Assessment: Date of Thrive Assessment Date Thrive assessed 05/31/23 06/25/24 11:51 Const General: healthy appearing, no acute distress, alert and awake Nutritional Appearance: well nourished Orientation/consciousness: oriented to person, oriented to place and oriented to time HENMT Ears: TM's normal bilaterally General nose exam: Normal nasal mucous membranes and turbinates present Eyes Conjunctivae: conjunctivae normal Sclerae: sclerae normal Pupils: Equal, round and reactive pupils present Neck Neck: Yes no lymphadenopathy and Yes no JVD Thyroid: Thyroid normal Carotids: no bruits Resp Effort & Inspection: normal respiratory effort and not tachypneic Auscultation: no crackles, no rales, no rhonchi and no wheezes Cardio Rate: regular rate Rhythm: regular rhythm Heart sounds: no murmurs and normal S1 and S2 GI Palpation (GI): Soft to palpation, nontender, no hepatomegaly and no splenomegaly Auscultation: normal bowel sounds Skin General skin exam: no rashes or lesions noted and dry skin Neuro General: oriented to person, oriented to place and oriented to time Cranial nerves: Yes Equal, round and reactive pupils present Speech: No Abnormal speech present Gait exam (Neuro): Normal gait present Motor exam (neuro): no tremor noted Extrem Right upper extremity: full ROM Left upper extremity: full ROM Right lower extremity: full ROM; no edema Left lower extremity: full ROM; no edema Psych Mental Status: mental status grossly normal Speech and movement: Normal speech and movement present Affect: normal affect Attitude: cooperative Thought process: Normal thought process present Coding Level of Care Code Est Pt Level 4 (05733) Diagnoses Chronic bronchitis, unspecified chronic bronchitis type J42 COPD type: chronic bronchitis Chronic bronchitis type: unspecified Low back pain radiating to left lower extremity M54.50; M79.605 Class 1 obesity E66.811 Bilateral foot pain M79.671; M79.672 Assessment & Plan Assessment & Plan (1) COPD (chronic obstructive pulmonary disease): Code(s): J44.9 - Chronic obstructive pulmonary disease, unspecified Category: Medical Qualifiers: COPD type: chronic bronchitis Chronic bronchitis type: unspecified Qualified Code(s): J42 - Unspecified chronic bronchitis Plan: Patient followed by pulmonology and continues on maintenance inhalers. She is on so on O2 continuously throughout the day to which she is looking for a smaller oxygen canisters so that she can be more mobile. (2) Low back pain radiating to left lower extremity: Code(s): M54.50 - Low back pain, unspecified; M79.605 - Pain in left leg Category: Medical Plan: As per HPI patient followed by pain management here in [place]. She is due for an MRI of the lumbar spine as she has been having bilateral lower extremity radicular symptoms. (3) Class 1 obesity: Code(s): E66.811 - Obesity, class 1 Category: Medical Plan: Patient reports she has been having difficulty losing weight and would like to try medication to help her lose weight. She has not been able to be physically active due to her chronic lumbar spine pain. She is willing to try a GLP 1 to help her lose weight. We did discuss the possible GI side effects (4) Bilateral foot pain: Code(s): M79.671 - Pain in right foot; M79.672 - Pain in left foot Category: Medical Plan: Patient reporting bilateral foot pain. She is willing to get x-ray to evaluate. Orders: Orders Lipid Panel 06/25/24 E78.2 - Mixed hyperlipidemia Microalbumin, Random (w Creat) 06/25/24 I10 - Essential (primary) hypertension XR foot LT 2V 06/25/24 M79.671 - Pain in right foot, M79.672 - Pain in left foot Comprehensive [place]. Panel Fast 06/25/24 I10 - Essential (primary) hypertension Complete Blood Count no Diff 06/25/24 I10 - Essential (primary) hypertension XR foot RT 2V 06/25/24 M79.671 - Pain in right foot, M79.672 - Pain in left foot Medications: New [Oxygen -3LPM- B type cylinder] As directed 1 ea 0RF J42 - Unspecified chronic bronchitis, Z99.81 - Dependence on supplemental oxygen baclofen 20 mg PO BEDTIME 90 tabs 2RF 90 days M54.6 - Pain in thoracic spine Discontinued baclofen Discontinued Reason: Doctor's Order 10 mg PO BEDTIME 30 days 30 tabs 1RF M47.817 - Spondylosis without myelopathy or radiculopathy, lumbosacral region
[2024-06-25 11:40] VITALS: BP 118/58; PULSE 80; TEMP 36.3; O2SAT 96; BMI 33.2
== END 2024-06-25 12:24 | disposition home or self-care (01) ==
LOC: HO.HMCH 11:31
PROVIDERS: PCP Physician Assistant; Visit Provider Physician Assistant
DX: J42 Unspecified chronic bronchitis (principal); M54.50 Low back pain, unspecified; E66.811 Obesity, class 1; Z68.33 Body mass index [BMI] 33.0-33.9, adult; M79.605 Pain in left leg; M79.671 Pain in right foot; M79.672 Pain in left foot

== ENCOUNTER → 2024-06-25 11:30 | Outpatient (BNVA) | payer MEDICARE, SELFPAY | PROVIDERS: PCP Physician Assistant; Visit Provider Physician Assistant | DX: J42 Unspecified chronic bronchitis (principal); M54.50 Low back pain, unspecified; M79.605 Pain in left leg; E66.811 Obesity, class 1; M79.671 Pain in right foot; M79.672 Pain in left foot | CPT/HCPCS: 99212 ==

== ENCOUNTER 2024-07-12 09:40 | Outpatient (REF) | payer MEDICARE, SELFPAY ==
--- NOTE | ~2024-07-12 | XR_ITS ---
EXAMINATION: XR FOOT, LEFT CLINICAL INFORMATION: M79.671 - Pain in right foot COMPARISON: None available. TECHNIQUE: AP, lateral, and oblique views of the left foot. FINDINGS: No fracture, dislocation, or suspicious bone lesion. Normal bone mineralization. Normal alignment. Normal plantar arch. Joint spaces are preserved. No significant arthropathy. Small dorsal and plantar calcaneal spurs. Soft tissues appear normal. XR/XR foot LT 2V IMPRESSION: No acute bony abnormalities. Electronically signed by: Rohan Bowman MD 07/14/2024 03:05 PM EDT
--- NOTE | ~2024-07-12 | XR_ITS ---
EXAMINATION: XR FOOT, RIGHT CLINICAL INFORMATION: M79.671 - Pain in right foot COMPARISON: None available. TECHNIQUE: AP, lateral, and oblique views of the right foot. FINDINGS: No fracture, dislocation, or suspicious bone lesion. Normal bone mineralization. Normal alignment. Normal plantar arch. Joint spaces are preserved. No significant arthropathy. Small dorsal and plantar calcaneal spurs. Soft tissues appear normal. XR/XR foot RT 2V IMPRESSION: No acute bony abnormalities. Electronically signed by: Rohan Bowman MD 07/14/2024 03:06 PM EDT
--- OUTSIDE RECORDS SUMMARY | 2024-07-12 09:43 | XMS_ITS | Clinical Summary ---
Author Organization [employer] [facility] Address [address] [place] [address] Care Team Providers Care Patient Registrar Name Role Phone Carlos Cosby Primary Care Provider [phone]- [phone] Allergies No known active allergies Medications Medication [...] Group Subscriber ID Effective Dates Phone Address [facility] [id number] 2016-Present [address] [facility] [address] [place] [address] [facility] [place] Care Teams Patient Registrar Relationship Specialty Start Date End Date Carlos Cosby PA [address] [place] [address] PCP - General Physician Product Safety Head 07/30/18
[2024-07-12 10:22] LABS: Hemoglobin 12.3 g/dl (12.0-16.0); PLT CLUMP 1
[2024-07-12 10:23] LABS: Hematocrit 38.2 % (37.0-47.0); Mean Corpuscular HGB Conc 32.2 g/dl (31.0-35.0); Mean Corpuscular Hemoglobin 31.4 pg (27.0-33.0); Mean Corpuscular Volume 97.4 fL (80.0-98.0); Mean Platelet Volume 10.1 fL (9.4-12.3); Red Blood Count 3.92 X10*6/uL (4.20-5.50); Red Cell Distribution Width 12.5 % (11.0-16.0)
[2024-07-12 10:25] LABS: White Blood Count 4.7 X10*3/uL (4.8-10.8)
[2024-07-12 10:26] LABS: Platelet Count 123 X10*3/uL (160-400)
[2024-07-12 11:02] LABS: Alanine Aminotransferase 16 U/L (0-31); Albumin Level 4.3 g/dL (3.5-5.0); Alkaline Phosphatase 96 U/L (39-117); Anion Gap 11 (12-20); Aspartate Amino Transferase 27 U/L (5-31); Bilirubin Total 0.3 mg/dL (0.0-1.0); Blood Urea Nitrogen 35 mg/dL (9-16); Calcium 9.4 mg/dL (8.4-10.2); Carbon Dioxide 24 mmol/L (22-29); Chloride 112 mmol/L (96-108); Cholesterol 227 mg/dL (<200); Estimated Glomerular Filt Rate 45; Glucose Fasting 98 mg/dL (60-99); HDL Cholesterol 42 mg/dL (>40); LDL Cholesterol Calculated 128 mg/dL (<100); Potassium 5.5 mmol/L (3.3-5.1); Sodium 141 mmol/L (135-145); Total Protein 7.4 g/dL (6.5-8.0); Triglycerides 288 mg/dL (<150)
[2024-07-12 12:55] LABS: Creatinine Urine 156.25 mg/dL; Microalbum/Creatinine Ratio Ur 15.3 ug/mg cr (<30)
== END 2024-07-12 09:41 | disposition home or self-care (01) ==
LOC: HO.XRAY 09:40
PROVIDERS: PCP Physician Assistant; Visit Provider Physician Assistant
DX: M79.671 Pain in right foot (principal); M79.672 Pain in left foot; I10 Essential (primary) hypertension; E78.2 Mixed hyperlipidemia
CPT/HCPCS: 36415; 73620; 80053; 80061; 82043; 82570; 85027

== ENCOUNTER → 2024-07-12 10:09 | Outpatient (BNV) | payer MEDICARE, MEDICAID, SELFPAY | PROVIDERS: PCP Physician Assistant; Visit Provider Radiology Diagnostic Radiology | DX: M79.671 Pain in right foot (principal) | CPT/HCPCS: 73620 ==

== ENCOUNTER 2024-07-24 06:16 | Outpatient (REF) | payer MEDICARE, MEDICAID, SELFPAY ==
--- NOTE | ~2024-07-24 | FL_ITS ---
EXAMINATION: FL GUIDANCE ONLY HISTORY: M47.817 - Spondylosis without myelopathy or radiculopathy, lumbosacral COMPARISON: None available. TECHNIQUE: Fluoroscopy time: 0.1 minutes. Cumulative Dose: 2.19 mGy. DAP: 0.0226 mGym2 Images: 3. FINDINGS: Endoscopic spot films of the lumbar spine demonstrate needles and contrast material in the regions of the bilateral L4-5 and L5-S1 facet joints. FL/FL guidance in treatment room IMPRESSION: Fluoroscopy during procedure. Please see procedure report for additional information. Electronically signed by: Lester Norwood MD 07/24/2024 02:08 PM EDT
--- OUTSIDE RECORDS SUMMARY | 2024-07-24 06:20 | XMS_ITS | Clinical Summary ---
Author Organization [employer] [facility] Address [address] [place] [address] Care Team Providers Care Parts Fabricator Name Role Phone Carlos Cosby Primary Care Provider [phone]- [phone] Allergies No known active allergies Medications Medication [...] Group Subscriber ID Effective Dates Phone Address [facility] [id number] 2016-Present [address] [facility] [address] [place] [address] [facility] [place] Care Teams Parts Fabricator Relationship Specialty Start Date End Date Carlos Cosby PA [address] [place] [address] PCP - General Physician Management Coordinator 07/30/18
== END 2024-07-24 06:17 | disposition home or self-care (01) ==
LOC: CF 06:16
PROVIDERS: Visit Provider Internal Medicine
DX: M47.817 Spondylosis without myelopathy or radiculopathy, lumbosacral region (principal)
CPT/HCPCS: 64493; 64494; J2003; J2795; Q9967

== ENCOUNTER 2024-07-24 11:12 | Outpatient (AMB) | payer MEDICARE, MEDICAID, SELFPAY ==
[2024-07-24 11:24] VITALS: BP 144/62; PULSE 88; RESP 16; O2SAT 91
--- NOTE | 2024-07-24 11:24 | MHC.OFFVIS ---
Vital Signs 07/24/24 11:24 07/24/24 12:20 BP 144/62 H 152/84 H Blood Pressure Location Lt brachial Lt brachial Position Sitting Sitting Respiration 16 16 Pulse 88 96 Pulse Source Pulse Oximeter Pulse Oximeter Pulse Oximetry (%) 91 L 92 Oxygen Delivery Method Room Air Room Air Intake Visit Reasons: Chang Dx L3-L4-DR-L5 MBB Environmental Scientist Required: No Allergies morphine Allergy (Unknown, Verified 07/24/24 11:24) Unknown Medication List - Last Reconciled 07/24/24 by Samantha Mcintyre LPN acetaminophen ER 650 mg PO Q8H PRN albuterol sulfate 90 mcg/actuation 2 puffs inhalation Q4-6H PRN alendronate (Fosamax) 70 mg PO QWEEK 12 weeks amlodipine 5 mg PO DAILY 90 days baclofen 20 mg PO BEDTIME 90 days bisacodyl (Dulcolax (bisacodyl)) 10 mg (2 x 5 mg) PO ONCE 1 day blood pressure monitor As directed blood pressure test kit-medium As directed Breztri Aerosphere 160-9-4.8 mcg/actuation (urwkruarqw-yawbfomc-skcfdekqzj) 2 inhalations inhalation BID 30 days NS lisinopril-hydrochlorothiazide 10-12.5 mg 1 tab PO DAILY loperamide 2 mg PO Q8H PRN 14 days magnesium oxide 400 mg PO DAILY 90 days [Oxygen -3LPM- B type cylinder As directed] psyllium husk (Metamucil) 1 tbsp PO DAILY PRN 30 days semaglutide (weight loss) (Wegovy) 0.25 mg (0.5 mL) subcut QWEEK 4 weeks sertraline 50 mg PO DAILY 90 days sodium polystyrene sulfonate 30 grams PO DAILY 2 days HPI HPI Chang Dx L3-L4-DR-L5 MBB: Details: Patient presents for scheduled procedure. Denies any recent cough, cold, infection, fever or other significant changes in medical history since last office visit. [facility] Medical History Personal history of nicotine dependence Fatigue Back pain Osteoporosis (~2015) Supplemental oxygen dependent PMR (polymyalgia rheumatica) HTN (hypertension) COPD (chronic obstructive pulmonary disease) Knee osteoarthritis Lumbar radiculopathy, chronic Obesity (BMI 30-39.9) Anxiety Surgical History History of kyphoplasty (~2017) History of tubal ligation Family History Father Heart disease Diabetes mellitus Mother Stroke Social History Housing: House Alcohol intake: never Patient Tobacco Use Status: Former Tobacco user (2019) Tobacco use type: Cigarette e-Cigarette/Vaping Use: Never Used Second Hand Smoke Exposure: No service: No Current occupational status: employed Cognitive needs: No Hearing needs: No Vision needs: No Physical Exam Vital Signs: Last Vital Signs Pulse 88 07/24/24 11:24 Resp 16 07/24/24 11:24 BP 144/62 H 07/24/24 11:24 Pulse Ox 91 L 07/24/24 11:24 Oxygen Delivery Method Room Air 07/24/24 11:24 Office Procedures Lumbar/Sacral Facet Inj Details: Lumbar Medial Branch Block, Bilateral L3, L4 medial branches and L5 Dorsal Ramus (2 levels, 3 nerves) After obtaining written consent, pre-procedure blood pressure and pulse were recorded and are in the nursing record for review. The patient was placed in a prone position. The respective lumbosacral area was prepped with chloraprep and draped in sterile fashion. The skin over the target medial branch nerves was anesthetized with 0.5% lidocaine. A 22 gauge 3.5 inch needle was inserted into the target medial branch nerve under fluoroscopic guidance. No paresthesias were elicited with needle placement and aspiration was negative for blood and CSF. Next, 0.2cc of omnipaque 180 was injected to verify positioning. Next 0.5 ml 0.5% ropivicaine was injected (0.5cc total per level). The identical procedure was performed at the remaining levels. The skin was cleansed and a sterile bandage was applied. Following the procedure the patient's vital signs were stable. The patient tolerated the procedure well and no complications were encountered. Following the procedure the patient's vital signs were stable. The patient was discharged home in good condition with post-procedural instructions. Time Out: Immediately prior to the procedure, the following was verbally confirmed that there is a signed consent form and that the correct patient, planned procedure, site and side are consistent with documentation and that necessary equipment and/or blood products are available prior to the start of the case. Complications: none EBL: <5 cc 49321 - with Fluoroscopy 91874 - second level, with Fluoroscopy Procedure code (CPT) selection complete Assessment & Plan Assessment & Plan (1) Lumbosacral spondylosis: Code(s): M47.817 - Spondylosis without myelopathy or radiculopathy, lumbosacral region Category: Medical Plan Patient is status post lower lumbar diagnostic medial branch blocks. Patient tolerated procedure well and was discharged home in stable condition with discharge instructions. All questions were answered. We will follow-up via telephone or in clinic to assess response to therapy. A follow-up appointment was made during today's visit. Orders: Orders FL guidance in treatment room Today M47.817 - Spondylosis without myelopathy or radiculopathy, lumbosacral region Coding Level of Care Code Procedure Only Diagnoses Lumbosacral spondylosis M47.817 CPT Codes Facet Injection-Lumbar/Sacral - CPT: 39681 - with Fluoroscopy ([id number]) Facet Injection-Lumbar/Sacral - CPT: 93721 - second level, with Fluoroscopy ([id number])
[2024-07-24 12:20] VITALS: BP 152/84; PULSE 96; RESP 16; O2SAT 92
--- OUTSIDE RECORDS SUMMARY | 2024-07-24 13:50 | XMS_ITS | Clinical Summary ---
Author Organization [employer] [facility] Address [address] [place] [address] Care Team Providers Care Occupational Health Rn Name Role Phone Carlos Cosby Primary Care Provider [phone]- [phone] Allergies No known active allergies Medications Medication [...] Subscriber ID Effective Dates Phone Address [facility] [id number] 2016-Present [address] [facility] [address] [place] [address] [facility] Care Teams Occupational Health Rn Relationship Specialty Start Date End Date Carlos Cosby PA [address] [place] [address] PCP - General Physician Form Setter/Driver 07/30/18
== END 2024-07-24 12:21 | disposition home or self-care (01) ==
LOC: HO.PMCPRC 11:12
PROVIDERS: PCP Physician Assistant; Visit Provider Internal Medicine
DX: M47.817 Spondylosis without myelopathy or radiculopathy, lumbosacral region (principal)
CPT/HCPCS: 64493; 64494

== ENCOUNTER 2024-08-01 11:15 | Outpatient (AMB) | payer MEDICARE, SELFPAY ==
--- NOTE | 2024-08-01 11:16 | MHC.OFFVIS ---
Vital Signs 08/01/24 11:19 Height 4 ft 11 in Weight 162 lb BMI 32.7 BP 149/69 H Blood Pressure Location Rt brachial Position Sitting Pulse 98 Pulse Source Pulse Oximeter Pulse Oximetry (%) 89 L Oxygen Delivery Method Room Air Intake Visit Reasons: s/p gonzales Dx L3-L4-DR-L5 MBB Intake Note: Pain today 0/10 Nonprofit Director Required: Yes Nonprofit Director Language: Newspaper Deliverer Services: Nonprofit Director Present Nonprofit Director Name: Stacy Information Interpreted: non-clinical & clinical Accompanied by: Self / Same As Patient Allergies morphine Allergy (Unknown, Verified 08/01/24 11:19) Unknown HPI Comments Details: Patient presents today for a follow up after Bilateral Diagnostic L3-L4-DR L5 MBBs on 07/24/[address] Arthur. Prior to these injections, the patient suffered from significant back discomfort, which has not returned since the procedure. She reports 100% pain relief since procedure with significant improvement in her symptoms, better functioning, sleep and increased lumbar spine ROM. Patient would like to pursue lumbar medial branch radiofrequency ablation for chronic axial low back pain given successful results with recent nerve blocks. We also discussed peripheral nerve stimulation therapy. Denies any recent cough, cold, infection, fever or any significant changes in medical history since last office visit. - Onset: Chronic back pain relieved after injection on 07/24. - Quality: Described as severe prior to injection but now fully relieved - Location: Lower back - Relief: Complete relief of pain after diagnostic injection. - Interference: No current interference with activities as pain is absent. Past Procedures: 07/24/24: Bilateral Diagnostic L3-L4-DRL5 MBBs- 100% pain relief for 1 week PRIOR: Patient is a pleasant 69 years female with prior history of osteoporosis, osteopenia, prior multilevel thoracic kyphoplasties (2017), COPD, O2 dependent, knee osteoarthritis, polymyalgia rheumatica, anxiety and obesity, presents today for initial evaluation of chronic low back pain with left sided radiculopathy. Reports recent fall in December and landed on her left side and had increased left shoulder pain and back pain with radiation into her left buttock and left leg pain. She was referred to our office by her PCP. Back pain is axial and also radiates into her left lower extremity in L5 distribution. She occasional experience right leg pain with tingling in L5-S1 distribution. Pain affects her daily activities and functioning, mobility, movements, sleep, caring for her disabled adult child at home, and quality of life. Pain increases with prolonged activities and especially with bending, lifting or cold. Denies previous spine surgery but reports having back injections over 20 years ago visit. SLR testing today significantly exacerbated her left radicular pain. Patient also became dyspneic with exertion during the back exam. She presented without oxygen today and had mild shows shortness of breath and coughing. Patient reports she left her O2 tank and walker in the car due to parking issues today. For pulse oximetry decreased to 86 and 97% on room air and she received supplemental O2 at 3 L via nasal cannula in the office with increased SaO2 to 92%. Patient has completed physical therapy for shoulder gait last year. Currently she can not pursue formal physical therapy due to doing in his charts significant low back pain, dyspnea on exertion and O2 dependency. Denies any fever or chills, abdominal or groin pain, bladder dysfunction or saddle anesthesia. Location: Lower back radiates down bilateral legs, left leg worse Duration: Chronic pain for many years, recent mechanical fall in December Characteristics of symptom or complaint: Aching, throbbing, shooting, radiating, spasming, cramping, N/T, burning Aggravating or associated factors: Prolonged standing, bending, walking, lifting Relieving factors: Tylenol extra-strength Treatment: Back injections >20 years ago, walker [facility] Medical History Personal history of nicotine dependence Fatigue Back pain Osteoporosis (~2015) Supplemental oxygen dependent PMR (polymyalgia rheumatica) HTN (hypertension) COPD (chronic obstructive pulmonary disease) Knee osteoarthritis Lumbar radiculopathy, chronic Obesity (BMI 30-39.9) Anxiety Surgical History History of kyphoplasty (~2017) History of tubal ligation Family History Father Heart disease Diabetes mellitus Mother Stroke Social History Housing: House Alcohol intake: never Patient Tobacco Use Status: Former Tobacco user (2019) Tobacco use type: Cigarette e-Cigarette/Vaping Use: Never Used Second Hand Smoke Exposure: No service: No Current occupational status: employed Cognitive needs: No Hearing needs: No Vision needs: No Review of Systems Const Details: - Musculoskeletal: Reports no pain since last week following injection. All systems reviewed & are unremarkable except as noted in HPI and below Physical Exam General: Appears afebrile. Alert and oriented. Mood and affect appropriate. Follows and participates in conversation appropriately. Respiratory effort is unlabored. No cough. O2 dependant. Able to transition from sit to stand unassisted. Uses walker or cane with ambulation. Ambulates with bilaterally normal heel strike and toe off, mildly antalgic gait. Back/Spine/Pelvis Cervical Spine: cervical ROM normal and No Cervical spine tenderness Thoracic/Lumbar Spine: thoracic and lumbar spine normal to inspection, Lasegue's sign negative, straight leg raise negative bilaterally, pain with thoraco-lumbar ROM (minimal with facet loading), thoraco-lumbar ROM limited, No thoracic spinal tenderness and No lumbar spinal tenderness Assessment & Plan Assessment & Plan (1) Lumbar back pain: Code(s): M54.50 - Low back pain, unspecified Category: Medical (2) Lumbosacral spondylosis: Code(s): M47.817 - Spondylosis without myelopathy or radiculopathy, lumbosacral region Category: Medical Plan For the patient's chronic axial low back pain, I proposed radiofrequency ablation as it provides lasting relief, aligning with her positive response to the diagnostic injections. We addressed insurance constraints that might necessitate repeating the injections. I explained the procedures extensively, and the patient wishes to proceed accordingly. We also discussed Sprint PNS trial as another treatment option, patient is hesitant towards implants. Schedule Bilateral L3-L4-L5 RFA with local, oral sedation and fluoroscopy. Expectations, risks and benefits were reviewed. Patient is aware she will be contacted to schedule this procedure. ll questions were answered and the patient is in agreement of plan. Follow-up after injections and sooner as needed.A Patient was informed and verbally consented to the use of an ambient scribe for clinic note documentation during this visit. Patient Instructions: I explained to the patient that the diagnostic medial branch blocks were successful and provided the foundation for considering further interventions like radiofrequency ablation (RFA). We discussed in depth how RFA could offer approximately a year of relief, a favorable alternative to the temporary nature of previously administered injections. The potential for insurance might require repeating the injection before RFA was clarified, and the patient understood this possibility. I presented the option of peripheral nerve stimulation; however, preference was toward proceeding with RFA given patient's lifestyle and multiple comorbidities. - Wait for insurance confirmation regarding a possible repeat injection. - Follow up with our office regarding scheduling for radiofrequency ablation. - Report any significant changes in symptoms or new pain. - Continue to avoid any activities previously known to exacerbate back pain. Coding Level of Care Code Est Pt Level 3 (36448) Complex EM visit Add On G2211 Diagnoses Lumbar back pain M54.50 Lumbosacral spondylosis M47.817
[2024-08-01 11:19] VITALS: BP 149/69; PULSE 98; O2SAT 89; BMI 32.7
--- OUTSIDE RECORDS SUMMARY | 2024-08-01 12:11 | XMS_ITS | Clinical Summary ---
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
== END 2024-08-01 11:27 | disposition home or self-care (01) ==
LOC: HO.PMC 11:16
PROVIDERS: PCP Physician Assistant; Referring Provider Nurse Practitioner Family; Visit Provider Nurse Practitioner Family
DX: M54.50 Low back pain, unspecified (principal); M47.817 Spondylosis without myelopathy or radiculopathy, lumbosacral region
CPT/HCPCS: 99213; G2211

== ENCOUNTER → 2024-08-01 11:15 | Outpatient (BNVA) | payer MEDICARE, SELFPAY | PROVIDERS: PCP Physician Assistant; Visit Provider Nurse Practitioner Family | DX: M54.50 Low back pain, unspecified (principal); M47.817 Spondylosis without myelopathy or radiculopathy, lumbosacral region | CPT/HCPCS: 99212 ==

== ENCOUNTER 2024-08-18 13:09 | Outpatient (AMB) | payer MEDICARE, MEDICAID, SELFPAY ==
--- OUTSIDE RECORDS SUMMARY | 2024-08-18 13:27 | XMS_ITS | Clinical Summary ---
Author Organization [facility] Address [address] [place] [address] Care Team Providers Care Credit Interviewer Name Role Phone Carlos Cosby Primary Care Provider [phone] Allergies No known active allergies Medications Medication [...] Group Subscriber ID Effective Dates Phone Address [facility] [id number] 2016-Present [address] [facility] [address] [place] [address] [facility] Care Teams Credit Interviewer Relationship Specialty Start Date End Date Carlos Cosby PA [address] [place] [address] PCP - General Physician Garage Door Opener Installer 07/30/18
--- NOTE | 2024-08-18 13:49 | MHC.OFFWIV ---
Intake Vital Signs 08/18/24 13:52 Weight 164 lb BP 122/80 Blood Pressure Location Lt brachial Position Sitting Pulse 97 Pulse Source Pulse Oximeter Pulse Oximetry (%) 98 Oxygen Delivery Method Room Air Intake Visit Reasons: EP-rt foot swollen and pain Intake Note: Patient here for right foot pain and swelling that has been present for about 5 days now. Patient Tobacco Use Status: Former Tobacco user (2019) Allergies morphine Allergy (Unknown, Verified 08/18/24 13:54) Unknown Do you need a note to return to daycare/school/sports/work: No HPI HPI Comments History of Present Illness Details History of Present Illness - The patient is a 69-year-old female with past med hx of HTN, COPD, back pain, osteoporosis and MIKAYLA presenting with right toe pain and swelling, which began five days prior. - She notes that the area is painful and swollen with tenderness but denies any previous similar episodes. - The toe feels hot - States this has never happened before Physical Exam General: Cooperative, healthy appearing, comfortable, no acute distress and well developed Orientation: Patient oriented x3 Limitations: No limitations Head: Normal to inspection Ears: Hearing grossly normal bilaterally Nose: Normal External nose present Face and sinus: Normal facial exam Eyes: Appearance normal, both eyes and all related structures Neck: Normal visual inspection and Yes full ROM Respiratory: Normal respiratory effort and able to speak in complete sentences. Skin: No rashes or lesions noted Neuro: Patient oriented x3 Extremities: Right MTP toe joint is swollen, tender, and feels hot to touch. [facility] Medical History Personal history of nicotine dependence Fatigue Back pain Osteoporosis (~2015) Supplemental oxygen dependent PMR (polymyalgia rheumatica) HTN (hypertension) COPD (chronic obstructive pulmonary disease) Knee osteoarthritis Lumbar radiculopathy, chronic Obesity (BMI 30-39.9) Anxiety Surgical History History of kyphoplasty (~2016) History of tubal ligation Family History Father Heart disease Diabetes mellitus Mother Stroke Social History Housing: House Alcohol intake: never Patient Tobacco Use Status: Former Tobacco user (2019) Tobacco use type: Cigarette e-Cigarette/Vaping Use: Never Used Second Hand Smoke Exposure: No service: No Current occupational status: employed Cognitive needs: No Hearing needs: No Vision needs: No Review of Systems Const All systems reviewed & are unremarkable except as noted in HPI and below Physical Exam Vital Signs: Last Vital Signs Pulse 97 08/18/24 13:52 BP 122/80 08/18/24 13:52 Pulse Ox 98 08/18/24 13:52 Oxygen Delivery Method Room Air 08/18/24 13:52 Assessment & Plan Assessment & Plan (1) Gout attack: Code(s): M10.9 - Gout, unspecified Qualifiers: Gout site: toe Encounter type: initial encounter Laterality: right Plan: The diagnosis of gout was made based on the clinical presentation in the right toe joint. Treatment with prednisone has been initiated at a dosage of two tablets taken once daily for five days. The medication is advised to be taken in the morning to minimize side effects impacting sleep patterns. Dietary management and information on avoiding uric acid elevation have been emphasized, with instruction to involve family support for additional informational resources. Follow-up should be pursued if symptoms persist beyond the treatment period. Patient was informed and verbally consented to the use of an ambient scribe for clinic note documentation during this visit. Medications: New prednisone 40 mg (2 x 20 mg) PO QAM 10 tabs 0RF Coding Level of Care Code Est Pt Level 3 (92157) Diagnoses Gout attack M10.9 Gout site: toe Encounter type: initial encounter Laterality: right
[2024-08-18 13:52] VITALS: BP 122/80; PULSE 97; O2SAT 98
== END 2024-08-18 14:34 | disposition home or self-care (01) ==
PROVIDERS: PCP Physician Assistant; Visit Provider Physician Assistant
DX: M10.9 Gout, unspecified (principal)

== ENCOUNTER → 2024-08-18 13:09 | Outpatient (BNVA) | payer MEDICARE, MEDICAID, SELFPAY | PROVIDERS: PCP Physician Assistant; Visit Provider Physician Assistant | DX: M10.9 Gout, unspecified (principal) | CPT/HCPCS: 99212 ==

== ENCOUNTER 2024-08-21 06:19 | Outpatient (REF) | payer MEDICARE, MEDICAID, SELFPAY | END 2024-08-21 06:20 | disposition home or self-care (01) | LOC: CF 06:19 | PROVIDERS: Visit Provider Internal Medicine | DX: Z13.89 Encounter for screening for other disorder (principal) ==

== ENCOUNTER 2024-09-04 06:23 | Outpatient (REF) | payer MEDICARE, MEDICAID, SELFPAY | END 2024-09-04 06:24 | disposition home or self-care (01) | LOC: CF 06:23 | PROVIDERS: Visit Provider Internal Medicine | DX: Z13.89 Encounter for screening for other disorder (principal) ==

== ENCOUNTER 2024-09-25 10:58 | Outpatient (AMB) | payer MEDICARE, MEDICAID, SELFPAY ==
[2024-09-25 11:16] VITALS: BP 140/64; PULSE 94; TEMP 36.3; O2SAT 91; BMI 34.0
--- NOTE | 2024-09-25 11:16 | A.OFFPC_ITS ---
Vital Signs 09/25/24 11:16 09/25/24 11:45 Height 4 ft 11 in Weight 168 lb 8 oz BMI 34.0 BP 140/64 H 120/60 Blood Pressure Location Lt brachial Position Sitting Pulse 94 Pulse Source Pulse Oximeter Temp 97.3 F Temp Source Temporal Artery Scan Pulse Oximetry (%) 91 L Oxygen Delivery Method Room Air Intake Visit Reasons: 3 Month F/U Buggy Driver Required: No Accompanied by: Self / Same As Patient Allergies morphine Allergy (Unknown, Verified 09/25/24 11:35) Unknown Medication List - Last Reconciled 09/25/24 by Carlos Cosby PA-C [(L)knee Orthosis, double upright, thigh and calf with adjustable flexion and extension joint As directed] acetaminophen ER 650 mg PO Q8H PRN albuterol sulfate 90 mcg/actuation 2 puffs inhalation Q4-6H PRN alendronate (Fosamax) 70 mg PO QWEEK 12 weeks amlodipine 5 mg PO DAILY 90 days baclofen 20 mg PO BEDTIME 90 days bisacodyl (Dulcolax (bisacodyl)) 10 mg (2 x 5 mg) PO ONCE 1 day blood pressure monitor As directed blood pressure test kit-medium As directed Breztri Aerosphere 160-9-4.8 mcg/actuation (phxyduzvos-frykvuvv-xknxzzbqkb) 2 inhalations inhalation BID 30 days NS lisinopril-hydrochlorothiazide 10-12.5 mg 1 tab PO DAILY Held on 07/14/24. Instructions: Doctor's Order loperamide 2 mg PO Q8H PRN 30 days magnesium oxide 400 mg PO DAILY 90 days [Oxygen -3LPM- B type cylinder As directed] prednisone 40 mg (2 x 20 mg) PO QAM psyllium husk (Metamucil) 1 tbsp PO DAILY PRN 30 days semaglutide (weight loss) (Wegovy) 0.25 mg (0.5 mL) subcut QWEEK 4 weeks sertraline 50 mg PO DAILY 90 days sodium polystyrene sulfonate 30 grams PO DAILY 2 days Tobacco use date assessed: 06/25/24 Fall risk assessment: 1 Fall in past year Last assessed Fall Risk: 09/25/24 Dental Screening Dental Screen Date: 09/25/24 HPI 3 Month F/U HPI Details Patient is a 69-year-old female here today for follow-up visit.? Patient's past medical history significant for hypertension, bilateral shoulder pain, COPD, lumbar Radiculopathy, obesity. Patient recently had an acute swelling and redness of her right foot. She was treated with prednisone and swelling and redness have reduced though still has some minimal pain even in the left foot. PLAN: Will supply patient with a few more days of prednisone to reduce inflammation Lumbar spine pain: patient has followed up with [facility] pain management and has gotten lumbar MRI that did show a total of 12 old compression fracture. Of note has a history of compression fracture in her thoracic spine. Pain management is considering lumbar spine injection patient is waiting to hear back on insurance coverage for this. .. Hypertension:? Patient's blood pressure acceptable today in office. Patient continues on lisinopril hydrochlorothiazide with good effect. .. COPD:? Was a former smoker.? Patient has followed up with pulmonology and was started on an oral and supplemental oxygen at 3 liters/minute.? 6 minute walking test showed hypoxemia and need for supplemental oxygen.? Has been started on maintenance inhaler and feels her breathing has been much improved. ? Has not been able to wear her supplemental oxygen due to still working in her O2 canister is too large.? Does use supplemental oxygen at home. patient?s COPD management has been complicated by challenges with oxygen equipment?specifically, the use of large B cylinder oxygen tanks that are too cumbersome to move easily in and out of her residence. She aims to acquire smaller, more portable cylinders to better manage her oxygen dependency. [facility] Medical History Personal history of nicotine dependence Fatigue Back pain Osteoporosis (~2015) Supplemental oxygen dependent PMR (polymyalgia rheumatica) HTN (hypertension) COPD (chronic obstructive pulmonary disease) Knee osteoarthritis Lumbar radiculopathy, chronic Obesity (BMI 30-39.9) Anxiety Surgical History History of kyphoplasty (~2017) History of tubal ligation Family History Father Heart disease Diabetes mellitus Mother Stroke Social History Housing: House Alcohol intake: never Patient Tobacco Use Status: Former Tobacco user (2020) Tobacco use type: Cigarette e-Cigarette/Vaping Use: Never Used Second Hand Smoke Exposure: No service: No Current occupational status: employed Cognitive needs: No Hearing needs: No Vision needs: No Questionnaire PHQ-9 Over the last 2 weeks, how often have you been bothered by any of the following problems? 1. Little interest or pleasure in doing things: not at all 2. Feeling down, depressed, or hopeless: not at all 3. Trouble falling or staying asleep, or sleeping too much: not at all 4. Feeling tired or having little energy: not at all 5. Poor appetite or overeating: not at all 6. Feeling bad about yourself - or that you are a failure or have let yourself or your family down: not at all 7. Trouble concentrating on things, such as reading the newspaper or watching television: not at all 8. Moving or speaking so slowly that other people could have noticed. Or the opposite - being so fidgety or restless that you have been moving around a lot more than usual: not at all 9. Thoughts that you would be better off or of hurting yourself in some way: not at all Total score: 0 Depression Screening Interpretation: Negative Depression Screening Done: Yes 04920 - PHQ-9 Billing: Yes Source: Developed by Drs. Lester Pompa, Angeli Huerta, Colin Hugo and colleagues, with an educational grupo from [employer]. Thrive Questionnaire Date Thrive assessed: 09/25/24 I am a: Patient What is your living situation today?: I have a steady place to live Within the past 12 months, did the food you bought not last and you didn't have the money to get more?: Never true Within the past 12 months, did you worry whether your food would run out before you got money to buy more?: Never true Do you have trouble paying for medicines?: No Do you have trouble getting transportation to medical appointments?: No Do you have trouble paying your heating and electricity bill?: No Do you have trouble taking care of your child, family member or friend?: No Do you have trouble with day-to-day activities such as bathing, preparing meals, shopping, managing finances, etc.?: No Are you currently unemployed and looking for a job?: No Are you interested in more education?: No Please select the resources that you would like help with: None Currently or been in a relationship where the following occur: No concerns reported THRIVE Score: 0 AUDIT C Alcohol Use Questionnaire (AUDIT-C) 1. How often do you have a drink containing alcohol?: Never 3. How often do you have six or more drinks on one occasion?: Never Total Score: 0 FANG-7 AMB Questionnaire FANG-7 Date FANG - 7 assessed: 09/25/24 Feeling nervous, anxious, or on edge: 0 = Not at all Not being able to stop or control worryin = Not at all Worrying too much about different things: 0 = Not at all Trouble relaxin = Not at all Being so restless that it is hard to sit still: 0 = Not at all Becoming easily annoyed or irritable: 0 = Not at all Feeling afraid as if something awful might happen: 0 = Not at all Total FANG-7 score (0-4 normal; 5-9 mild; 10-14 moderate; 15-21 severe): 0 Source: Developed by Drs. Lester Pompa, Angeli Huerta, Colin Hugo and colleagues, with an educational grupo from [employer]. FANG-7 Assessment Billing FANG-7 Assessment Tool: FANG-7 Assessment 13212 Review of Systems Const Denies headache(s) Eyes Denies loss of vision ENT Denies vertigo, Denies dizziness, Denies headache(s) and Denies sore throat Card Denies chest pain, Denies leg edema and Denies lightheadedness Resp Denies cough, Denies hemoptysis and Denies wheezing GI Denies abdominal pain, Denies melena, Denies constipation, Denies diarrhea and Denies vomiting Denies urinary frequency, Denies dysuria and Denies urinary urgency Musc Denies arthralgias, Denies joint swelling, Denies numbness and Denies tingling Neuro Denies Abnormal speech present, Denies behavioral changes, Denies vertigo, Govind es dizziness, Denies headache(s), Denies loss of vision, Denies memory loss, Denies numbness and Denies tingling Psych Denies anxiety, Denies behavioral changes, Denies depression, Denies memory loss and Denies panic attacks Herberth/Lymph Denies easy bleeding and Denies easy bruising Aller/Immun Denies wheezing Physical exam (Primary Care) Vital Signs: Last Vital Signs Temp 97.3 F 09/25/24 11:16 Pulse 94 09/25/24 11:16 BP 140/64 H 09/25/24 11:16 Pulse Ox 91 L 09/25/24 11:16 Oxygen Delivery Method Room Air 09/25/24 11:16 BMI result Body Mass Index 34.0 Tobacco/Smoking Status: Tobacco use Status Tobacco use date assessed 06/25/24 09/25/24 11:20 Patient Tobacco Use Status Former Tobacco user (2019) 09/25/24 11:20 Tobacco use type Cigarette 09/25/24 11:20 e-Cigarette/Vaping Use Never Used 09/25/24 11:20 PHQ-9: PHQ-9 Score PHQ-9: Total score 0 09/25/24 11:23 Depression Screening Interpretation: Negative Thrive Assessment: Date of Thrive Assessment Date Thrive assessed 09/25/24 09/25/24 11:23 Currently or been in a relationship where the following occur: No concerns reported Const General: healthy appearing, no acute distress, alert and awake Nutritional Appearance: well nourished Orientation/consciousness: oriented to person, oriented to place and oriented to time HENMT Ears: TM's normal bilaterally General nose exam: Normal nasal mucous membranes and turbinates present Eyes Conjunctivae: conjunctivae normal Sclerae: sclerae normal Pupils: Equal, round and reactive pupils present Neck Neck: Yes no lymphadenopathy and Yes no JVD Thyroid: Thyroid normal Carotids: no bruits Resp Effort & Inspection: normal respiratory effort and not tachypneic Auscultation: no crackles, no rales, no rhonchi and no wheezes Cardio Rate: regular rate Rhythm: regular rhythm Heart sounds: no murmurs and normal S1 and S2 GI Palpation (GI): Soft to palpation, nontender, no hepatomegaly and no splenomegaly Auscultation: normal bowel sounds Skin General skin exam: no rashes or lesions noted and dry skin Neuro General: oriented to person, oriented to place and oriented to time Cranial nerves: Yes Equal, round and reactive pupils present Speech: No Abnormal speech present Gait exam (Neuro): Normal gait present Motor exam (neuro): no tremor noted Extrem Right upper extremity: full ROM Left upper extremity: full ROM Right lower extremity: full ROM; no edema Left lower extremity: full ROM; no edema Psych Mental Status: mental status grossly normal Speech and movement: Normal speech and movement present Affect: normal affect Attitude: cooperative Thought process: Normal thought process present Coding Level of Care Code Est Pt Level 4 (85002) Diagnoses Chronic bronchitis, unspecified chronic bronchitis type J42 COPD type: chronic bronchitis Chronic bronchitis type: unspecified Low back pain radiating to left lower extremity M54.50; M79.605 Acute idiopathic gout of right foot M10.071 Gout site: foot Gout etiology: idiopathic Chronicity: acute Laterality: right Additional Codes FANG-7 Assessment Billing - FANG-7 Assessment Tool: FANG-7 Assessment 40907 ([id number]) PHQ-9 - 63447 - PHQ-9 Billing: Yes ([id number]) Assessment & Plan Assessment & Plan (1) COPD (chronic obstructive pulmonary disease): Code(s): J44.9 - Chronic obstructive pulmonary disease, unspecified Category: Medical Qualifiers: COPD type: chronic bronchitis Chronic bronchitis type: unspecified Qualified Code(s): J42 - Unspecified chronic bronchitis Plan: Patient followed by pulmonology and continues on maintenance inhalers. She promises to make appointment with pulmonology. (2) Low back pain radiating to left lower extremity: Code(s): M54.50 - Low back pain, unspecified; M79.605 - Pain in left leg Category: Medical Plan: As per HPI patient followed by pain management here in [place]. (3) Gout: Code(s): M10.9 - Gout, unspecified Category: Medical Qualifiers: Gout site: foot Gout etiology: idiopathic Chronicity: acute Laterality: right Qualified Code(s): M10.071 - Idiopathic gout, right ankle and foot Plan: As per HPI will supply patient with prednisone for few more days to reduce acute gout flare. Advised on low purine diet Orders: Orders Comprehensive Met. Panel Today E87.5 - Hyperkalemia Medications: Refilled prednisone 40 mg (2 x 20 mg) PO QAM 10 tabs 0RF M10.9 - Gout, unspecified
[2024-09-25 11:45] VITALS: BP 120/60
--- OUTSIDE RECORDS SUMMARY | 2024-09-25 12:36 | XMS_ITS | Clinical Summary ---
Author Organization [facility] Address [address] [place] [address] Care Team Providers Care Carton Filling Machine Operator Name Role Phone Carlos Cosby Primary Care Provider [phone]- [phone] Allergies No known active allergies Medications Medication [...] 95 08/28/2018 3:44 PM EDT Temperature 36.7 C (98.1 F) 08/28/2018 3:44 PM EDT Respiratory Rate - - Oxygen Saturation - [...] Osteoporosis Screening (DEXA Scan) 2020 Influenza Vaccine (Season Ended) 2024 RSV Adult > 60+ Yrs or Pregn ant (1 - 1-dose 75+ series) 2030 Hepatitis B Vaccines Aged Out No long er eligible based on patient's age to complete this topic RSV Ped < 20 months Aged Out No longe r eligible based on patient's age to complete this topic Insurance Payer Benefit Plan / Group Subscriber ID Effective Dates Phone Address [facility] [id number] 2016-Present 1 [facility] [address] [place] [phone] O Care Teams Carton Filling Machine Operator Relationship Specialty Start Date End Date Carlos Cosby PA [address] [place] [address] PCP - General Physician Budget Clerk 07/30/18
== END 2024-09-25 11:50 | disposition home or self-care (01) ==
LOC: HO.HMCH 10:59
PROVIDERS: PCP Physician Assistant; Visit Provider Physician Assistant
DX: J42 Unspecified chronic bronchitis (principal); M54.50 Low back pain, unspecified; M79.605 Pain in left leg; M10.071 Idiopathic gout, right ankle and foot

== ENCOUNTER → 2024-09-25 10:58 | Outpatient (BNVA) | payer MEDICARE, SELFPAY | PROVIDERS: PCP Physician Assistant; Visit Provider Physician Assistant | DX: J42 Unspecified chronic bronchitis (principal); M54.50 Low back pain, unspecified; M79.605 Pain in left leg; M10.071 Idiopathic gout, right ankle and foot | CPT/HCPCS: 96127; 99212 ==

== ENCOUNTER 2024-10-06 12:33 | Outpatient (REF) | payer MEDICARE, MEDICAID, SELFPAY ==
--- OUTSIDE RECORDS SUMMARY | 2024-10-06 13:00 | XMS_ITS | Clinical Summary ---
Author Organization [facility] Address [address] [place] [address] Care Team Providers Care Twist Tester Name Role Phone Carlos Cosby Primary Care Provider [phone]- [phone] Allergies No known active allergies Medications Medication [...] Subscriber ID Effective Dates Phone Address [facility] [id number] 2016-Present 1 [facility] [address] [place] [phone] O Care Teams Twist Tester Relationship Specialty Start Date End Date Carlos Cosby PA [address] [place] [address] PCP - General Physician Wellness Specialist 07/30/18
--- OUTSIDE RECORDS SUMMARY | 2024-10-06 13:00 | XMS_ITS | Patient Health Record ---
Author Organization [facility] Address [address] [place] [address] Care Team Providers Care Zinc Plater Name Role Phone Philip (RETIRED) Jason VENTURA Primary Care Provide r Unavailable Lester Hall Unavailable [phone] Reason For Referral No Information Plan Of Treatment No Information Insurance Providers Payer Name Payer Address Payer Phone Subscriber Number Group Number Insured Name Patient Relationship to Insured Coverage Start Date Coverage End Date [facility] [id number] [place] [id number] KEITH KRAFT Self - patient is the insured
[2024-10-06 14:03] LABS: Alanine Aminotransferase 18 U/L (0-31); Albumin Level 4.1 g/dL (3.5-5.0); Alkaline Phosphatase 75 U/L (39-117); Anion Gap 12 (12-20); Aspartate Amino Transferase 27 U/L (5-31); Bilirubin Total 0.3 mg/dL (0.0-1.0); Blood Urea Nitrogen 44 mg/dL (9-16); Carbon Dioxide 21 mmol/L (22-29); Chloride 111 mmol/L (96-108); Estimated Glomerular Filt Rate 45; Glucose Random 97 mg/dL (60-115); Potassium 5.7 mmol/L (3.3-5.1); Sodium 138 mmol/L (135-145); Total Protein 6.9 g/dL (6.5-8.0)
== END 2024-10-06 12:34 | disposition home or self-care (01) ==
LOC: HO.LAB 12:33
PROVIDERS: PCP Physician Assistant; Visit Provider Physician Assistant
DX: E78.5 Hyperlipidemia, unspecified (principal)
CPT/HCPCS: 36415; 80053

== ENCOUNTER 2024-11-10 13:02 | Outpatient (AMB) | payer MEDICARE, MEDICAID, SELFPAY ==
--- NOTE | 2024-11-10 13:10 | HO.NEPHOV_ITS ---
Vital Signs 11/10/24 13:11 Height 4 ft 11 in Weight 174 lb BMI 35.1 BP 117/58 L Blood Pressure Location Lt brachial Position Sitting Pulse 93 Pulse Source Pulse Oximeter Pulse Oximetry (%) 96 Oxygen Delivery Method Room Air Intake Visit Reasons: INP: Hyperkalemia/Conf [place] Roofer Required: Yes Information Interpreted: clinical only Accompanied by: Significant Other Allergies morphine Allergy (Unknown, Verified 11/10/24 13:13) Unknown Medication List - Last Reconciled 11/10/24 by Deniz Almaguer MD [(L)knee Orthosis, double upright, thigh and calf with adjustable flexion and extension joint As directed] acetaminophen ER 650 mg PO Q8H PRN albuterol sulfate 90 mcg/actuation 2 puffs inhalation Q4-6H PRN alendronate (Fosamax) 70 mg PO QWEEK 12 weeks amlodipine 5 mg PO DAILY 90 days baclofen 20 mg PO BEDTIME 90 days bisacodyl (Dulcolax (bisacodyl)) 10 mg (2 x 5 mg) PO ONCE 1 day blood pressure monitor As directed blood pressure test kit-medium As directed Breztri Aerosphere 160-9-4.8 mcg/actuation (fmmoofmtnl-lmrfpjcb-admitrsjvl) 2 inhalations PO BID NS lisinopril-hydrochlorothiazide 10-12.5 mg 1 tab PO DAILY Held on 07/14/24. Instructions: Doctor's Order loperamide 2 mg PO Q8H PRN 30 days magnesium oxide 400 mg PO DAILY 90 days [Oxygen -3LPM- B type cylinder As directed] prednisone 40 mg (2 x 20 mg) PO QAM psyllium husk (Metamucil) 1 tbsp PO DAILY PRN 30 days semaglutide (weight loss) (Wegovy) 0.25 mg (0.5 mL) subcut QWEEK 4 weeks sertraline 50 mg PO DAILY 90 days sodium polystyrene sulfonate 30 grams PO .Once weekly 4 weeks tizanidine 4 mg PO Q8H PRN Referred by: James [id number] Do you need a note to return to daycare/school/sports/work: No HPI Comments Details: The patient is a 69-year-old female presenting with hyperkalemia. The elevated potassium levels were identified by her primary care physician, prompting a referral to nephrology. She has been prescribed a Kayexalate to manage the potassium levels, which she has been taking as directed. The patient is currently on lisinopril/HCT. There is no significant history of nausea, vomiting, diarrhea, constipation, or leg swelling reported. She denies any current or past smoking habits, although she smoked before moving to her current location. She is on chronic oxygen therapy. COUNT INCLUDES THE [facility] Medical History Personal history of nicotine dependence Fatigue Back pain Osteoporosis (~2015) Supplemental oxygen dependent PMR (polymyalgia rheumatica) HTN (hypertension) COPD (chronic obstructive pulmonary disease) Knee osteoarthritis Lumbar radiculopathy, chronic Obesity (BMI 30-39.9) Anxiety Surgical History History of kyphoplasty (~2016) History of tubal ligation Family History Father Heart disease Diabetes mellitus Mother Stroke Social History Housing: House Alcohol intake: never Patient Tobacco Use Status: Former Tobacco user (2019) Tobacco use type: Cigarette e-Cigarette/Vaping Use: Never Used Second Hand Smoke Exposure: No service: No Current occupational status: employed Cognitive needs: No Hearing needs: No Vision needs: No Review of Systems Const Denies anorexia, Denies fever(s) and Denies weakness Eyes Denies blurry vision Card Denies no additional complaints and Denies dyspnea Resp Reports no additional complaints, Reports cough and Denies dyspnea GI Denies melena and Denies diarrhea Denies hematuria Musc Denies tingling Skin/Breast Denies rash Neuro Denies focal weakness, Denies tingling, Denies tremor(s) and Denies weakness Physical Exam Vital Signs: Last Vital Signs Pulse 93 11/10/24 13:11 BP 117/58 L 11/10/24 13:11 Pulse Ox 96 11/10/24 13:11 Oxygen Delivery Method Room Air 11/10/24 13:11 BMI result Body Mass Index 35.1 Const General: comfortable Nutritional Appearance: well nourished Orientation/consciousness: patient oriented x3 HEENT Head: No normal to inspection Mouth: moist mucous membranes Neck Neck: Yes supple and Yes no JVD Resp Auscultation: clear to auscultation bilaterally and no rales Cardio Jugular venous distension: no JVD Palpation: no palpable S3 and no palpable S4 Heart sounds: no rubs GI Palpation (GI): Soft to palpation and nontender Percussion: No Fluid wave present General: Yes no CVA tenderness Back/Spine/Pelvis Back: no CVA tenderness Skin General skin exam: no rashes or lesions noted Neuro General: patient oriented x3 Extrem General: Yes no pedal edema and No clubbing Results Reviewed Nephrology Results: Sodium, (135-145) 138 mmol/L 10/06/24 Potassium, (3.3-5.1) 5.7 mmol/L H 10/06/24 Chloride, (96-108) 111 mmol/L H 10/06/24 Carbon Dioxide, (22-29) 21 mmol/L L 10/06/24 BUN, (9-16) 44 mg/dL H 10/06/24 Creatinine, (0.5-1.4) 1.18 mg/dL 10/06/24 Calcium, (8.4-10.2) 9.0 mg/dL 10/06/24 Renal US 10/05/23 Assessment & Plan Assessment & Plan (1) HTN (hypertension): Code(s): I10 - Essential (primary) hypertension Category: Medical Qualifiers: Hypertension type: primary hypertension Qualified Code(s): I10 - Essential (primary) hypertension (2) Hyperkalemia: Code(s): E87.5 - Hyperkalemia Category: Medical Plan 69-year-old woman with COPD and hypertension with mild CKD has persistent hyperkalemia. She had hyperchloremic metabolic acidosis as well. Type 4 RTA is a consideration. Workup initiated for hyperkalemia. Recent renal ultrasonogram was reported as status post right nephrectomy however the CT scan done subsequently shows bilateral kidneys without any hydrone phrosis. She has mild CKD with age-related decline in EGFR. Recommendations Hold lisinopril for now. Replace lisinopril HCTZ with HCTZ 12.5 mg. Watch blood pressure. Encouraged to stay on low-potassium diet. If the serum potassium stays persistently elevated I would add Lokelma. Further management will be based on the outcome of the above baseline investigations. I will keep you updated. Orders: Orders Creatinine, 24 Hr Group Today E87.5 - Hyperkalemia, I10 - Essential (primary) hypertension Basic Metabolic Panel Today E87.5 - Hyperkalemia, I10 - Essential (primary) hypertension Potassium 24 Hr Urine Group Today E87.5 - Hyperkalemia, I10 - Essential (primary) hypertension US renal BI Today E87.5 - Hyperkalemia, I10 - Essential (primary) hypertension Medications: New hydrochlorothiazide 12.5 mg PO DAILY 30 caps 3RF Discontinued lisinopril-hydrochlorothiazide 10-12.5 mg Discontinued Reason: Doctor's Order 1 tab PO DAILY 90 tabs 0RF Coding Level of Care Code New Pt Level 4 (51500) Diagnoses Primary hypertension I10 Hypertension type: primary hypertension Hyperkalemia E87.5
[2024-11-10 13:11] VITALS: BP 117/58; PULSE 93; O2SAT 96; BMI 35.1
--- OUTSIDE RECORDS SUMMARY | 2024-11-10 13:22 | XMS_ITS | Patient Health Record ---
Author Organization [facility] Address [address] [place] [phone] Care Team Providers Care Meter Mechanic Name Role Phone Philip (RETIRED) Jason VENTURA Primary Care Provide r Unavailable Lester Hall Unavailable [phone] Reason For Referral No Information Plan Of Treatment No Information Insurance Providers Payer Name Payer Address Payer Phone Subscriber Number Group Number Insured Name Patient Relationship to Insured Coverage Start Date Coverage End Date [facility] [address] [place] [phone] [id number] KEITH KRAFT Self - patient is the insured
--- OUTSIDE RECORDS SUMMARY | 2024-11-10 13:22 | XMS_ITS | Clinical Summary ---
Author Organization [facility] Address [address] [place] [address] Care Team Providers Care Sponge Diver Name Role Phone Carlos Cosby Primary Care Provider [phone]- [phone] Allergies No known active allergies Medications Medication [...] Screening (DEXA Scan) 2020 Influenza Vaccine (#1) 2024 RSV Adult > 60+ Yrs or Pregn ant (1 - 1-dose 75+ series) 2030 Hepatitis B Vaccines Aged Out No long er eligible based on patient's age to complete this topic RSV Ped < 20 months Aged Out No longe r eligible based on patient's age to complete this topic Insurance Payer Benefit Plan / Group Subscriber ID Effective Dates Phone Address [facility] [id number] 2016-Present 1 [facility] [address] [place] [phone] O Care Teams Sponge Diver Relationship Specialty Start Date End Date Carlos Cosby PA [address] [place] [address] PCP - General Physician Senior Windows Systems Administrator 07/30/18
== END 2024-11-10 13:58 | disposition home or self-care (01) ==
LOC: HO.HKA 13:03
PROVIDERS: PCP Physician Assistant; Referring Provider Physician Assistant; Visit Provider Internal Medicine Hypertension Specialist
DX: I10 Essential (primary) hypertension (principal); E87.5 Hyperkalemia
CPT/HCPCS: 99204

== ENCOUNTER 2024-11-10 13:02 | Outpatient (REF) | payer MEDICARE, MEDICAID, SELFPAY ==
[2024-11-10 15:01] LABS: Anion Gap 12 (12-20); Blood Urea Nitrogen 30 mg/dL (9-16); Calcium 8.8 mg/dL (8.4-10.2); Carbon Dioxide 24 mmol/L (22-29); Chloride 110 mmol/L (96-108); Estimated Glomerular Filt Rate 52; Potassium 4.0 mmol/L (3.3-5.1); Sodium 142 mmol/L (135-145)
== END 2024-11-10 13:03 | disposition home or self-care (01) ==
LOC: HO.LAB 13:02
PROVIDERS: PCP Physician Assistant; Referring Provider Physician Assistant; Visit Provider Internal Medicine Hypertension Specialist
DX: E87.5 Hyperkalemia (principal); I10 Essential (primary) hypertension
CPT/HCPCS: 36415; 80048; 99202

== ENCOUNTER 2024-11-12 14:15 | Outpatient (REF) | payer MEDICARE, MEDICAID, SELFPAY ==
--- OUTSIDE RECORDS SUMMARY | 2024-11-12 14:45 | XMS_ITS | Clinical Summary ---
Author Organization [facility] Address [address] [place] [address] Care Team Providers Care Customer Accounts Advisor Name Role Phone Carlos Cosby Primary Care Provider [phone]- [phone] Allergies No known active allergies Medications Medication [...] Group Subscriber ID Effective Dates Phone Address [facility] [id number] 2016-Present 1 [facility] [address] [place] [phone] O Care Teams Customer Accounts Advisor Relationship Specialty Start Date End Date Carlos Cosby PA [address] [place] [address] PCP - General Physician Pickle Sorter 07/30/18
--- OUTSIDE RECORDS SUMMARY | 2024-11-12 14:45 | XMS_ITS | Patient Health Record ---
Author Organization [facility] Address [address] [place] [address] Care Team Providers Care Supervisor [place] Name Role Phone Philip (RETIRED) Jason VENTURA Primary Care Provide r Unavailable Lester Hall Unavailable [phone] Reason For Referral No Information Plan Of Treatment No Information Insurance Providers Payer Name Payer Address Payer Phone Subscriber Number Group Number Insured Name Patient Relationship to Insured Coverage Start Date Coverage End Date [facility] [address] [place] [phone] [id number] KEITH KRAFT Self - patient is the insured
[2024-11-12 14:57] LABS: Total Volume 24 Hour Urine 975 mL
[2024-11-12 15:08] LABS: Creatinine, mg/dL 80.50; Potassium, 24 Hr Urine 27.0 mmol/Day (25-125); Potassium, 24U 27.7 mmol/L; Total Volume 24 Hour Urine 975 mL
[2024-11-12 15:09] LABS: Creatinine, mg/dL 79.82
== END 2024-11-12 14:16 | disposition home or self-care (01) ==
LOC: HO.LNP 14:15
PROVIDERS: Visit Provider Internal Medicine Hypertension Specialist
DX: I10 Essential (primary) hypertension (principal); E87.5 Hyperkalemia
CPT/HCPCS: 82570; 84133

== ENCOUNTER 2024-11-17 14:34 | Outpatient (REF) | payer MEDICARE, MEDICAID, SELFPAY ==
--- NOTE | ~2024-11-17 | US_ITS ---
EXAMINATION: US RETROPERITONEAL LIMITED (RENAL ONLY) CLINICAL INFORMATION: Hypertension, essential. Hyperkalemia.. COMPARISON: Correlated to CT dated May 27, 2024. TECHNIQUE: Real-time ultrasound kidneys using grayscale technique. FINDINGS: RIGHT KIDNEY: 9 x 4 x 6 cm (SAG x AP x TRV). Isoechoic parenchyma. Renal cortical thinning. No gross hydronephrosis. There are multiple well-defined anechoic lesions without septations or flow on color Doppler interrogation in the upper pole, the largest measures 2.6 cm. LEFT KIDNEY: 8 x 4 x 5 cm (SAG x AP x TRV). Isoechoic parenchyma. Renal cortical thinning. No gross hydronephrosis. There is a 3.8 and a 1.2 cm anechoic lesions in the lower pole without flow on color Doppler interrogation or septations. US/US renal BI IMPRESSION: Bilateral renal cysts. No hydronephrosis. Consider medical renal disease in the correct clinical settings.. Electronically signed by: Lenny Still MD 11/17/2024 03:32 PM EDT
--- OUTSIDE RECORDS SUMMARY | 2024-11-17 15:01 | XMS_ITS | Patient Health Record ---
Author Organization [facility] Address [address] [place] [phone] Care Team Providers Care Clinical Trial Head Name Role Phone Philip (RETIRED) Jason VENTURA Primary Care Provide r Unavailable Lester Hall Unavailable [phone] Reason For Referral No Information Plan Of Treatment No Information Insurance Providers Payer Name Payer Address Payer Phone Subscriber Number Group Number Insured Name Patient Relationship to Insured Coverage Start Date Coverage End Date [facility] [address] [place] [phone] [id number] KEITH KRAFT Self - patient is the insured
--- OUTSIDE RECORDS SUMMARY | 2024-11-17 15:01 | XMS_ITS | Clinical Summary ---
Author Organization [facility] Address [address] [place] [address] Care Team Providers Care Contact Officer Name Role Phone Carlos Cosby Primary Care Provider +1- [phone] Allergies No known active allergies Medications Medication [...] Group Subscriber ID Effective Dates Phone Address [facility] [id number] 2016-Present 1 [facility] [address] [place] [phone] O Care Teams Contact Officer Relationship Specialty Start Date End Date Carlos Cosby PA [address] [place] [address] PCP - General Physician Supervisor Cellars 07/30/18
== END 2024-11-17 14:35 | disposition home or self-care (01) ==
LOC: HO.HMGCX 14:34
PROVIDERS: PCP Physician Assistant; Visit Provider Internal Medicine Hypertension Specialist
DX: I10 Essential (primary) hypertension (principal); E87.5 Hyperkalemia
CPT/HCPCS: 76775

== ENCOUNTER → 2024-11-17 15:09 | Outpatient (BNV) | payer MEDICARE, MEDICAID, SELFPAY | PROVIDERS: PCP Physician Assistant; Visit Provider Radiology Diagnostic Radiology | DX: N28.1 Cyst of kidney, acquired (principal) | CPT/HCPCS: 76775 ==

== ENCOUNTER 2024-12-29 11:40 | Outpatient (AMB) | payer MEDICARE, MEDICAID, SELFPAY ==
[2024-12-29 11:49] VITALS: BP 118/68; PULSE 101; O2SAT 83; BMI 34.9
--- NOTE | 2024-12-29 11:49 | HO.NEPHOV_ITS ---
Vital Signs 12/29/24 11:49 Height 4 ft 11 in Weight 173 lb BMI 34.9 BP 118/68 Blood Pressure Location Rt brachial Position Standing Pulse 101 H Pulse Source Pulse Oximeter Pulse Oximetry (%) 83 L Oxygen Delivery Method Room Air Intake Visit Reasons: R/S 12/16/2024-Conf Conveyor Tender Required: Yes Conveyor Tender Name: Oswald [id number] Accompanied by: Spouse Allergies morphine Allergy (Unknown, Verified 12/29/24 11:51) Unknown Medication List - Last Reconciled 12/29/24 by Deniz Almaguer MD [(L)knee Orthosis, double upright, thigh and calf with adjustable flexion and extension joint As directed] acetaminophen ER 650 mg PO Q8H PRN albuterol sulfate 90 mcg/actuation 2 puffs inhalation Q4-6H PRN alendronate (Fosamax) 70 mg PO QWEEK 12 weeks amlodipine 5 mg PO DAILY 90 days baclofen 20 mg PO BEDTIME 90 days bisacodyl (Dulcolax (bisacodyl)) 10 mg (2 x 5 mg) PO ONCE 1 day blood pressure monitor As directed blood pressure test kit-medium As directed Breztri Aerosphere 160-9-4.8 mcg/actuation (epzahwnabg-eilrbxlf-awydbjznpc) 2 inhalations PO BID NS hydrochlorothiazide 12.5 mg PO DAILY loperamide 2 mg PO Q8H PRN 30 days magnesium oxide 400 mg PO DAILY 90 days magnesium oxide 400 mg PO DAILY [Oxygen -3LPM- B type cylinder As directed] prednisone 40 mg (2 x 20 mg) PO QAM psyllium husk (Metamucil) 1 tbsp PO DAILY PRN 30 days semaglutide (weight loss) (Wegovy) 0.25 mg (0.5 mL) subcut QWEEK 4 weeks sertraline 50 mg PO DAILY 90 days tizanidine 4 mg PO Q8H PRN HPI Comments Details: The patient is a 69-year-old female presenting with hyperkalemia. The elevated potassium levels were identified by her primary care physician, prompting a referral to nephrology. She has been prescribed a Kayexalate to manage the potassium levels, which she has been taking as directed. The patient is currently on lisinopril/HCT. There is no significant history of nausea, vomiting, diarrhea, constipation, or leg swelling reported. She denies any current or past smoking habits, although she smoked before moving to her current location. She is on chronic oxygen therapy. 12/29/24 - The patient is a 69-year-old female presenting with follow-up on below knee amputation and hyperkalemia management. - Below Knee Amputation (BKA): Follow-up with no complications noted. - Hyperkalemia: Potassium normalized after discontinuing lisinopril. - Hypertension: Blood pressure well-controlled. - Obesity: On Wegovy, weight reduced from 178 to 173 pounds. - Type 2 Diabetes Mellitus: Blood sugar stable. [facility] Medical History Personal history of nicotine dependence Fatigue Back pain Osteoporosis (~2015) Supplemental oxygen dependent PMR (polymyalgia rheumatica) HTN (hypertension) COPD (chronic obstructive pulmonary disease) Knee osteoarthritis Lumbar radiculopathy, chronic Obesity (BMI 30-39.9) Anxiety Surgical History History of kyphoplasty (~2016) History of tubal ligation Family History Father Heart disease Diabetes mellitus Mother Stroke Social History Housing: House Alcohol intake: never Patient Tobacco Use Status: Former Tobacco user Tobacco use type: Cigarette e-Cigarette/Vaping Use: Never Used Second Hand Smoke Exposure: No service: No Current occupational status: employed Cognitive needs: No Hearing needs: No Vision needs: No Physical Exam Vital Signs: Last Vital Signs Pulse 101 H 12/29/24 11:49 BP 118/68 12/29/24 11:49 Pulse Ox 83 L 12/29/24 11:49 Oxygen Delivery Method Room Air 12/29/24 11:49 BMI result Body Mass Index 34.9 Const General: comfortable Nutritional Appearance: well nourished Orientation/consciousness: patient oriented x3 HEENT Head: No normal to inspection Mouth: moist mucous membranes Neck Neck: Yes supple and Yes no JVD Resp Auscultation: clear to auscultation bilaterally and no rales Cardio Jugular venous distension: no JVD Palpation: no palpable S3 and no palpable S4 Heart sounds: no rubs GI Palpation (GI): Soft to palpation and nontender Percussion: No Fluid wave present General: Yes no CVA tenderness Back/Spine/Pelvis Back: no CVA tenderness Skin General skin exam: no rashes or lesions noted Neuro General: patient oriented x3 Extrem General: Yes no pedal edema and No clubbing Results Reviewed Results Reviewed: Nov 2024 USG RIGHT KIDNEY: 9 x 4 x 6 cm (SAG x AP x TRV). Isoechoic parenchyma. Renal cortical thinning. No gross hydronephrosis. There are multiple well-defined anechoic lesions without septations or flow on color Doppler interrogation in the upper pole, the largest measures 2.6 cm. LEFT KIDNEY: 8 x 4 x 5 cm (SAG x AP x TRV). Isoechoic parenchyma. Renal cortical thinning. No gross hydronephrosis. There is a 3.8 and a 1.2 cm anechoic lesions in the lower pole without flow on color Doppler interrogation or septations. US/US renal BI IMPRESSION: Bilateral renal cysts. No hydronephrosis. Consider medical renal disease in the correct clinical settings.. Nephrology Results: Sodium, (135-145) 142 mmol/L 11/10/24 Potassium, (3.3-5.1) 4.0 mmol/L Δ 11/10/24 Chloride, (96-108) 110 mmol/L H 11/10/24 Carbon Dioxide, (22-29) 24 mmol/L 11/10/24 BUN, (9-16) 30 mg/dL H 11/10/24 Creatinine, (0.5-1.4) 1.05 mg/dL 11/10/24 Calcium, (8.4-10.2) 8.8 mg/dL 11/10/24 Renal US 11/17/24 Assessment & Plan Assessment & Plan (1) HTN (hypertension): Code(s): I10 - Essential (primary) hypertension Category: Medical Qualifiers: Hypertension type: primary hypertension Qualified Code(s): I10 - Essential (primary) hypertension (2) Hyperkalemia: Code(s): E87.5 - Hyperkalemia Category: Medical Plan 69-year-old woman with COPD and hypertension with mild CKD has persistent hyperkalemia. She had hyperchloremic metabolic acidosis as well. Type 4 RTA is a consideration. Workup initiated for hyperkalemia. Recent renal ultrasonogram was reported as status post right nephrectomy however the CT scan done subsequently shows bilateral kidneys without any hydronephrosis. She has mild CKD with age-related decline in EGFR. Recommendations Hold lisinopril for now. Replace lisinopril HCTZ with HCTZ 12.5 mg. Watch blood pressure. Encouraged to stay on low-potassium diet. If the serum potassium stays persistently elevated I would add Lokelma. Further management will be based on the outcome of the above baseline investigations. I will keep you updated. 12/29/24 After discontinuing lisinopril from a renal function has returned to baseline with a creatinine of 1.1. Renal ultrasonogram is unremarkable both kidneys were present with renal cyst Serum potassium has normalized. No need for Kayexalate. Blood pressure is well controlled. Agree with Wegovy and weight loss. Today did not make any changes. Medications: Discontinued sodium polystyrene sulfonate Discontinued Reason: Patient no longer taking 30 grams PO .Once weekly 4 weeks 453.6 grams 1RF E87.5 - Hyperkalemia Patient Instructions: - Continue current medications as prescribed. - No need for potassium powder; potassium levels are stable. - Maintain Wegovy for weight management and monitor weight regularly. - Follow up in six months for routine check-up. Patient was informed and verbally consented to the use of an ambient scribe for clinic note documentation during this visit. Coding Level of Care Code Est Pt Level 4 (66066) Diagnoses Primary hypertension I10 Hypertension type: primary hypertension Hyperkalemia E87.5
--- OUTSIDE RECORDS SUMMARY | 2024-12-29 14:24 | XMS_ITS | Clinical Summary ---
Author Organization [facility] Address [address] [place] [address] Care Team Providers Care Cook Roast Name Role Phone Carlos Cosby Primary Care Provider [phone]- [phone] Allergies No known active allergies Medications Medication [...] Group Subscriber ID Effective Dates Phone Address [facility] [id number] 2016-Present 1 [facility] [address] [place] [phone] O Care Teams Cook Roast Relationship Specialty Start Date End Date Carlos Cosby PA [address] [place] [address] PCP - General Physician Country Manager 07/30/18
--- OUTSIDE RECORDS SUMMARY | 2024-12-29 14:24 | XMS_ITS | Patient Health Record ---
Author Organization [facility] Address [address] [place] [phone] Care Team Providers Care Psychiatric Technician Assistant Name Role Phone Philip (RETIRED) Jason VENTURA Primary Care Provide r Unavailable Lester Hall Unavailable [phone] Reason For Referral No Information Plan Of Treatment No Information Insurance Providers Payer Name Payer Address Payer Phone Subscriber Number Group Number Insured Name Patient Relationship to Insured Coverage Start Date Coverage End Date [facility] [address] [place] [phone] [id number] KEITH KRAFT Self - patient is the insured
== END 2024-12-29 12:01 | disposition home or self-care (01) ==
LOC: HO.HKA 11:40
PROVIDERS: PCP Physician Assistant; Visit Provider Internal Medicine Hypertension Specialist
DX: I10 Essential (primary) hypertension (principal); E87.5 Hyperkalemia
CPT/HCPCS: 99214

== ENCOUNTER → 2024-12-29 11:40 | Outpatient (BNVA) | payer MEDICARE, MEDICAID, SELFPAY | PROVIDERS: PCP Physician Assistant; Visit Provider Internal Medicine Hypertension Specialist | DX: E87.5 Hyperkalemia (principal); I10 Essential (primary) hypertension; Z79.899 Other long term (current) drug therapy | CPT/HCPCS: 99212 ==

== ENCOUNTER 2024-12-30 11:03 | Outpatient (AMB) | payer MEDICARE, SELFPAY ==
--- NOTE | 2024-12-30 11:11 | MHC.PC.OV ---
Vital Signs 12/30/24 11:13 Height 4 ft 11 in Weight 172 lb 4 oz BMI 34.8 BP 100/60 Blood Pressure Location Lt brachial Position Sitting Pulse 85 Pulse Source Pulse Oximeter Temp 97.3 F Temp Source Temporal Artery Scan Pulse Oximetry (%) 95 Oxygen Delivery Method Room Air Intake Visit Reasons: f/u COPD/ HTN Intake Note: Patient is here to follow up on COPD, HTN. Indoor Plant Technician Required: No Rehabilitation Therapist: Not Required per policy Accompanied by: Self / Same As Patient Allergies morphine Allergy (Unknown, Verified 12/30/24 11:54) Unknown lisinopril Adverse Reaction (Intermediate, Verified 12/30/24 12:05) Hyperkalemia Medication List - Last Reconciled 12/30/24 by Carlos Cosby PA-C [(L)knee Orthosis, double upright, thigh and calf with adjustable flexion and extension joint As directed] acetaminophen ER 650 mg PO Q8H PRN albuterol sulfate 90 mcg/actuation 2 puffs inhalation Q4-6H PRN alendronate (Fosamax) 70 mg PO QWEEK 12 weeks amlodipine 5 mg PO DAILY 90 days bisacodyl (Dulcolax (bisacodyl)) 10 mg (2 x 5 mg) PO ONCE 1 day blood pressure monitor As directed blood pressure test kit-medium As directed Breztri Aerosphere 160-9-4.8 mcg/actuation (lgfeznwrzn-lvimtjan-djialjiylk) 2 inhalations PO BID NS hydrochlorothiazide 12.5 mg PO DAILY hydrochlorothiazide 12.5 mg PO DAILY loperamide 2 mg PO Q8H PRN 30 days magnesium oxide 400 mg PO DAILY [Oxygen -3LPM- B type cylinder As directed] prednisone 40 mg (2 x 20 mg) PO QAM psyllium husk (Metamucil) 1 tbsp PO DAILY PRN 30 days semaglutide (weight loss) (Wegovy) 0.25 mg (0.5 mL) subcut QWEEK 4 weeks sertraline 50 mg PO DAILY 90 days Tobacco use date assessed: 12/30/24 Fall risk assessment: No Falls in past year Last assessed Fall Risk: 12/30/24 Dental Screening Dental Screen Date: 09/25/24 HPI f/u COPD/ HTN HPI Details Patient is a 69-year-old female here today for follow-up visit.? Patient's past medical history significant for hypertension, bilateral shoulder pain, COPD, lumbar Radiculopathy, obesity. Obesity: Patient has recently started Wegovy and has not noted which may loss on lower doses of Wegovy. She is interested appetite treating her dose to 1 mg weekly. .. Hyperkalemia: Has followed up with Nephrology has stopped lisinopril and kidney function and potassium has normalized. Will continue on hydrochlorothiazide .. Hypertension:? Patient's blood pressure acceptable today in office. Her lisinopril has been held and renal function is better. Continues with hydrochlorothiazide .. COPD:? Was a former smoker.? Patient has followed up with pulmonology and was started on an oral and supplemental oxygen at 3 liters/minute.? 6 minute walking test showed hypoxemia and need for supplemental oxygen.? Has been started on maintenance inhaler and feels her breathing has been much improved. ? Has not been able to wear her supplemental oxygen due to still working in her O2 canister is too large.? Does use supplemental oxygen at home. . COUNTS INCLUDE 234 BEDS AT THE [facility] Medical History Personal history of nicotine dependence Fatigue Back pain Osteoporosis (~2015) Supplemental oxygen dependent PMR (polymyalgia rheumatica) HTN (hypertension) COPD (chronic obstructive pulmonary disease) Knee osteoarthritis Lumbar radiculopathy, chronic Obesity (BMI 30-39.9) Anxiety Surgical History History of kyphoplasty (~2017) History of tubal ligation Family History Father Heart disease Diabetes mellitus Mother Stroke Social History Housing: House Alcohol intake: never Patient Tobacco Use Status: Former Tobacco user Tobacco use type: Cigarette e-Cigarette/Vaping Use: Never Used Second Hand Smoke Exposure: Yes service: No Current occupational status: employed Cognitive needs: No Hearing needs: No Vision needs: No Questionnaire Thrive Questionnaire Date Thrive assessed: 09/25/24 FANG-7 AMB Questionnaire FANG-7 Date FANG - 7 assessed: 09/25/24 Source: Developed by Drs. Lester Pompa, Angeli Huerta, Colin Hugo and colleagues, with an educational grupo from [employer]. Review of Systems Const Denies headache(s) Eyes Denies loss of vision ENT Denies vertigo, Denies dizziness, Denies headache(s) and Denies sore throat Card Denies chest pain, Denies leg edema and Denies lightheadedness Resp Denies cough, Denies hemoptysis and Denies wheezing GI Denies abdominal pain, Denies melena, Denies constipation, Denies diarrhea and Denies vomiting Denies urinary frequency, Denies dysuria and Denies urinary urgency Musc Denies arthralgias, Denies joint swelling, Denies numbness and Denies tingling Neuro Denies Abnormal speech present, Denies behavioral changes, Denies vertigo, Denies dizziness, Denies headache(s), Denies loss of vision, Denies memory loss, Denies numbness and Denies tingling Psych Denies anxiety, Denies behavioral changes, Denies depression, Denies memory loss and Denies panic attacks Herberth/Lymph Denies easy bleeding and Denies easy bruising Aller/Immun Denies wheezing Physical exam (Primary Care) Vital Signs: Last Vital Signs Temp 97.3 F 12/30/24 11:13 Pulse 85 12/30/24 11:13 BP 100/60 12/30/24 11:13 Pulse Ox 95 12/30/24 11:13 Oxygen Delivery Method Room Air 12/30/24 11:13 BMI result Body Mass Index 34.8 BMI Assessment/Plan discussion: High BMI High, discussed plan: lifestyle, weight reduction, dietary and physical activity Tobacco/Smoking Status: Tobacco use Status Tobacco use date assessed 12/30/24 12/30/24 11:14 Patient Tobacco Use Status Former Tobacco user 12/30/24 11:14 Tobacco use type Cigarette 12/30/24 11:14 e-Cigarette/Vaping Use Never Used 12/30/24 11:14 Thrive Assessment: Date of Thrive Assessment Date Thrive assessed 09/25/24 12/30/24 11:14 Const General: healthy appearing, no acute distress, alert and awake Nutritional Appearance: well nourished Orientation/consciousness: oriented to person, oriented to place and oriented to time HENMT Ears: TM's normal bilaterally General nose exam: Normal nasal mucous membranes and turbinates present Eyes Conjunctivae: conjunctivae normal Sclerae: sclerae normal Pupils: Equal, round and reactive pupils present Neck Neck: Yes no lymphadenopathy and Yes no JVD Thyroid: Thyroid normal Carotids: no bruits Resp Effort & Inspection: normal respiratory effort and not tachypneic Auscultation: no crackles, no rales, no rhonchi and no wheezes Cardio Rate: regular rate Rhythm: regular rhythm Heart sounds: no murmurs and normal S1 and S2 GI Palpation (GI): Soft to palpation, nontender, no hepatomegaly and no splenomegaly Auscultation: normal bowel sounds Skin General skin exam: no rashes or lesions noted and dry skin Neuro General: oriented to person, oriented to place and oriented to time Cranial nerves: Yes Equal, round and reactive pupils present Speech: No Abnormal speech present Gait exam (Neuro): Normal gait present Motor exam (neuro): no tremor noted Extrem Right upper extremity: full ROM Left upper extremity: full ROM Right lower extremity: full ROM; no edema Left lower extremity: full ROM; no edema Psych Mental Status: mental status grossly normal Speech and movement: Normal speech and movement present Affect: normal affect Attitude: cooperative Thought process: Normal thought process present Coding Level of Care Code Est Pt Level 4 (06373) Diagnoses Class 1 obesity E66.811 Chronic bronchitis, unspecified chronic bronchitis type J42 COPD type: chronic bronchitis Chronic bronchitis type: unspecified Primary hypertension I10 Hypertension type: primary hypertension Mixed hyperlipidemia E78.2 Hyperlipidemia type: mixed hyperlipidemia Assessment & Plan Assessment & Plan (1) Class 1 obesity: Code(s): E66.811 - Obesity, class 1 Category: Medical Plan: Patient reports she has been having difficulty losing weight and would like to try medication to help her lose weight. She has not been able to be physically active due to her chronic lumbar spine pain. Patient has been on Wegovy over the last few weeks in his interested in increasing her dose to 1 mg weekly for weight loss. Unfortunately has not been able to be physically active due to her back issues in her COPD. (2) COPD (chronic obstructive pulmonary disease): Code(s): J44.9 - Chronic obstructive pulmonary disease, unspecified Category: Medical Qualifiers: COPD type: chronic bronchitis Chronic bronchitis type: unspecified Qualified Code(s): J42 - Unspecified chronic bronchitis Plan: Patient is a former smoker Patient followed by pulmonology and continues on maintenance inhalers. For the most part she feels her pulmonary status is stable She promises to make appointment with pulmonology. (3) HTN (hypertension): Code(s): I10 - Essential (primary) hypertension Category: Medical Qualifiers: Hypertension type: primary hypertension Qualified Code(s): I10 - Essential (primary) hypertension Plan: Patient's blood pressure acceptable today in office. Will continue her current dose of hydrochlorothiazide with goal blood pressure to remain below 140/90. Of note lisinopril has been held due to hyperkalemia. (4) HLD (hyperlipidemia): Code(s): E78.5 - Hyperlipidemia, unspecified Category: Medical Qualifiers: Hyperlipidemia type: mixed hyperlipidemia Qualified Code(s): E78.2 - Mixed hyperlipidemia Plan: Patient's most recent lipid panel showing elevated total cholesterol and LDL. She would like to work on lifestyle and dietary modifications. She hopes to lose with GLP with to help reduce her cholesterol. Orders: Orders Complete Blood Count no Diff Today J42 - Unspecified chronic bronchitis Comprehensive [place]. Panel Fast Today I10 - Essential (primary) hypertension Lipid Panel Today E78.9 - Disorder of lipoprotein metabolism, unspecified Medications: New semaglutide (weight loss) (Wegovy) 1 mg (0.5 mL) subcut Q7D 2 mL 1RF 4 weeks E66.811 - Obesity, class 1, E78.2 - Mixed hyperlipidemia, I10 - Essential (primary) hypertension Refilled hydrochlorothiazide 12.5 mg PO DAILY 30 caps 3RF sertraline 50 mg PO DAILY 90 caps 2RF 90 days F41.9 - Anxiety disorder, unspecified
[2024-12-30 11:13] VITALS: BP 100/60; PULSE 85; TEMP 36.3; O2SAT 95; BMI 34.8
--- OUTSIDE RECORDS SUMMARY | 2024-12-30 13:46 | XMS_ITS | Patient Health Record ---
Author Organization [facility] Address [address] [place] [phone] Care Team Providers Care Water Purification Chemist Name Role Phone Philip (RETIRED) Jason VENTURA Primary Care Provide r Unavailable Lester Hall Unavailable [phone] Reason For Referral No Information Plan Of Treatment No Information Insurance Providers Payer Name Payer Address Payer Phone Subscriber Number Group Number Insured Name Patient Relationship to Insured Coverage Start Date Coverage End Date [facility] [id number] [place] [phone] [id number] KEITH KRAFT Self - patient is the insured
--- OUTSIDE RECORDS SUMMARY | 2024-12-30 13:46 | XMS_ITS | Clinical Summary ---
Author Organization [facility] Address [address] [place] [address] Care Team Providers Care Search Engine Marketing Strategist Name Role Phone Carlos Cosby Primary Care Provider +1- [phone] Allergies No known active allergies Medications Medication [...] Group Subscriber ID Effective Dates Phone Address [facility] [id number] 2016-Present 1 [facility] [address] [place] [phone] O Care Teams Search Engine Marketing Strategist Relationship Specialty Start Date End Date Carlos Cosby PA [address] [place] [address] PCP - General Physician Fisher Pot 07/30/18
== END 2024-12-30 12:04 | disposition home or self-care (01) ==
LOC: HO.HMCH 11:04
PROVIDERS: PCP Physician Assistant; Visit Provider Physician Assistant
DX: J42 Unspecified chronic bronchitis (principal); E66.811 Obesity, class 1; I10 Essential (primary) hypertension; Z68.34 Body mass index [BMI] 34.0-34.9, adult; E78.2 Mixed hyperlipidemia

== ENCOUNTER → 2024-12-30 11:03 | Outpatient (BNVA) | payer MEDICARE, SELFPAY | PROVIDERS: PCP Physician Assistant; Visit Provider Physician Assistant | DX: E66.811 Obesity, class 1 (principal); Z68.34 Body mass index [BMI] 34.0-34.9, adult; J42 Unspecified chronic bronchitis; I10 Essential (primary) hypertension; E78.2 Mixed hyperlipidemia; Z71.3 Dietary counseling and surveillance | CPT/HCPCS: 99212 ==

== ENCOUNTER 2025-02-26 10:35 | Outpatient (AMB) | payer MEDICARE, MEDICAID, SELFPAY ==
[2025-02-26 10:51] VITALS: BP 108/60; PULSE 93; O2SAT 91; BMI 33.7
--- NOTE | 2025-02-26 10:51 | A.OFFVIS_ITS ---
Vital Signs 02/26/25 10:51 Height 4 ft 11 in Weight 167 lb BMI 33.7 BP 108/60 Blood Pressure Location Lt brachial Position Sitting Pulse 93 Pulse Source Pulse Oximeter Pulse Oximetry (%) 91 L Oxygen Delivery Method Room Air Intake Visit Reasons: COPD Sql Server Dba Developer Required: Yes Sql Server Dba Developer Name: Nanci Sheth Tonya Information Interpreted: non-clinical & clinical Allergies morphine Allergy (Unknown, Verified 12/30/24 11:54) Unknown lisinopril Adverse Reaction (Intermediate, Verified 12/30/24 12:05) Hyperkalemia HPI HPI COPD: Details: 69-year-old lady, active 30+ pack-year smoker with underlying severe COPD supplemental oxygen 2-3 L dependent, suboptimally compliant with oxygen therapy.? Patient previously used BrezTri and albuterol MDI with reasonable control of her symptoms, and no recent exacerbations. Patient wanted to have POC evaluation, which was performed during this office visit and showed that POC is insufficient for her underlying supplemental oxygen needs. Patient continues to complain of intermittent dyspnea on exertion. [facility] Medical History Personal history of nicotine dependence Fatigue Back pain Osteoporosis (~2015) Supplemental oxygen dependent PMR (polymyalgia rheumatica) HTN (hypertension) COPD (chronic obstructive pulmonary disease) Knee osteoarthritis Lumbar radiculopathy, chronic Obesity (BMI 30-39.9) Anxiety Surgical History History of kyphoplasty (~2017) History of tubal ligation Family History Father Heart disease Diabetes mellitus Mother Stroke Social History Housing: House Alcohol intake: never Patient Tobacco Use Status: Former Tobacco user Tobacco use type: Cigarette e-Cigarette/Vaping Use: Never Used Second Hand Smoke Exposure: Yes service: No Current occupational status: employed Cognitive needs: No Hearing needs: No Vision needs: No Review of Systems Const Denies daytime sleepiness, Denies excessive sweating, Denies fatigue, Denies fever(s), Denies lethargy, Denies malaise, Denies night sweats, Denies snoring and Denies weight loss Eyes Denies blurry vision and Denies itchy eyes ENT Denies nasal congestion, Denies post nasal drip, Denies sinus pain, Denies sinus pressure and Denies other ( Thrush) Card Denies chest pain, Denies pedal edema, Denies dyspnea, Reports dyspnea on exertion, Denies orthopnea and Denies paroxysmal nocturnal dyspnea Resp Denies cough, Denies hemoptysis, Denies excessive phlegm production, Denies dyspnea, Reports dyspnea on exertion, Denies snoring and Denies wheezing GI Denies abdominal pain and Denies heartburn Musc Denies myalgias, Denies arthralgias and Denies joint swelling Skin/Breast Denies rash Neuro Denies memory loss and Denies seizure-like activity Psych Denies abnormal sleep pattern, Denies anxiety and Denies memory loss Endo Denies excessive sweating, Denies fatigue and Denies heat intolerance Herberth/Lymph Denies easy bruising Aller/Immun Denies itchy eyes, Denies seasonal rhinorrhea and Denies wheezing Physical Exam Vital Signs: Last Vital Signs Pulse 93 02/26/25 10:51 BP 108/60 02/26/25 10:51 Pulse Ox 91 L 02/26/25 10:51 Oxygen Delivery Method Room Air 02/26/25 10:51 BMI result Body Mass Index 33.7 Const General: no acute distress and alert Nutritional Appearance: obese Orientation/consciousness: Other orientation findings ( oriented) HEENT Head: Yes atraumatic Eyes General: appearance normal, both eyes and all related structures Sclerae: sclerae normal EOM: EOMs intact bilaterally Neck Neck: Yes supple Lymphatic: no lymphadenopathy noted Resp Effort & Inspection: normal respiratory effort and no use of accessory muscles Auscultation: clear to auscultation bilaterally Cardio Rate: regular rate Rhythm: regular rhythm Heart sounds: no gallops, no murmurs and no rubs Skin General skin exam: other ( warm) Extrem General: No clubbing, No cyanosis and No edema Assessment & Plan Assessment & Plan (1) COPD (chronic obstructive pulmonary disease): Code(s): J44.9 - Chronic obstructive pulmonary disease, unspecified Category: Medical Qualifiers: COPD type: chronic bronchitis Chronic bronchitis type: unspecified Qualified Code(s): J42 - Unspecified chronic bronchitis Plan: Reasonable control on underlying regimen of Breztri, duo nebs, and albuterol MDI. Continue current regimen. Add low-dose prednisone daily as needed. (2) Supplemental oxygen dependent: Code(s): Z99.81 - Dependence on supplemental oxygen Category: Medical Plan: Continue supplemental oxygen to maintain O2 saturation of 88-93%. Orders: Orders Pulmonary Rehab Today J42 - Unspecified chronic bronchitis Medications: New prednisone One daily as needed 10 mg PO DIRECTED 20 tabs 2RF J42 - Unspecified chronic bronchitis Coding Level of Care Code Est Pt Level 4 (62472) Diagnoses Chronic bronchitis, unspecified chronic bronchitis type J42 COPD type: chronic bronchitis Chronic bronchitis type: unspecified Supplemental oxygen dependent Z99.81
--- OUTSIDE RECORDS SUMMARY | 2025-02-26 15:38 | XMS_ITS | Clinical Summary ---
Author Organization [facility] Address [address] [place] [address] Care Team Providers Care Housing Director Name Role Phone Carlos Cosby Primary Care Provider [phone] Allergies No known active allergies Medications Medication [...] Group Subscriber ID Effective Dates Phone Address [facility] [id number] 2016-Present 1 [facility] [address] [place] [phone] O Care Teams Housing Director Relationship Specialty Start Date End Date Carlos Cosby PA [address] [place] [address] PCP - General Physician Rfid Systems Engineer 07/30/18
--- OUTSIDE RECORDS SUMMARY | 2025-02-26 15:38 | XMS_ITS | Patient Health Record ---
Author Organization [facility] Address [address] [place] [phone] Care Team Providers Care Metal Riveter Name Role Phone Philip (RETIRED) Jason VENTURA Primary Care Provide r Unavailable Lester Hall Unavailable [phone] Reason For Referral No Information Plan Of Treatment No Information Insurance Providers Payer Name Payer Address Payer Phone Subscriber Number Group Number Insured Name Patient Relationship to Insured Coverage Start Date Coverage End Date [facility] [address] [place] [phone] [id number] KEITH KRAFT Self - patient is the insured
== END 2025-02-26 11:28 | disposition home or self-care (01) ==
LOC: HO.HPS 10:36
PROVIDERS: PCP Physician Assistant; Visit Provider Internal Medicine Pulmonary Disease
DX: J42 Unspecified chronic bronchitis (principal); Z99.81 Dependence on supplemental oxygen
CPT/HCPCS: 99214

== ENCOUNTER → 2025-02-26 10:35 | Outpatient (BNVA) | payer MEDICARE, MEDICAID, SELFPAY | PROVIDERS: PCP Physician Assistant; Visit Provider Internal Medicine Pulmonary Disease | DX: J44.89 Other specified chronic obstructive pulmonary disease (principal); Z99.81 Dependence on supplemental oxygen; Z87.891 Personal history of nicotine dependence; E66.9 Obesity, unspecified; Z68.33 Body mass index [BMI] 33.0-33.9, adult | CPT/HCPCS: 99212 ==

== ENCOUNTER 2025-04-07 09:38 | Outpatient (REF) | payer MEDICARE, OTHER, SELFPAY ==
[2025-04-07 10:55] LABS: Hematocrit 43.2 % (37.0-47.0); Hemoglobin 14.1 g/dl (12.0-16.0); Mean Corpuscular HGB Conc 32.6 g/dl (31.0-35.0); Mean Corpuscular Hemoglobin 30.7 pg (27.0-33.0); Mean Corpuscular Volume 94.1 fL (80.0-98.0); NRBC Abs Auto 0.000 X10*3/uL (0.0-0.012); NRBC Pct Auto 0.0 /100WBC (0.0-0.2); Platelet Count 183 X10*3/uL (160-400); Red Blood Count 4.59 X10*6/uL (4.20-5.50); White Blood Count 7.2 X10*3/uL (4.8-10.8)
[2025-04-07 12:00] LABS: Alanine Aminotransferase 19 U/L (0-31); Albumin Level 4.6 g/dL (3.5-5.0); Alkaline Phosphatase 77 U/L (39-117); Anion Gap 13 (12-20); Aspartate Amino Transferase 30 U/L (5-31); Blood Urea Nitrogen 22 mg/dL (9-16); Calcium 9.7 mg/dL (8.4-10.2); Carbon Dioxide 27 mmol/L (22-29); Chloride 106 mmol/L (96-108); Cholesterol 257 mg/dL (<200); Estimated Glomerular Filt Rate 48; HDL Cholesterol 48 mg/dL (>40); Potassium 4.6 mmol/L (3.3-5.1); Sodium 141 mmol/L (135-145); Total Protein 7.5 g/dL (6.5-8.0); Triglycerides 251 mg/dL (<150)
--- OUTSIDE RECORDS SUMMARY | 2025-04-07 12:25 | XMS_ITS | Patient Health Record ---
Author Organization [facility] Address [address] [place] [phone] Care Team Providers Care Apartment Maintenance Manager Name Role Phone Philip (RETIRED) Jason VENTURA Primary Care Provide r Unavailable Lester Hall Unavailable [phone] Reason For Referral No Information Plan Of Treatment No Information Insurance Providers Payer Name Payer Address Payer Phone Subscriber Number Group Number Insured Name Patient Relationship to Insured Coverage Start Date Coverage End Date [facility] [address] [place] [phone] [id number] KEITH KRAFT Self - patient is the insured
--- OUTSIDE RECORDS SUMMARY | 2025-04-07 12:25 | XMS_ITS | Clinical Summary ---
Author Organization [facility] Prior to 09/06/24 Address [address] [place] [address] Care Team Providers Care Bell Cleaner Name Role Phone Carlos Cosby Primary Care Provider [phone] Allergies No known active allergies Medications Medication [...] Group Subscriber ID Effective Dates Phone Address [facility] [id number] 2016-Present 1 [facility] [address] [place] [phone] [facility] Care Teams Bell Cleaner Relationship Specialty Start Date End Date Carlos Cosby PA [address] [place] [phone] PCP - General Physician Benefits Director 07/30/18
== END 2025-04-07 09:39 | disposition home or self-care (01) ==
LOC: HO.LAB 09:38
PROVIDERS: PCP Physician Assistant; Visit Provider Physician Assistant
DX: I10 Essential (primary) hypertension (principal); E78.2 Mixed hyperlipidemia; E66.811 Obesity, class 1; J42 Unspecified chronic bronchitis; E78.9 Disorder of lipoprotein metabolism, unspecified
CPT/HCPCS: 36415; 80053; 80061; 85027; 99212

== ENCOUNTER 2025-04-07 11:35 | Outpatient (AMB) | payer MEDICARE, MEDICAID, SELFPAY ==
--- NOTE | 2025-04-07 11:39 | A.OFFPC_ITS ---
Vital Signs 04/07/25 11:40 Height 4 ft 11 in Weight 165 lb 4 oz BMI 33.4 BP 138/60 Blood Pressure Location Lt brachial Position Sitting Respiration 18 Pulse 98 Pulse Source Pulse Oximeter Temp Source Temporal Artery Scan Pulse Oximetry (%) 89 L Oxygen Delivery Method Room Air Intake Visit Reasons: follow up 3 months Network Technology Instructor Required: No Accompanied by: Self / Same As Patient Allergies morphine Allergy (Unknown, Verified 04/07/25 12:09) Unknown lisinopril Adverse Reaction (Intermediate, Verified 04/07/25 12:09) Hyperkalemia Medication List - Last Reconciled 04/07/25 by Carlos Cosby PA-C [(L)knee Orthosis, double upright, thigh and calf with adjustable flexion and extension joint As directed] acetaminophen ER 650 mg PO Q8H PRN albuterol sulfate 90 mcg/actuation 2 puffs inhalation Q4-6H PRN alendronate (Fosamax) 70 mg PO QWEEK 12 weeks amlodipine 5 mg PO DAILY 90 days bisacodyl (Dulcolax (bisacodyl)) 10 mg (2 x 5 mg) PO ONCE 1 day blood pressure monitor As directed blood pressure test kit-medium As directed Breztri Aerosphere 160-9-4.8 mcg/actuation (gcikkcndkl-nbinrboy-bqbxjxlkvt) 2 inhalations PO BID NS hydrochlorothiazide 12.5 mg PO DAILY loperamide 2 mg PO Q8H PRN 30 days magnesium oxide 400 mg PO DAILY 90 days [Oxygen -3LPM- B type cylinder As directed] prednisone 10 mg PO DIRECTED psyllium husk (Metamucil) 1 tbsp PO DAILY PRN 30 days semaglutide (weight loss) (Wegovy) 0.25 mg (0.5 mL) subcut QWEEK 4 weeks semaglutide (weight loss) (Wegovy) 1 mg (0.5 mL) subcut Q7D 4 weeks sertraline 50 mg PO DAILY 90 days Tobacco use date assessed: 04/07/25 Fall risk assessment: No Falls in past year Last assessed Fall Risk: 04/07/25 Dental Screening Dental Screen Date: 04/07/25 Did you have a dental visit in the last 12 months?: No Did you have a dental problem in the last 6 months where you did not have access to dental care?: No Was dental information given to patient?: No HPI follow up 3 months HPI Details Patient is a 70-year-old female here today for follow-up visit.? Patient's past medical history significant for hypertension, bilateral shoulder pain, COPD, lumbar Radiculopathy, obesity. Class 1 Obesity: Patient continues on GLP 1 therapy and has been able to lose weight., today's BMI at 33. She is interested in increasing her GLP 1 therapy dose for more weight loss and better control of her comorbid conditions. .. Hyperlipidemia: Most recent labs showing elevated total cholesterol and LDL. PLAN: Will add on statin therapy to help reduce her cardiovascular risk .. Hyperkalemia: Has followed up with Nephrology has stopped lisinopril and kidney function and potassium has normalized. Will continue on hydrochlorothiazide .. Hypertension:? Patient's blood pressure acceptable today in office. Her lisinopril has been held and renal function is better. Continues with hydrochlorothiazide .. COPD:? Was a former smoker.? Patient followed by [facility] pulmonology and does use supplemental oxygen via nasal cannula a daily basis. ? Laboratory Tests 01/08/21 03/02/21 06/03/21 10:17 10:11 13:51 RBC ESR 44 H 23 H Potassium Chloride BUN Creatinine Fasting Glucose C-Reactive Protein 5.91 H 1.11 H Cholesterol 222 Triglycerides LDL Cholesterol, C alc 130 TSH Urine Microalbumin 09/09/22 09/13/23 09/13/23 10:36 07:49 08:03 RBC 4.46 ESR Potassium Chloride BUN Creatinine 1.12 1.01 Fasting Glucose 121 H 111 H C-Reactive Protein Cholesterol 245 H Triglycerides 206 H LDL Cholesterol, C alc 155 H TSH 0.98 Urine Microalbumin 24.0 01/05/24 01/16/24 05/24/24 09:59 12:25 10:13 RBC ESR Potassium 6.1 H* D 4.5 D 5.2 H Chloride BUN Creatinine Fasting Glucose C-Reactive Protein Cholesterol 227 H Triglycerides 242 H LDL Cholesterol, C alc 135 H TSH Urine Microalbumin 07/12/24 10/06/24 11/10/24 10:02 12:46 14:20 RBC 3.92 L ESR Potassium 5.7 H 4.0 D Chloride 110 H BUN 30 H Creatinine 1.05 Fasting Glucose C-Reactive Protein Cholesterol Triglycerides LDL Cholesterol, C alc 128 H TSH Urine Microalbumin 04/07/25 09:55 RBC 4.59 ESR Potassium 4.6 Chloride BUN Creatinine 1.13 Fasting Glucose C-Reactive Protein Cholesterol 257 H Triglycerides LDL Cholesterol, C alc 159 H TSH Urine Microalbumin PFS Medical History Personal history of nicotine dependence Fatigue Back pain Osteoporosis (~2015) Supplemental oxygen dependent PMR (polymyalgia rheumatica) HTN (hypertension) COPD (chronic obstructive pulmonary disease) Knee osteoarthritis Lumbar radiculopathy, chronic Obesity (BMI 30-39.9) Anxiety Surgical History History of kyphoplasty (~2016) History of tubal ligation Family History Father Heart disease Diabetes mellitus Mother Stroke Social History Housing: House Alcohol intake: never Patient Tobacco Use Status: Former Tobacco user Tobacco use type: Cigarette e-Cigarette/Vaping Use: Never Used Second Hand Smoke Exposure: Yes service: No Current occupational status: employed Cognitive needs: No Hearing needs: No Vision needs: No Questionnaire Thrive Questionnaire Date Thrive assessed: 09/25/24 FANG-7 AMB Questionnaire FANG-7 Date FANG - 7 assessed: 09/25/24 Source: Developed by Drs. Lester Pompa, Angeli Huerta, Colin Hugo and colleagues, with an educational grupo from [employer]. Review of Systems Const Denies headache(s) Eyes Denies loss of vision ENT Denies vertigo, Denies dizziness, Denies headache(s) and Denies sore throat Card Denies chest pain, Denies leg edema and Denies lightheadedness Resp Denies cough, Denies hemoptysis and Denies wheezing GI Denies abdominal pain, Denies melena, Denies constipation, Denies diarrhea and Denies vomiting Denies urinary frequency, Denies dysuria and Denies urinary urgency Musc Denies arthralgias, Denies joint swelling, Denies numbness and Denies tingling Neuro Denies Abnormal speech present, Denies behavioral changes, Denies vertigo, Denies dizziness, Denies headache(s), Denies loss of vision, Denies memory loss, Denies numbness and Denies tingling Psych Denies anxiety, Denies behavioral changes, Denies depression, Denies memory loss and Denies panic attacks Herberth/Lymph Denies easy bleeding and Denies easy bruising Aller/Immun Denies wheezing Physical exam (Primary Care) Vital Signs: Last Vital Signs Pulse 98 04/07/25 11:40 Resp 18 04/07/25 11:40 BP 138/60 04/07/25 11:40 Pulse Ox 89 L 04/07/25 11:40 Oxygen Delivery Method Room Air 04/07/25 11:40 BMI result Body Mass Index 33.4 Tobacco/Smoking Status: Tobacco use Status Tobacco use date assessed 04/07/25 04/07/25 11:47 Patient Tobacco Use Status Former Tobacco user 04/07/25 11:47 Tobacco use type Cigarette 04/07/25 11:47 e-Cigarette/Vaping Use Never Used 04/07/25 11:47 Thrive Assessment: Date of Thrive Assessment Date Thrive assessed 09/25/24 04/07/25 11:47 Const General: healthy appearing, no acute distress, alert and awake Nutritional Appearance: well nourished Orientation/consciousness: oriented to person, oriented to place and oriented to time HENMT Ears: TM's normal bilaterally General nose exam: Normal nasal mucous membranes and turbinates present Eyes Conjunctivae: conjunctivae normal Sclerae: sclerae normal Pupils: Equal, round and reactive pupils present Neck Neck: Yes no lymphadenopathy and Yes no JVD Thyroid: Thyroid normal Carotids: no bruits Resp Effort & Inspection: normal respiratory effort and not tachypneic Auscultation: no crackles, no rales, no rhonchi and no wheezes Cardio Rate: regular rate Rhythm: regular rhythm Heart sounds: no murmurs and normal S1 and S2 GI Palpation (GI): Soft to palpation, nontender, no hepatomegaly and no splenomegaly Auscultation: normal bowel sounds Skin General skin exam: no rashes or lesions noted and dry skin Neuro General: oriented to person, oriented to place and oriented to time Cranial nerves: Yes Equal, round and reactive pupils present Speech: No Abnormal speech present Gait exam (Neuro): Normal gait present Motor exam (neuro): no tremor noted Extrem Right upper extremity: full ROM Left upper extremity: full ROM Right lower extremity: full ROM; no edema Left lower extremity: full ROM; no edema Psych Mental Status: mental status grossly normal Speech and movement: Normal speech and movement present Affect: normal affect Attitude: cooperative Thought process: Normal thought process present Coding Level of Care Code Est Pt Level 4 (45358) Diagnoses Primary hypertension I10 Hypertension type: primary hypertension Mixed hyperlipidemia E78.2 Hyperlipidemia type: mixed hyperlipidemia Class 1 obesity E66.811 Chronic bronchitis, unspecified chronic bronchitis type J42 COPD type: chronic bronchitis Chronic bronchitis type: unspecified Assessment & Plan Assessment & Plan (1) HTN (hypertension): Code(s): I10 - Essential (primary) hypertension Category: Medical Qualifiers: Hypertension type: primary hypertension Qualified Code(s): I10 - Essential (primary) hypertension Plan: Patient's blood pressure acceptable today in office. Will continue her current dose of hydrochlorothiazide with goal blood pressure to remain below 140/90. Of note lisinopril has been held due to hyperkalemia. (2) HLD (hyperlipidemia): Code(s): E78.5 - Hyperlipidemia, unspecified Category: Medical Qualifiers: Hyperlipidemia type: mixed hyperlipidemia Qualified Code(s): E78.2 - Mixed hyperlipidemia Plan: Patient's most recent lipid panel showing elevated total cholesterol and LDL. Goal LDL is to be below 130 (3) Class 1 obesity: Code(s): E66.811 - Obesity, class 1 Category: Medical Plan: Patient has been able to lose a small amount of weight on GLP 1 therapy. Patient interested in increasing her GLP 1(Wegovy) dose to 1.7 mg for more weight loss and better management of her comorbid conditions.. Unfortunately has not been able to be physically active due to her back issues in her COPD. (4) COPD (chronic obstructive pulmonary disease): Code(s): J44.9 - Chronic obstructive pulmonary disease, unspecified Category: Medical Qualifiers: COPD type: chronic bronchitis Chronic bronchitis type: unspecified Qualified Code(s): J42 - Unspecified chronic bronchitis Plan: Patient is a former smoker. Patient continues to use supplemental oxygen Patient followed by pulmonology and continues on maintenance inhalers. For the most part she feels her pulmonary status is stable
[2025-04-07 11:40] VITALS: BP 138/60; PULSE 98; RESP 18; O2SAT 89; BMI 33.4
== END 2025-04-07 12:18 | disposition home or self-care (01) ==
LOC: HO.HMCH 11:35
PROVIDERS: PCP Physician Assistant; Visit Provider Physician Assistant
DX: I10 Essential (primary) hypertension (principal); E78.2 Mixed hyperlipidemia; E66.811 Obesity, class 1; J42 Unspecified chronic bronchitis